=== PATIENT | male | born 1945 | race Caucasian/White ===

== ENCOUNTER 2017-09-27 20:12 | Inpatient (IN) | payer OTHER ==
[~2017-09-27] VITALS: Ht 170.2 cm; Wt 86.9 kg
[~2017-09-27 20:12] MED LIST: ALBU1AER9 INH; ASPEC81 PO; CLB200 PO; FLV1 PO; FRRS300 PO; GFNSR600 PO; LACTATED RINGER'S 1000ML 1,000 ML IV SCH; METH2.5T PO; METO25TA56 PO; RANI150T85 PO; VITA100C4 PO
--- NOTE | 2017-09-27 20:35 | EMERGENCY ROOM VISIT NOTE ---
History Report prepared by Bryant: Zacarias Pan Under the Supervision of: Dr. Papi Hernandez M.D. First contact with patient: 20:20 Chief Complaint: DIZZY Stated Complaint: LIGHTHEADED, PAIN IN LEFT SIDE BACK History of Present Illness The patient is a 72 year old white male with a past medical history of anemia, GERD, CAD, rheumatoid arthritis who presents to the ED with a cc of intermittent lightheadedness beginning 2 days ago. Positive intermittent palpitations, feeling warm, left-sided back pain. Negative eating or drinking problems, abdominal pain, vomiting, cough, chills, numbness, hematochezia, urinary symptoms, or incontinence. He states that being active makes the lightheadedness worse. The patient notes that ever since he has had his heart problems, he has had intermittent palpitations, but it has been happening over the past 2 days as well. He denies any abnormal events that have happened recently that would have caused his dizziness. The [facility]. He adds that he has had some left sided back pain ever since he fell a couple months ago. He notes that he takes baby Aspirin daily but no other blood thinners. He notes no heart surgery history. The patient has no history of blood clots in the legs or lungs. Source of History: patient Onset: 2 days ago Position: other (global) Quality: other (lightheadedness) Timing: intermittent Modifying Factors (Worsening): exertion Modifying Factors (Relieving): rest Associated Symptoms: + back pain, No chills, No cough, No vomiting, No abdominal pain, No hematochezia, No urinary symptoms Note: Positive intermittently feeling warm. Intermittent palpitations. Review of Systems See HPI for pertinent positives and negatives. A total of ten systems were reviewed and were otherwise negative. Past Medical & Surgical Medical Problems: (1) Anemia (2) Esophageal Reflux (3) Gastroesophageal reflux disease (4) Generalized osteoarthritis (5) Rectal hemorrhage (6) Rheumatoid arteritis (7) Rheumatoid Arthritis (8) Sensorineural hearing loss, bilateral Family History No pertinent family history Social History Smoking Status: Former Smoker Alcohol Use: none Marital Status: Current/Historical Medications Scheduled Aspirin (Aspirin 81), 81 MG PO DAILYBB Celecoxib (CeleBREX), 200 MG PO DAILY Cholecalciferol (Vitamin D 1000 Unit), 1,000 INTER.UNIT PO DAILY Folic Acid (Folic Acid), 1 MG PO DAILY Methotrexate (Methotrexate), 15 MG PO WK Metoprolol Tartrate (Lopressor) (Lopressor), 12.5 MG PO BID Nitroglycerin (Nitrostat), 0.4 MG UT PRN Prednisone (Prednisone), 2.5 MG PO DAILY Ranitidine (Zantac), 150 MG PO BID Simvastatin (Zocor), 40 MG PO QPM Vitamin E (E-200), 200 UNITS PO DAILY Scheduled PRN Acetaminophen (Tylenol Arthritis Ext Rel), 650 MG PO Q8H PRN for Pain Tramadol (Ultram), 50 MG PO Q6 PRN for Pain [Proair 108MCG/Act], 2 PUFF INH BID PRN for SOB/Wheezing Allergies Coded Allergies: No Known Allergies (Verified , 07/15/11) Physical Exam Vital Signs Date Time Temp Pulse Resp B/P (MAP) Pulse Ox O2 Delivery O2 Flow Rate FiO2 09/27/17 21:30 87 18 152/89 98 Room Air 09/27/17 21:11 78 18 148/79 99 Room Air 09/27/17 21:10 98 Room Air 09/27/17 21:05 137 147/112 09/27/17 21:00 115 09/27/17 20:14 36.7 73 18 147/106 92 Room Air Physical Exam GENERAL: Awake, alert, well-appearing, NAD. Appears stated age, wearing glasses. HENT: Normocephalic, atraumatic. Edentulous. EYES: Normal conjunctiva. Sclera non-icteric. NECK: Supple. No nuchal rigidity. FROM. RESPIRATORY: CTAB, no rhonchi, wheezing, crackles CARDIAC: RRR, no MRG ABDOMEN: Soft, NTND, BS+ MSK: Reproducible left posterior rib pain, no stepoff. No chest wall TTP, no LE edema NEURO: GCS 15, CN 2-12 intact, moves all 4s on command SKIN: No rash or jaundice noted. Medical Decision & Procedures Laboratory Results 09/27/17 21:00 Red Blood Count 4.74, Mean Corpuscular Volume 77.8, Mean Corpuscular Hemoglobin 24.1, Mean Corpuscular Hemoglobin Concent 30.9, Mean Platelet Volume 8.4, Neutrophils (%) (Auto) 58.3, Lymphocytes (%) (Auto) 25.2, Monocytes (%) (Auto) 13.0, Eosinophils (%) (Auto) 2.5, Basophils (%) (Auto) 1.0, Neutrophils # (Auto ) 3.00, Lymphocytes # (Auto) 1.30, Monocytes # (Auto) 0.67, Eosinophils # (Auto ) 0.13, Basophils # (Auto) 0.05 09/27/17 21:00 Test 09/27/17 21:00 09/27/17 21:04 White Blood Count 5.15 K/uL (4.8-10.8) Red Blood Count 4.74 M/uL (4.7-6.1) Hemoglobin 11.4 g/dL (14.0-18.0) Hematocrit 36.9 % (42-52) Mean Corpuscular Volume 77.8 fL (80-100) Mean Corpuscular Hemoglobin 24.1 pg (25-34) Mean Corpuscular Hemoglobin Concent 30.9 g/dl (32-36) Platelet Count 223 K/uL (130-400) Mean Platelet Volume 8.4 fL (7.4-10.4) Neutrophils (%) (Auto) 58.3 % Lymphocytes (%) (Auto) 25.2 % Monocytes (%) (Auto) 13.0 % Eosinophils (%) (Auto) 2.5 % Basophils (%) (Auto) 1.0 % Neutrophils # (Auto) 3.00 K/uL (1.4-6.5) Lymphocytes # (Auto) 1.30 K/uL (1.2-3.4) Monocytes # (Auto) 0.67 K/uL (0.11-0.59) Eosinophils # (Auto) 0.13 K/uL (0-0.5) Basophils # (Auto) 0.05 K/uL (0-0.2) RDW Standard Deviation 47.5 fL (36.4-46.3) RDW Coefficient of Variation 16.7 % (11.5-14.5) Immature Granulocyte % (Auto) 0.0 % Immature Granulocyte # (Auto) 0.00 K/uL (0.00-0.02) Prothrombin Time 10.8 SECONDS (9.0-12.0) Prothromb Time International Ratio 1.0 (0.9-1.1) Activated Partial Thromboplast Time 23.9 SECONDS (21.0-31.0) Partial Thromboplastin Ratio 0.9 Anion Gap 7.0 mmol/L (3-11) Est Creatinine Clear Calc Drug Dose 52.0 ml/min Estimated GFR () 61.2 Estimated GFR (Non- 52.8 BUN/Creatinine Ratio 14.7 (10-20) Calcium Level 8.6 mg/dl (8.5-10.1) Phosphorus Level 3.3 mg/dl (2.5-4.9) Magnesium Level 2.3 mg/dl (1.8-2.4) Troponin I < 0.015 ng/ml (0-0.045) Pro-B-Type Natriuretic Peptide 427 pg/ml (0-900) Thyroid Stimulating Hormone (TSH) 2.510 uIu/ml (0.300-4.500) Bedside Troponin I < 0.030 ng/ml (0-0.045) Laboratory results reviewed by me Medications Administered Medications (Trade) Dose Ordered Sig/Sherie Route Start Time Stop Time Status Last Admin Dose Admin Sodium Chloride 500 ml @ 500 mls/hr Q1H STAT IV 09/27/17 20:58 09/27/17 21:57 DC 09/27/17 21:02 500 MLS/HR Metoprolol Tartrate (Lopressor Iv) 5 mg STK-MED ONCE .ROUTE 09/27/17 20:58 09/27/17 20:59 DC 09/27/17 21:05 5 MG ECG Per My Interpretation Indication: other (dizzy) Rate (beats per minute): 120 Rhythm: atrial fibrillation (with RVR) Findings: other (normal qrs, normal axis, occasional P-waves but they are not consistent, PVC's noted) Comparison ECG Date: afib is new compared to 05/30/17, and ventricular rate has changed Change: 2nd ECG: Sinus rhythm with sinus arrhythmia, rate of 77 bpm, normal intervals, normal axis, no sts changes or twi. ED Course 2025: The patient was evaluated in room B3B. A complete history and physical exam was performed. 2152: I reevaluated the patient and his rate is better. 2158: Upon reexamination, the patient was feeling better. I discussed the test results and treatment plan with him. The patient will be evaluated for further management. 2211: Discussed the patient's case with Dr. Jeremiah Sanders beef trimmer. The patient will be evaluated for further treatment and disposition. Medical Decision Nursing notes reviewed. Ancillary studies and prior records reviewed. The patient is a 72 year old white male with a past medical history of anemia, GERD, CAD, rheumatoid arthritis who presents to the ED with a cc of intermittent lightheadedness beginning 2 days ago. Positive intermittent palpitations, feeling warm, left-sided back pain. Negative eating or drinking problems, abdominal pain, vomiting, cough, chills, numbness, hematochezia, urinary symptoms, or incontinence. Differential diagnosis: Etiologies such as benign positional vertigo, dehydration, hypovolemia, anemia, tumor, infection, hypoglycemia, electrolyte abnormalities, cardiac sources, intracerebral event, toxicologic, neurologic, as well as others were entertained. Patient was seen and evaluated at the bedside. Patient had been complaining some intermittent lightheadedness. Patient states it is more present when he is up and about walking. Patient denies any syncope. Patient does take a baby aspirin but no other blood thinning medications. Patient does have prior history of inferior [place] in the 80s but was treated medically and not with any other surgical intervention. On exam the patient is well-appearing. Patient did have blood work completed, EKG, troponin, BNP, chest x-ray. Patient 's EKG did show questionable A. fib. There did appear to be intermittent P waves and these appeared to be buried in the T-wave. Unsure as to whether not this is an intermittent sinus with a possible SVT or if this is just sinus tachycardia. There is also possibility that is intermittent sinus with possible A. fib. The morphology is fairly monomorphic with a narrow QRS complex. Given that the patient has been on Lopressor he was given IV Lopressor with improvement in both his symptoms as well as his tachycardia. Repeat EKG did show sinus with sinus arrhythmia. No obvious ischemic changes and he had normal intervals. Given the patient's symptoms with questionable A. fib versus some other sort of arrhythmia believe that the patient would benefit from further evaluation and treatment per the hospitalist and quite possibly the hand weaver given the patient has not had any testing that I can see in the EMR in many years. Patient was admitted for further evaluation and treatment. Medication Reconcilliation Current Medication List: was personally reviewed by me Blood Pressure Screening Patient's blood pressure: Elevated blood pressure Referred to hospitalist. Consults Time Called: 2204 Consulting Physician: Dr. Jeremiah Sanders beef trimmer Returned Call: [id number] Discussed the patient's case with Dr. Jeremiah Sanders beef trimmer. The patient will be evaluated for further treatment and disposition. Impression Primary Impression: Atrial fibrillation with RVR Additional Impressions: Anemia Dizziness Critical Care I have personally spent greater than 35 minutes of critical care time in the direct management of this patient. This includes bedside care, interpretation of diagnostic studies, and testing, discussion with consultants, patient, and family members, and other required patient management activities. This 35 minutes is in excess of all separately billable procedures. Scribe Attestation The scribe's documentation has been prepared under my direction and personally reviewed by me in its entirety. I confirm that the note above accurately reflects all work, treatment, procedures, and medical decision making performed by me. Departure Information Dispostion Being Evaluated By Hospitalist Referrals Stanley Christian III, M.D. (PCP) Patient Instructions My [facility] Problem Qualifiers Additional Impressions: Anemia Anemia type: unspecified type Qualified Codes: D64.9 - Anemia, unspecified
[2017-09-27] MEDS ORDERED: METOPROLOL TARTRATE 1 MG/ML VIAL IV STA (20:58)
[2017-09-27] MEDS ORDERED: SODIUM CHLORIDE 0.9% 500ML 500 ML IV STA (20:58)
[2017-09-27] MEDS ORDERED: METOPROLOL TARTRATE 1 MG/ML VIAL ONE (20:58)
[2017-09-27 21:12] LABS: BASO ABS # 0.05 K/uL (0-0.2); EOS % 2.5 %; EOS ABS # 0.13 K/uL (0-0.5); HEMATOCRIT 36.9 % (42-52); HEMOGLOBIN 11.4 g/dL (14.0-18.0); LYMPH % 25.2 %; MEAN CELL VOLUME 77.8 fL (80-100); MEAN CORPUSCULAR HEMOGLOBIN 24.1 pg (25-34); MEAN CORPUSCULAR HGB CONC 30.9 g/dl (32-36); MEAN PLATELET VOLUME 8.4 fL (7.4-10.4); MONO ABS # 0.67 K/uL (0.11-0.59); NEUT % 58.3 %; PLATELET COUNT 223 K/uL (130-400); RED CELL DISTRIBUTION WIDTH CV 16.7 % (11.5-14.5); RED CELL DISTRIBUTION WIDTH SD 47.5 fL (36.4-46.3); WHITE BLOOD COUNT 5.15 K/uL (4.8-10.8)
[2017-09-27 21:20] LABS: PTT PATIENT 23.9 SECONDS (21.0-31.0)
[2017-09-27] MEDS ORDERED: PRD/25 PO (21:30)
[2017-09-27] MEDS ORDERED: FLV1 PO (21:30)
[2017-09-27] MEDS ORDERED: CLB/200 PO (21:30)
[2017-09-27] MEDS ORDERED: ASPI-435 PO (21:30)
[2017-09-27] MEDS ORDERED: VITACAP36 PO (21:30)
[2017-09-27] MEDS ORDERED: ACET1TAB84 PO (21:30)
[2017-09-27] MEDS ORDERED: TRAM-10 PO (21:30)
[2017-09-27] MEDS ORDERED: NTRGSL/4 UT (21:30)
[2017-09-27] MEDS ORDERED: CHOL100027 PO (21:30)
[2017-09-27] MEDS ORDERED: SIMV40TA2 PO (21:30)
[2017-09-27] MEDS ORDERED: PROAIR INH (21:30)
[2017-09-27 21:34] LABS: BLOOD UREA NITROGEN 19 mg/dl (7-18); CALCIUM 8.6 mg/dl (8.5-10.1); CARBON DIOXIDE 26 mmol/L (21-32); CREATININE 1.32 mg/dl (0.60-1.40); GLUCOSE 111 mg/dl (70-99); POTASSIUM 3.7 mmol/L (3.5-5.1); SODIUM 140 mmol/L (136-145)
[2017-09-27 21:45] LABS: PHOSPHORUS 3.3 mg/dl (2.5-4.9)
[2017-09-27] MEDS ORDERED: METOPROLOL SUCC 25MG EXT REL TAB PO STA (21:53)
--- NOTE | 2017-09-27 22:42 | DIAGNOSTIC IMAGING REPORT ---
L RIBS UNILATERAL WITH PA CHEST CLINICAL HISTORY: lightheadedness, fall w/ L posterior rib pain COMPARISON STUDY: Chest 08/09/2007. FINDINGS: No pneumothorax. No pleural effusions. Retrocardiac opacity suggestive of a large hiatus hernia. The heart remains mildly enlarged. The lungs are clear. Deformity of the left anterior fourth rib favors an old, healed fracture. No acute rib fractures identified. IMPRESSION: 1. No acute rib fractures. No pneumothorax. 2. Large hiatus hernia is again noted. Electronically signed by: Farhad Ascencio M.D. 09/27/2017 10:41 PM Dictated Date/Time: 09/27/2017 10:38 PM
[2017-09-27] MEDS ORDERED: POTASSIUM CHLORIDE 10 MEQ TABCR PO STA (22:48)
[2017-09-27] MEDS ORDERED: OPTIRAY 320 IV PRN (23:15)
[2017-09-27] MEDS ORDERED: LACTATED RINGER'S 1000ML 1,000 ML IV SCH (23:15)
[2017-09-27 23:17] LABS: ALBUMIN 3.7 gm/dl (3.4-5.0); AST/SGOT 19 U/L (15-37); LIPASE 238 U/L (73-393); TOTAL PROTEIN 7.7 gm/dl (6.4-8.2)
[2017-09-27 23:21] LABS: ALKALINE PHOSPHATASE 92 U/L (45-117); ALT/SGPT 20 U/L (12-78)
[2017-09-28] VITALS (14 sets, daily range): BP systolic 137–166; BP diastolic 70–97; PULSE 68–90; TEMP 36.7–37.2; O2SAT 94–96; Ht 170.2 cm; Wt 86.9 kg
[2017-09-28] MEDS ORDERED: LEVALBUTEROL/IPRATROPIUM NEB INH PRN
[2017-09-28] MEDS ORDERED: ACETAMINOPHEN 325 MG TAB PO PRN
[2017-09-28] MEDS ORDERED: TRAMADOL HCL 50 MG TAB PO PRN
[2017-09-28] MEDS ORDERED: HYDROmorphone INJ 0.5 MG/0.5 ML SYR IV PRN
[2017-09-28] MEDS ORDERED: NITROGLYCERIN 0.4 MG SL PER TAB CHARGE SL PRN
[2017-09-28] MEDS ORDERED: PROCHLORPERAZINE INJ 5 MG in SYRINGE 4 ML IV PRN
[2017-09-28] MEDS ORDERED: ASPIRIN 81 MG ECTAB PO STA (00:35)
[2017-09-28] MEDS ORDERED: IV FLUIDS COMPLETED PRN (00:45)
[2017-09-28] MEDS ORDERED: IPRATROPIUM BROMIDE NEB SOLN 0.02% 2.5 ML VIAL INH PRN (02:00)
[2017-09-28] MEDS ORDERED: LEVALBUTEROL 1.25MG/0.5ML NEB INH PRN (02:00)
[2017-09-28] MEDS ORDERED: LACTATED RINGER'S 1000ML 1,000 ML IV ONE (02:30)
[2017-09-28] MEDS ORDERED: ENOXAPARIN 40 MG/0.4 ML SYR SC SCH (04:00)
--- NOTE | 2017-09-28 04:34 | HISTORY & PHYSICAL EXAMINATION ---
DATE OF ADMISSION: 09/27/2017 PRIMARY CARE PHYSICIAN: Dr. Castro. CHIEF COMPLAINT: Dizziness, palpitations. HISTORY OF PRESENT ILLNESS: History obtained from patient and records. Medical history significant for CAD, hypertension, steroid-dependent rheumatoid arthritis, past tobacco abuse, chronic anemia (recent hemoglobin 13 from November 2015). Recent confinement last 2011 for C. diff colitis. Two days history of palpitations, dizziness described as lightheadedness, no headache, no chest pain, no shortness of breath. Left-sided back pain which he has had for a few weeks after a fall on his left side. Patient complaint with home meds, denies unusual stress at home or inordinate caffeine intake. Patient brought to the Emergency Room. Patient noted to be tachycardic upon arrival in the ER, possible AFib as per ER provider. Patient's heart rate settled down after IV fluids and IV Lopressor. Patient also given Toprol-XL at the ER. Patient currently comfortable. MEDICAL HISTORY: As above. History of CAD not requiring intervention about 20 years ago. Cardiac catheterization was done at [facility]. 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 Hampton at [place]. Last follow up was about 20 years ago as per patient. Colonoscopy from 2015 showed diverticulosis, 2009 upper EGD showed gastritis. SURGERIES: Carpal tunnel surgery, back surgery. HOME MEDICATIONS: Include aspirin, Tylenol, Celebrex, vitamin D, folic acid, methotrexate, Lopressor, Nitrostat, ProAir, prednisone, Ultram, Zantac, vitamin B, vitamin E. ALLERGIES: No known drug allergies. FAMILY HISTORY: Heart disease. PERSONAL AND SOCIAL HISTORY: Past tobacco use. No chronic intake of alcoholic beverages. 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 REVIEW OF SYSTEMS: As per HPI. All 10 systems reviewed, all other ROS negative. PHYSICAL EXAMINATION: VITAL SIGNS: Blood pressure was noted to be 147/106, later 130/80, pulse rate initially 137 later 78, RR 18, temperature 36.7, sats 98 on RA. GENERAL: Very pleasant, no respiratory distress. Slightly hard of hearing. SKIN: Pallor, warm. HEENT: Alopecia. Pale palpebral conjunctiva. No ptosis. Dry mucosa. NECK: Short, supple. CHEST: Clear to auscultation. Minimal chest wall tenderness left. HEART: RRR, no murmur ABD : Some distention, nontender RECTAL: Intact sphincter, yellow stool, heme negative. EXTREMITIES: No edema. No tenderness, no other gross deformities. . NEUROLOGIC: Coherent. No gross focality except for some hearing impairment on the right ear. LABORATORY DATA: Hg 11.4 WBC 5 Platelets 223. Sodium 140, potassium 3.7, chloride 107, CO2 26, BUN 90, creatinine 1.2, glucose 111. TSH 2.51. Troponin negative. EKG as per my interpretation, rate 120, sinus tachycardia, PVCs, no ischemia. CT head, no acute pathology. CTA initial read no aortic aneurysm, no PE, chronic calcifications, large hiatal hernia, no stomach wall thickening, calcified atelectasis. ASSESSMENT: 1. Palpitations, dizziness secondary to tachyarrhythmia rule out atrial fibrillation. Rule out orthostasis 2. Hypertension, slightly elevated. 3. Coronary artery disease as per records. 4. Past tobacco abuse. 5. Steroid dependent rheumatoid arthritis. 6. Hyperglycemia, possibly steroid induced rule out DM. 7. Left-sided chest wall pain from recent fall No fracture on rib x-ray. 8. Anemia PLAN: Observation PCU Double beta brenda dose. Maintain potassium greater than 4 2D echo, Cardio consult RE palpitations. Check orthostatic vitals. Anemia workup. Check hemoglobin A1c. DVT prophylaxis, Lovenox subQ. Full code. MTDD
[2017-09-28 05:32] LABS: BASO % 1.5 %; BASO ABS # 0.07 K/uL (0-0.2); EOS ABS # 0.14 K/uL (0-0.5); HEMATOCRIT 32.4 % (42-52); HEMOGLOBIN 9.9 g/dL (14.0-18.0); IG# 0.01 K/uL (0.00-0.02); LYMPH ABS # 1.06 K/uL (1.2-3.4); MEAN CELL VOLUME 77.9 fL (80-100); MEAN CORPUSCULAR HEMOGLOBIN 23.8 pg (25-34); MEAN CORPUSCULAR HGB CONC 30.6 g/dl (32-36); MEAN PLATELET VOLUME 8.1 fL (7.4-10.4); MONO % 15.2 %; NEUT % 57.1 %; NEUT ABS # 2.62 K/uL (1.4-6.5); PLATELET COUNT 200 K/uL (130-400); RED CELL DISTRIBUTION WIDTH CV 16.7 % (11.5-14.5); RED CELL DISTRIBUTION WIDTH SD 47.1 fL (36.4-46.3); RETIC COUNT % 1.4 % (0.5-2.0)
[2017-09-28 06:03] LABS: BLOOD UREA NITROGEN 17 mg/dl (7-18); CALCIUM 8.1 mg/dl (8.5-10.1); CARBON DIOXIDE 26 mmol/L (21-32); CREATININE 0.95 mg/dl (0.60-1.40); GLUCOSE 94 mg/dl (70-99); SODIUM 141 mmol/L (136-145)
[2017-09-28 06:16] LABS: TRANSFERRIN 305 mg/dl (200-360)
--- NOTE | 2017-09-28 06:45 | DIAGNOSTIC IMAGING REPORT ---
CT ANGIOGRAM OF THE CHEST CLINICAL HISTORY: Left-sided chest pain COMPARISON STUDY: Chest x-ray dated 05/25/2010 TECHNIQUE: Following the IV administration of 110 mL of Optiray-320, CT angiogram of the thorax was performed from the thoracic inlet to the lung bases utilizing the pulmonary embolus protocol. Images are reviewed in the axial, sagittal, and coronal planes. IV contrast was administered without complication. MIP imaging was performed. A dose lowering technique was utilized adhering to the principles of ALARA. CT DOSE: 520.22 mGy.cm FINDINGS: There is a moderate hiatal hernia. No pathologically enlarged axillary mediastinal or hilar lymph nodes were visualized. There was no evidence of thoracic aortic dilatation. There were no pulmonary artery filling defects to indicate acute pulmonary embolism. No pleural effusions are visualized. There is respiratory motion artifact. Underlying emphysema is suspected. There is slight mosaic attenuation of the lungs suggesting airway trapping. There is mild subpleural reticulation within the upper lobes. There is a calcified granuloma within the left upper lobe. There is no focal pulmonary consolidation. There are healing left-sided rib fractures. IMPRESSION: 1. No CT evidence of acute pulmonary embolism 2. No evidence of focal pulmonary consolidation 3. Moderate hiatal hernia with both a sliding and paraesophageal component. 4. No evidence of focal pneumonia 5. Healing left-sided rib fractures Electronically signed by: Natanael Avitia M.D. 09/28/2017 6:44 AM Dictated Date/Time: 09/28/2017 6:40 AM
--- NOTE | 2017-09-28 07:13 | DIAGNOSTIC IMAGING REPORT ---
HEAD WITHOUT CONTRAST (CT) CLINICAL HISTORY: 72 years-old Male presenting with dizziness, fall. TECHNIQUE: Multidetector CT imaging of the head was performed without the use of intravenous contrast. IV contrast: None. A dose lowering technique was used consistent with the principles of ALARA (as low as reasonably achievable). COMPARISON: 03/26/2008. CT DOSE (mGy.cm): The estimated cumulative dose is 537.48 mGy.cm. FINDINGS: Recycling Operations Manager topogram: Unremarkable. Proportional ventricular and sulcal prominence, likely age-related parenchymal volume loss. Brain parenchyma normal in appearance with preserved white-white differentiation. No mass effect or midline shift. No hemorrhage or acute territorial infarct. No extra-axial fluid collection. Paranasal sinuses and mastoid air cells clear. Calvarium intact. IMPRESSION: 1. No acute intracranial abnormality. Electronically signed by: Nelson Crowley M.D. 09/28/2017 7:12 AM Dictated Date/Time: 09/28/2017 6:46 AM
[2017-09-28 07:31] LABS: HEMOGLOBIN A1C 5.8 % (4.5-5.6)
[2017-09-28] MEDS ORDERED: AMIODARONE IV BOLUS / DRIP IV STA (08:41)
[2017-09-28] MEDS ORDERED: 0.2 MICRON FILTER SET 1 EA IV SCH (09:00)
[2017-09-28] MEDS ORDERED: AMIODARONE / D5W 100 ML PHARMACY PREPARED IV SCH ×2 (09:00)
[2017-09-28] MEDS ORDERED: AMIODARONE / D5W 200 ML IV SCH (09:10)
[2017-09-28] MEDS: RANITIDINE HCL 150 MG TAB PO SCH ×2 (09:11→20:25)
[2017-09-28 09:53] LABS: BASO % 1.3 %; BASO ABS # 0.06 K/uL (0-0.2); EOS % 2.1 %; HEMATOCRIT 33.3 % (42-52); HEMOGLOBIN 10.3 g/dL (14.0-18.0); LYMPH % 19.4 %; LYMPH ABS # 0.91 K/uL (1.2-3.4); MEAN CELL VOLUME 78.2 fL (80-100); MEAN CORPUSCULAR HEMOGLOBIN 24.2 pg (25-34); MEAN PLATELET VOLUME 8.4 fL (7.4-10.4); MONO ABS # 0.61 K/uL (0.11-0.59); NEUT % 64.2 %; NEUT ABS # 3.01 K/uL (1.4-6.5); PLATELET COUNT 208 K/uL (130-400); RED CELL DISTRIBUTION WIDTH CV 16.8 % (11.5-14.5); RED CELL DISTRIBUTION WIDTH SD 47.7 fL (36.4-46.3); WHITE BLOOD COUNT 4.69 K/uL (4.8-10.8)
[2017-09-28 09:57] LABS: MEAN CORPUSCULAR HGB CONC 30.9 g/dl (32-36)
[2017-09-28 10:01] LABS: PTT PATIENT 25.9 SECONDS (21.0-31.0)
--- NOTE | 2017-09-28 10:05 | ECHOCARDIOGRAM REPORT ---
*NOTICE TO RECEIVING REPUBLICAN AGENCY This information is strictly Confidential and protected under [place] law. [place] law prohibits you from making any further disclosure of this information unless further disclosure is expressly permitted by the written consent of the person to whom it pertains or is authorized by law. A general authorization for the release of medical or other information is not sufficient for this purpose. Hospital accepts no responsibility if the information is made available to any other person, INCLUDING THE PATIENT. Interpretation Summary * Name: MELVI PABON Study Date: 09/28/2017 07:59 AM BP: 137/87 mmHg * Patient Location: [facility] HR: 77 * : 1945 (M/d/yyyy) Gender: Male Height: 67 in * Age: 72 yrs Ethnicity: CA Weight: 194 lb * Ordering Physician: Moises Daniels * Referring Physician: Self, Referred * Performed By: Claudia Fernandes RCS * * Reason For Study: PALPITATIONS * BSA: 2.0 m2 * -- Conclusions -- * Normal LV chamber size with mild concentric LVH. * Mildly reduced LV systolic function, EF 45-50%. * Moderate to severe hypokinesis of the inferior/inferolateral rios, otherwise, normal wall motion. * The right ventricular cavity size is normal (basal dimension <4.2 cm in right ventricular apical 4-chamber view). The right ventricular systolic function is normal as assessed by tricuspid annular plane systolic excursion (TAPSE) (normal >1.5 cm). * Trace mitral regurgitation. * Trace tricuspid regurgitation. * Pulmonary hypertension is present with a PASP of 42 mmHg assuming a RA pressure of 3 mmHg. Procedure Details * A complete two-dimensional transthoracic echocardiogram was performed (2D, M-mode, Doppler and color flow Doppler). Left Ventricle * The left ventricle is normal in size. * There is mild concentric left ventricular hypertrophy. * Left ventricular systolic function is mildly reduced. * Ejection Fraction = 45-50%. * Moderate to severe hypokinesis of the inferior/inferolateral rios, otherwise, normal wall motion. Right Ventricle * The right ventricular cavity size is normal (basal dimension <4.2 cm in right ventricular apical 4-chamber view). * The right ventricular systolic function is normal as assessed by tricuspid annular plane systolic excursion (TAPSE) (normal >1.5 cm). Atria * The left atrial size is normal. * Right atrial size is normal. * No ASD detected; PFO is not assessed. Mitral Valve * The mitral valve anatomy is normal. * There is no mitral valve stenosis. * There is trace mitral regurgitation. Tricuspid Valve * The tricuspid valve anatomy is normal. * There is no tricuspid stenosis. * There is trace tricuspid regurgitation. Aortic Valve * The aortic valve is not well visualized. * No hemodynamically significant valvular aortic stenosis. * There is no significant aortic regurgitation. Pulmonic Valve * The pulmonary valve is not well seen, but the Doppler examination is normal without significant regurgitation or stenosis. Great Vessels * The aortic root is normal size. Pericardium/Pleural * There is no pericardial effusion. Left Ventricular Diastolic Function * Grade I diastolic dysfunction, (abnormal relaxation pattern). MMode 2D Measurements and Calculations IVSd 1.3 cm IVSs 1.4 cm LVIDd 4.5 cm LVIDs 4.0 cm LVPWd 1.4 cm LVPWs 1.3 cm IVS/LVPW 0.95 FS 11.9 % EDV(Teich) 91.8 ml ESV(Teich) 68.1 ml EF(Teich) 25.9 % EDV(cubed) 90.3 ml ESV(cubed) 61.8 ml EF(cubed) 31.6 % % IVS thick 7.9 % % LVPW thick -6.32 % LV mass(C)d 238.1 grams LV mass(C)dI 119.3 grams/m\S\2 LV mass(C)s 199.4 grams LV mass(C)sI 99.9 grams/m\S\2 SV(Teich) 23.7 ml SI(Teich) 11.9 ml/m\S\2 SV(cubed) 28.5 ml SI(cubed) 14.3 ml/m\S\2 Ao root diam 3.4 cm Ao root area 9.3 cm\S\2 ACS 2.1 cm LA dimension 3.7 cm LA/Ao 1.1 LVOT diam 2.0 cm LVOT area 3.1 cm\S\2 Doppler Measurements and Calculations Ao V2 max 147.1 cm/sec Ao max PG 8.7 mmHg Ao max PG (full) 5.7 mmHg PRACHI(V,A) 1.8 cm\S\2 PRACHI(V,D) 1.8 cm\S\2 LV V1 max PG 2.9 mmHg LV V1 max 85.6 cm/sec MR max pb 503.8 cm/sec MR max PG 101.5 mmHg PA V2 max 108.3 cm/sec PA max PG 4.7 mmHg TR max pb 313.5 cm/sec
[2017-09-28] MEDS: HEPARIN 25,000 UNIT/500ML D5W 500 ML IV SCH (10:20)
--- NOTE | 2017-09-28 14:46 | CARDIOLOGY CONSULTATION ---
DATE OF CONSULTATION: 09/28/2017 CONSULTATION REQUESTED BY: Dr. Daniels. REASON FOR CONSULTATION: Paroxysmal atrial fibrillation and ventricular tachycardia. HISTORY OF PRESENT ILLNESS: Mr. Tellez is a very pleasant 72-year-old gentleman who was last seen by a professional nursing assistant in 2004 in [place]. He presents to [facility] late in the evening of 09/27/2017 with a complaint of palpitations and lightheadedness and dizziness. The patient states that for the 2 days prior to presentation, he noticed that his heart was started beating very rapidly in his chest and that will be associated with some lightheadedness and dizziness. He states that these episodes were very fleeting and would only last a few seconds. They can occur either at rest or with exertion and were occurring rather frequently. When the frequency further increased and his dizziness became worse, he came into the Emergency Department. In the ER, he was found to be tachycardic. There was reported to be AFib by ER staff and a 12-lead EKG does confirm atrial fibrillation; however, the patient converted to sinus rhythm. His beta brenda dose was increased and he was admitted to telemetry. The patient states that since admission, he has been feeling much better and gets occasional lightheadedness while lying flat, but has not had any further dizzy spells. He states he is not syncopized at all and denies any recent chest pain either. PAST SURGICAL HISTORY: 1. Cardiac catheterization over 15 years ago. The patient reports that an artery in the back of his heart was blocked, but no intervention was needed. Records not available. 2. Carpal tunnel surgery. 3. Colonoscopies. 4. Upper endoscopies. MEDICAL ILLNESSES: 1. Coronary artery disease, unclear extent. 2. Osteoarthritis. 3. GERD. 4. Hearing loss. 5. Chronic anemia. 6. C. diff infection. FAMILY HISTORY: Noncontributory. SOCIAL HISTORY: Former smoker, quit approximately 20 years ago. Denies any alcohol or recreational drug use. He is . He has 1 child, who is in good health. 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 REVIEW OF SYSTEMS: As per HPI. All other review of systems reviewed and negative at this time. ALLERGIES: HUMIRA. MEDICATIONS AN OUTPATIENT: 1. Metoprolol tartrate 25 mg b.i.d. 2. Aspirin 81 mg daily. 3. Simvastatin 40 mg daily. 4. Zantac b.i.d. 5. Prednisone daily. PHYSICAL EXAMINATION: VITALS: Temperature 36.8, pulse 76, respiratory rate 12, and blood pressure 137/87. GENERAL: Awake, alert, and oriented x3, in no acute distress. HEENT: Normocephalic and atraumatic. Pupils equal, round react to light and accommodation. Extraocular muscles intact. Anicteric sclerae. Moist mucous membranes. NECK: No JVD and no bruit. CARDIOVASCULAR: Regular. Positive S4. Normal S1 and S2. No S3. No murmurs or rubs. PULMONARY: Clear to auscultation bilaterally. No rales, rhonchi, or wheezing. ABDOMEN: Bowel sounds x4. Soft. No rebound, guarding, or tenderness. No organomegaly. EXTREMITIES: No clubbing, cyanosis or edema. +2 pedal pulses bilaterally. SKIN: Warm and dry. TEST RESULTS: Review of telemetry monitoring shows multiple salvos of narrow complex tachycardia in the 150-180 range, possibly atrial flutter. Further review shows salvos of nonsustained ventricular tachycardia in a torsades de pointes pattern with variable amplitude. The patient's symptoms correlated with ventricular tachycardia. Otherwise, sinus rhythm. LABORATORY STUDIES OF SIGNIFICANCE: Hemoglobin 10.3 and platelet count of 208. INR of 1. Sodium 141, potassium 4, BUN 17, creatinine 1, and magnesium 2.3. A 2D echocardiogram was read as normal LV chamber size, mild concentric LVH, mildly reduced LV systolic function, EF 45%-50%, moderate to severe hypokinesis of the inferior and inferolateral rios. Otherwise, normal wall motion. Normal RV chamber size and systolic function, trace mitral regurgitation, and trace tricuspid regurgitation. Pulmonary hypertension is present with a PA systolic pressure of 42 mmHg assuming a right atrial pressure of 3 mm. Normal left atrial size. IMPRESSION: 1. Symptomatic nonsustained ventricular tachycardia. 2. Paroxysmal narrow complex tachycardia, likely atrial flutter. 3. Inferior wall hypokinesis on echocardiogram. RECOMMENDATIONS: It was my pleasure to see Mr. Tellez in consultation today. The pathophysiology of SVT and ventricular tachycardia were discussed with him at great lengths. He was counseled at this point with that we will be started him on amiodarone to suppress both the atrial and ventricular arrhythmias. The grave nature of ventricular tachycardia was discussed with him and he was counseled given the fact that he does have inferior wall motion abnormalities on echo and I do believe the most prudent course of action would be to proceed with cardiac catheterization in the a.m. once his arrhythmias have stabilized. He has no signs of any active ischemia at this time, so I do not believe an urgent catheterization is necessary and I prefer to have his arrhythmia suppressed with amiodarone first. Otherwise, he is having paroxysms of atrial flutter, so heparin drip will be started and he will likely be transitioned to a novel oral anticoagulant after the catheterization. Otherwise, his metoprolol dose was increased on admission to 25 mg b.i.d. and I agree with this. We may even consider titrating up further to 25 mg q. 6 hours should his arrhythmias persist. Otherwise, the patient will be made n.p.o. after midnight and the patient will be kept under close observation on the telemetry unit. Of note, approximately 2 hours and 30 minutes were spent in direct patient care at the bedside and with nursing for this consultation.
[2017-09-28] MEDS: AMIODARONE / D5W 200 ML IV SCH (15:28)
[2017-09-28 16:36] LABS: PTT PATIENT 47.7 SECONDS (21.0-31.0)
--- NOTE | 2017-09-28 18:32 | Progress Note ---
Internal Med Progress Note Date of Service: Sep 28, 2017. Provider Documentation: SUBJECTIVE: Denies of any chest pain, no shortness of breath No dizzy spells no palpitation Denies of any discomfort OBJECTIVE: Vital Signs-as noted below Exam: General-very pleasant, no apparent distress Eyes-sclera nonicteric ENT-moist oral mucosa Neck-no JVD Lungs-clear to auscultate, no wheeze or rales Heart-irregular Abdomen-soft nontender Extremities-no lower extremity rash, no deformity, no lower extremity edema Neuro-alert awake oriented 3, no focal neurological deficit Lab data as noted below. ASSESSMENT & PLAN: PAROXYSMAL A FLUTTER /A. FIB: Presents with palpitation, dizziness spell EKG shows narrow complex tachycardia/flutter with heart rate of 150-180, Patient started with beta-brenda Lopressor 25 mg twice daily IV heparin weight-based protocol SYMPTOMATIC NONSUSTAINED VENTRICULAR TACHYCARDIA Possible secondary to ischemic cardiomyopathy Echo shows moderate to severe hypokinesis of the inferior and inferolateral rios. EF 45-50% Patient started on amiodarone Scheduled for cardiac cath tomorrow to assess for coronary artery disease HISTORY OF CORONARY ARTERY DISEASE -Presents with ischemic cardiomyopathy, arrhythmia related to ACS Appreciate input from cardiology Patient is continued with cardiac meds Added IV heparin weight-based protocol Resting echo shows moderate to severe hypokinesis of the inferior inferior lateral wall -Scheduled for diagnostic and possible intervention cardiac cath tomorrow Patient is ordered n.p.o. past midnight ACUTE RENAL FAILURE Creatinine was elevated to 1.3 on presentation Possible secondary to poor perfusion in the setting of cardiac arrhythmia Creatinine improved to 0.95 today Estimated GFR 71.5 Patient will need close monitoring of renal function post cardiac cath to assess for contrast-induced nephropathy CODE STATUS: Full code DVT PROPHYLAXIS IV heparin DISPOSITION Expected to be discharged home when medically stable Will need PT OT evaluation prior to discharge Close follow-up with [facility] cardiology as an outpatient Vital Signs: Date Time Temp Pulse Resp B/P (MAP) Pulse Ox O2 Delivery O2 Flow Rate FiO2 09/29/17 12:00 97 Room Air 09/29/17 11:13 36.3 58 20 128/71 (90) 95 Room Air 09/29/17 08:00 97 Room Air 09/29/17 07:29 36.5 63 20 147/95 (112) 97 Room Air 09/29/17 04:00 Room Air 09/29/17 03:50 36.6 62 19 137/80 (99) 95 Room Air 09/29/17 00:02 36.6 68 20 148/92 (110) 96 Room Air 09/28/17 23:59 94 Room Air 09/28/17 20:00 94 Room Air 09/28/17 19:33 37.0 73 19 142/87 (105) 94 Room Air 09/28/17 16:06 96 Room Air 09/28/17 15:32 37.0 68 20 149/90 (109) 95 Room Air Lab Results: Results Past 24 Hours Test 09/28/17 16:09 09/29/17 06:12 Range/Units Activated Partial Thromboplast Time 47.7 65.9 21.0-31.0 SECONDS Partial Thromboplastin Ratio 1.8 2.5 White Blood Count 6.30 4.8-10.8 K/uL Red Blood Count 4.37 4.7-6.1 M/uL Hemoglobin 10.3 14.0-18.0 g/dL Hematocrit 34.3 42-52 % Mean Corpuscular Volume 78.5 80-100 fL Mean Corpuscular Hemoglobin 23.6 25-34 pg Mean Corpuscular Hemoglobin Concent 30.0 32-36 g/dl Platelet Count 226 130-400 K/uL Mean Platelet Volume 8.9 7.4-10.4 fL Neutrophils (%) (Auto) 64.5 % Lymphocytes (%) (Auto) 17.5 % Monocytes (%) (Auto) 13.8 % Eosinophils (%) (Auto) 2.9 % Basophils (%) (Auto) 1.1 % Neutrophils # (Auto) 4.07 1.4-6.5 K/uL Lymphocytes # (Auto) 1.10 1.2-3.4 K/uL Monocytes # (Auto) 0.87 0.11-0.59 K/uL Eosinophils # (Auto) 0.18 0-0.5 K/uL Basophils # (Auto) 0.07 0-0.2 K/uL RDW Standard Deviation 48.0 36.4-46.3 fL RDW Coefficient of Variation 16.8 11.5-14.5 % Immature Granulocyte % (Auto) 0.2 % Immature Granulocyte # (Auto) 0.01 0.00-0.02 K/uL
[2017-09-28] MEDS: ASPIRIN 81 MG ECTAB PO SCH (20:24)
[2017-09-28] MEDS: METOPROLOL TARTRATE 25 MG TAB PO SCH (20:24)
[2017-09-29] VITALS (12 sets, daily range): BP systolic 112–149; BP diastolic 65–95; PULSE 58–76; TEMP 36.3–36.9; O2SAT 95–97
[2017-09-29] MEDS: HEPARIN 25,000 UNIT/500ML D5W 500 ML IV SCH ×3 (03:50→23:52)
[2017-09-29] MEDS: AMIODARONE / D5W 200 ML IV SCH (03:50)
[2017-09-29 07:10] LABS: BASO % 1.1 %; BASO ABS # 0.07 K/uL (0-0.2); EOS % 2.9 %; EOS ABS # 0.18 K/uL (0-0.5); HEMATOCRIT 34.3 % (42-52); HEMOGLOBIN 10.3 g/dL (14.0-18.0); IG# 0.01 K/uL (0.00-0.02); LYMPH % 17.5 %; MEAN CELL VOLUME 78.5 fL (80-100); MEAN CORPUSCULAR HEMOGLOBIN 23.6 pg (25-34); MEAN PLATELET VOLUME 8.9 fL (7.4-10.4); MONO % 13.8 %; MONO ABS # 0.87 K/uL (0.11-0.59); NEUT % 64.5 %; NEUT ABS # 4.07 K/uL (1.4-6.5); PLATELET COUNT 226 K/uL (130-400); RED CELL DISTRIBUTION WIDTH CV 16.8 % (11.5-14.5)
[2017-09-29 07:33] LABS: PTT PATIENT 65.9 SECONDS (21.0-31.0)
[2017-09-29] MEDS: METOPROLOL TARTRATE 25 MG TAB PO SCH ×2 (07:53→22:01)
[2017-09-29] MEDS: RANITIDINE HCL 150 MG TAB PO SCH ×2 (07:54→22:01)
--- NOTE | 2017-09-29 09:24 | Cardiology Follow-Up ---
Subjective Subjective Date of Service: Sep 29, 2017. Pt evaluation today including: conversation w/ patient, conversation w/ family , physical exam, chart review, lab review, review of inpatient medication list Additional Details: The patient is a 72-year-old male who over [address] [facility] with what is described as a heart attack. He went on to have a cardiac catheterization at that time and was told that he had good collaterals and can be treated medically. No other information is available at this time. He is re-presented and has had ventricular ectopy on the heart monitor which is of concern. His echocardiogram indicates wall motion abnormalities in the inferior myocardium. This may have been the infarct site 25 years ago. The patient as part of an ischemic workup will undergo a cardiac catheterization today. Problem List Medical Problems: (1) Anemia Status: Acute (2) Atrial fibrillation with RVR Status: Acute (3) Dizziness Status: Acute Objective Vital Signs Last Vital Signs Documentation Date Time Temp Pulse Resp B/P (MAP) Pulse Ox O2 Delivery O2 Flow Rate FiO2 09/29/17 07:29 36.5 63 20 147/95 (112) 97 Room Air Physical Exam: General Appearance: no apparent distress ENT: normal ENT inspection Neck: no adenopathy, thyroid normal, no JVD Respiratory/Chest: lungs clear Cardiovascular: regular rate, rhythm, no gallop, no JVD, no murmur Abdomen: normal bowel sounds, non tender, soft, no organomegaly Extremities: normal range of motion, non-tender, normal inspection 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 As part of an ischemic workup we will proceed with cardiac catheterization. I have explained the risk benefit and intent of the procedure including the potential for catheter based intervention such as balloon angioplasty or intracoronary stents. The patient is willing to proceed. Medications: Current Inpatient Medications Medications (Trade) Dose Ordered Sig/Sherie Route Start Time Stop Time Status Last Admin Dose Admin Ioversol (Optiray 320) 100 ml UD PRN IV 09/27/17 23:15 10/01/17 23:14 Acetaminophen (Tylenol Tab) 650 mg Q4H PRN PO 09/28/17 00:00 10/28/17 00:00 Nitroglycerin (Nitrostat Tab) 0.4 mg UD PRN SL 09/28/17 00:00 10/28/17 00:00 Tramadol HCl (Ultram Tab) 25 mg Q6H PRN PO 09/28/17 00:00 10/28/17 00:00 Prochlorperazine Edisylate 5 mg/ Syringe 5 ml @ 5 mls/min Q6H PRN IV 09/28/17 00:00 10/28/17 00:00 Hydromorphone HCl (Dilaudid Inj) 0.5 mg Q3H PRN IV 09/28/17 00:00 10/12/17 00:00 Aspirin (Ecotrin Tab) 81 mg HS PO 09/28/17 21:00 10/28/17 20:59 09/28/17 20:24 81 MG Folic Acid (Folvite Tab) 1 mg DAILY PO 09/28/17 09:00 10/28/17 08:59 09/29/17 07:54 1 MG Metoprolol Tartrate (Lopressor Tab) 25 mg BID PO 09/28/17 21:00 10/28/17 20:59 09/29/17 07:53 25 MG Prednisone (PredniSONE TAB) 2.5 mg DAILY PO 09/28/17 09:00 10/28/17 08:59 09/29/17 07:54 2.5 MG Ranitidine HCl (zANTac TAB) 150 mg BID PO 09/28/17 09:00 10/28/17 08:59 09/29/17 07:54 150 MG Miscellaneous (Iv Fluids Completed) 1 ea PRN PRN N/A 09/28/17 00:45 09/28/18 00:44 Ipratropium [place] (Atrovent 0.02% 0.5MG/2.5ML Neb) 0.5 mg Q4H PRN INH 09/28/17 02:00 10/28/17 01:59 Levalbuterol (Xopenex 1.25MG/ 0.5ML Neb) 1.25 mg Q4H PRN INH 09/28/17 02:00 10/28/17 01:59 Amiodarone HCL/ Dextrose 200 ml @ 16.7 mls/hr [id number] IV 09/28/17 15:11 10/28/17 15:10 09/29/17 03:50 16.7 MLS/HR Heparin Sodium/ Dextrose 500 ml @ 27 mls/hr [id number] IV 09/28/17 09:30 10/28/17 09:29 09/29/17 03:50 27 MLS/HR Lab Results: Last 24 Hours Test 09/28/17 09:41 09/28/17 16:09 09/29/17 06:12 White Blood Count 4.69 K/uL 6.30 K/uL Red Blood Count 4.26 M/uL 4.37 M/uL Hemoglobin 10.3 g/dL 10.3 g/dL Hematocrit 33.3 % 34.3 % Mean Corpuscular Volume 78.2 fL 78.5 fL Mean Corpuscular Hemoglobin 24.2 pg 23.6 pg Mean Corpuscular Hemoglobin Concent 30.9 g/dl 30.0 g/dl Platelet Count 208 K/uL 226 K/uL Mean Platelet Volume 8.4 fL 8.9 fL Neutrophils (%) (Auto) 64.2 % 64.5 % Lymphocytes (%) (Auto) 19.4 % 17.5 % Monocytes (%) (Auto) 13.0 % 13.8 % Eosinophils (%) (Auto) 2.1 % 2.9 % Basophils (%) (Auto) 1.3 % 1.1 % Neutrophils # (Auto) 3.01 K/uL 4.07 K/uL Lymphocytes # (Auto) 0.91 K/uL 1.10 K/uL Monocytes # (Auto) 0.61 K/uL 0.87 K/uL Eosinophils # (Auto) 0.10 K/uL 0.18 K/uL Basophils # (Auto) 0.06 K/uL 0.07 K/uL RDW Standard Deviation 47.7 fL 48.0 fL RDW Coefficient of Variation 16.8 % 16.8 % Immature Granulocyte % (Auto) 0.0 % 0.2 % Immature Granulocyte # (Auto) 0.00 K/uL 0.01 K/uL Prothrombin Time 11.0 SECONDS Prothromb Time International Ratio 1.0 Activated Partial Thromboplast Time 25.9 SECONDS 47.7 SECONDS 65.9 SECONDS Partial Thromboplastin Ratio 1.0 1.8 2.5
--- NOTE | 2017-09-29 10:04 | Clinical Documentation Query ---
CLINICAL DOCUMENTATION QUERY Dr. GALVAN, In your clinical opinion is this patient being managed for: ( x ) Acute kidney failure, treated and resolved ( ) Not Agree ( ) Other explanation of clinical findings (Please Explain) ( ) Unable to determine (Please Define) ( ) Need to Discuss The medical record reflects the following clinical findings, treatment, and risk factors. Clinical Indicators: 72 yo male presenting with intermittent palpitations, lightheadedness. Initial Cr 1.32 which has trended down to 0.95. Treatment: NSS bolus in ER, cardiology consult, increased Lopressor dose, monitor PRP's Risk Factors: new onset arrhythmia, hypertension Please clarify and document your clinical opinion in the progress notes and discharge summary. Terms such as "probable", "suspected", "likely", "questionable", "possible", or "still to be ruled out" are acceptable. IF IN AGREEMENT, YOU MUST DOCUMENT ABOVE DIAGNOSTIC STATEMENT IN DAILY PROGRESS NOTES AND DISCHARGE SUMMARY. This document is not part of the patient's record. Thank You, Rianna Alvarado RN [phone]
[2017-09-29] MEDS ORDERED: DC ALL ANTICOAGULANTS ONE (10:15)
[2017-09-29] MEDS: SODIUM CHLORIDE 0.9% 1000ML 1,000 ML IV SCH ×2 (10:20→21:46)
[2017-09-29] MEDS ORDERED: ~HEPARIN DRIP~STOP ORDER ONE (10:30)
--- NOTE | 2017-09-29 13:12 | Progress Note ---
Progress Note Date of Service Sep 29, 2017. Progress Note Due to a prolonged complicated case in laborer [place] this AM patient's cath time pushed back. I spoke to the patient and his family asking if he would like to wait for cardiac cath to be done in AM by Dr. Robles or this PM by another transfer man. Pt states that he felt very comfortable with Dr. Robles and would prefer to wait for him. Will restart diet and make npo after midnight will also transition amio from IV to po. cont to monitor on tele
[2017-09-29] MEDS: AMIODARONE 200 MG TAB PO SCH ×2 (14:14→22:03)
[2017-09-29] MEDS ORDERED: HEPARIN 25000 UNIT/500 ML D5W ONE (15:35)
--- NOTE | 2017-09-29 16:12 | Progress Note ---
Internal Med Progress Note Date of Service: Sep 29, 2017. Provider Documentation: SUBJECTIVE: status remains unchanged no complain of chest discomfort or SOB no palpitation Cardiac cath was cancelled this AM for emergency case schedule for cath in AM OBJECTIVE: Vital Signs-as noted below Exam: General-very pleasant, no apparent distress Eyes-sclera nonicteric ENT-moist oral mucosa Neck-no JVD Lungs-clear to auscultate, no wheeze or rales Heart-irregular Abdomen-soft nontender Extremities-no lower extremity rash, no deformity, no lower extremity edema Neuro-alert awake oriented 3, no focal neurological deficit Lab data as noted below. ASSESSMENT & PLAN: PAROXYSMAL A FLUTTER /A. FIB: Presents with palpitation, dizziness spell EKG shows narrow complex tachycardia/flutter with heart rate of 150-180, on beta-brenda Lopressor 25 mg twice daily IV heparin weight-based protocol cardiology following closely appreciate input SYMPTOMATIC NONSUSTAINED VENTRICULAR TACHYCARDIA Possible secondary to ischemic cardiomyopathy Echo shows moderate to severe hypokinesis of the inferior and inferolateral rios. EF 45-50% Patient started on amiodarone need Cardiac cath /angiography scheduled for cath in AM NPO past midnight ordered by Cardiology HISTORY OF CORONARY ARTERY DISEASE -Presents with ischemic cardiomyopathy, arrhythmia related to ACS Appreciate input from cardiology Patient is continued with cardiac meds no angina symptom since admission cont IV heparin weight-based protocol Resting echo shows moderate to severe hypokinesis of the inferior inferior lateral wall -Scheduled for diagnostic and possible intervention cardiac cath tomorrow Patient is ordered n.p.o. past midnight ACUTE RENAL FAILURE resolved Creatinine was elevated to 1.3 on presentation Possible secondary to poor perfusion in the setting of cardiac arrhythmia Creatinine improved to 0.95 Estimated GFR 71.5 Patient will need close monitoring of renal function post cardiac cath to assess for contrast-induced nephropathy CODE STATUS: Full code DVT PROPHYLAXIS IV heparin DISPOSITION Expected to be discharged home when medically stable Will need PT OT evaluation prior to discharge Close follow-up with [facility] cardiology as an outpatient Vital Signs: Date Time Temp Pulse Resp B/P (MAP) Pulse Ox O2 Delivery O2 Flow Rate FiO2 09/30/17 12:45 36.4 65 18 144/79 (100) 95 Room Air 09/30/17 12:15 36.4 64 18 147/81 (103) 95 Room Air 09/30/17 12:00 36.4 65 18 138/83 (101) 95 Room Air 09/30/17 11:45 36.4 66 18 139/82 (101) 97 Room Air 09/30/17 11:30 36.4 66 18 154/104 (121) 95 Room Air 09/30/17 11:00 60 18 130/73 (92) Room Air 09/30/17 10:55 60 18 131/82 (98) 98 Room Air 09/30/17 10:40 62 18 127/76 (93) 98 Room Air 09/30/17 08:00 95 Room Air 09/30/17 04:32 36.6 86 22 136/76 (96) 95 Room Air 09/30/17 04:00 Room Air 09/30/17 00:00 Room Air 09/29/17 23:35 36.9 73 18 122/65 (84) 97 Room Air 09/29/17 21:34 75 20 149/81 (103) 09/29/17 20:06 36.6 76 20 112/65 (81) 97 Room Air 09/29/17 20:00 96 Room Air 09/29/17 15:55 36.9 67 18 145/84 (104) 95 Room Air 09/29/17 15:00 97 Room Air Lab Results: Results Past 24 Hours Test 09/29/17 21:59 09/30/17 05:39 09/30/17 05:44 Range/Units Activated Partial Thromboplast Time 46.1 94.9 21.0-31.0 SECONDS Partial Thromboplastin Ratio 1.8 3.7 Sodium Level 140 136-145 mmol/L Potassium Level 3.7 3.5-5.1 mmol/L Chloride Level 108 98-107 mmol/L Carbon Dioxide Level 26 21-32 mmol/L Anion Gap 6.0 3-11 mmol/L Blood Urea Nitrogen 16 7-18 mg/dl Creatinine 1.04 0.60-1.40 mg/dl Est Creatinine Clear Calc Drug Dose 65.3 ml/min Estimated GFR () 81.6 Estimated GFR (Non- 70.4 BUN/Creatinine Ratio 15.3 10-20 Random Glucose 116 70-99 mg/dl Calcium Level 8.3 8.5-10.1 mg/dl Magnesium Level 2.2 1.8-2.4 mg/dl White Blood Count 5.41 4.8-10.8 K/uL Red Blood Count 4.20 4.7-6.1 M/uL Hemoglobin 9.9 14.0-18.0 g/dL Hematocrit 33.0 42-52 % Mean Corpuscular Volume 78.6 80-100 fL Mean Corpuscular Hemoglobin 23.6 25-34 pg Mean Corpuscular Hemoglobin Concent 30.0 32-36 g/dl Platelet Count 203 130-400 K/uL Mean Platelet Volume 8.6 7.4-10.4 fL Neutrophils (%) (Auto) 63.7 % Lymphocytes (%) (Auto) 18.3 % Monocytes (%) (Auto) 12.4 % Eosinophils (%) (Auto) 4.1 % Basophils (%) (Auto) 1.3 % Neutrophils # (Auto) 3.45 1.4-6.5 K/uL Lymphocytes # (Auto) 0.99 1.2-3.4 K/uL Monocytes # (Auto) 0.67 0.11-0.59 K/uL Eosinophils # (Auto) 0.22 0-0.5 K/uL Basophils # (Auto) 0.07 0-0.2 K/uL RDW Standard Deviation 48.1 36.4-46.3 fL RDW Coefficient of Variation 16.7 11.5-14.5 % Immature Granulocyte % (Auto) 0.2 % Immature Granulocyte # (Auto) 0.01 0.00-0.02 K/uL
[2017-09-29] MEDS: ASPIRIN 81 MG ECTAB PO SCH (22:02)
[2017-09-29 22:29] LABS: CALCIUM 8.3 mg/dl (8.5-10.1); CREATININE 1.04 mg/dl (0.60-1.40); POTASSIUM 3.7 mmol/L (3.5-5.1)
[2017-09-29 22:38] LABS: PTT PATIENT 46.1 SECONDS (21.0-31.0)
[2017-09-29] MEDS ORDERED: HEPARIN IV BOLUS 3,000 UNIT in SYRINGE 0 ML IV ONE (23:45)
[2017-09-30] VITALS (12 sets, daily range): BP systolic 123–154; BP diastolic 76–104; PULSE 64–86; TEMP 36.4–36.6; O2SAT 95–97
[2017-09-30 06:09] LABS: BASO % 1.3 %; BASO ABS # 0.07 K/uL (0-0.2); EOS % 4.1 %; EOS ABS # 0.22 K/uL (0-0.5); HEMOGLOBIN 9.9 g/dL (14.0-18.0); IG# 0.01 K/uL (0.00-0.02); LYMPH % 18.3 %; LYMPH ABS # 0.99 K/uL (1.2-3.4); MEAN CELL VOLUME 78.6 fL (80-100); MEAN CORPUSCULAR HEMOGLOBIN 23.6 pg (25-34); MEAN PLATELET VOLUME 8.6 fL (7.4-10.4); MONO % 12.4 %; MONO ABS # 0.67 K/uL (0.11-0.59); NEUT % 63.7 %; NEUT ABS # 3.45 K/uL (1.4-6.5); PLATELET COUNT 203 K/uL (130-400); RED CELL DISTRIBUTION WIDTH CV 16.7 % (11.5-14.5); RED CELL DISTRIBUTION WIDTH SD 48.1 fL (36.4-46.3); WHITE BLOOD COUNT 5.41 K/uL (4.8-10.8)
[2017-09-30 06:37] LABS: PTT PATIENT 94.9 SECONDS (21.0-31.0)
[2017-09-30] MEDS: AMIODARONE 200 MG TAB PO SCH (07:24)
[2017-09-30] MEDS: METOPROLOL TARTRATE 25 MG TAB PO SCH (07:24)
[2017-09-30] MEDS: RANITIDINE HCL 150 MG TAB PO SCH (07:24)
[2017-09-30] MEDS: SODIUM CHLORIDE 0.9% 1000ML 1,000 ML IV SCH (07:28)
[2017-09-30] MEDS ORDERED: POTASSIUM CHLORIDE 10 MEQ TABCR PO ONE (08:30)
[2017-09-30] MEDS ORDERED: MIDAZOLAM HCL 1 MG/ML 2ML VIAL ONE (09:38)
[2017-09-30] MEDS ORDERED: FENTANYL CITRATE INJ 50 MCG/1 ML 2 ML VIAL ONE (09:39)
[2017-09-30] MEDS ORDERED: HEPARIN SOD (PORCINE) 1000 UNIT/ML 10 ML VIAL ONE (09:39)
[2017-09-30] MEDS ORDERED: NiCARDipine HCL INJ 2.5 MG/ML 10 ML AMP ONE (09:39)
[2017-09-30] MEDS ORDERED: LIDOCAINE HCL 1% 20 ML VIAL ONE (09:39)
[2017-09-30] MEDS ORDERED: NITROGLYCERIN/D5W 100MCG/ML 20ML SYR ONE (09:39)
[2017-09-30] MEDS ORDERED: ADENOSINE IV SOLN 3 MG/ML 20 ML VIAL ONE (10:15)
[2017-09-30] MEDS ORDERED: SODIUM CHLORIDE 0.9% 1000ML 1,000 ML IV SCH (10:25)
[2017-09-30] MEDS ORDERED: SODIUM CHLORIDE 0.9% 1000ML 250 ML IV PRN (10:25)
[2017-09-30] MEDS ORDERED: ACETAMINOPHEN 325 MG TAB PO PRN (10:30)
[2017-09-30] MEDS ORDERED: ATROPINE SULFATE 0.1 MG/ML 5ML SYR IV PRN (10:30)
[2017-09-30] MEDS ORDERED: ONDANSETRON INJ 2 MG/ML 2 ML VIAL IV PRN (10:30)
--- NOTE | 2017-09-30 10:50 | Cardiac Catheterization ---
Procedure Note Procedure Date Sep 30, 2017. Pre-Procedure Diagnosis Cardiomyopathy, Cardiothoracic Symptom AUC Score 7 Post-Procedure Diagnosis Severe CAD Procedure(s) Performed Fractional Flow Opal Third Helper Christiano Audio Recording Engineer(s) Margie Estimated Blood Loss 10 Medication(s) Fentanyl, Heparin, Nitroglycerin, Versed, Lidocaine 1% Summary of Findings For full details of patient's coronary angiography please see cath report dictated by Dr. Robles. Briefly patient found to have severe circumflex disease with intermediate proximal LAD and mid RCA disease. Decision to proceed with FFR. Procedure: EBU 3.5 guide used to cannulated LM FFR wire placed into distal LAD iFR 0.80 Post procedure no coronary complications. JR4 guide used to cannulate RCA FFR wire placed into distal RCA iFR 0.93 Summary: 1. Severe 2 vessel coronary artery disease -- 90% distal circumflex -- 70% proximal LAD (iFR 0.80) -- 50% mid RCA (iFR 0.93) Recommendations: - Proximal LAD is heavily calcified potentially requiring atherectomy for intervention. In the setting of cardiomyopathy, recurrent VT recommend evaluation by tertiary center for complex PCI or bypass surgery. Hemodynamics Rest Ao: 139/66/96 Final Ao: 128/51/86 LV: -- Recommendations PCI without planned CABG, CABG Specimens None Radiation Exposure (mGy) 2902 Contrast (mls) 214 Fluids (cc crystalloids) 95 Drains None Anesthesia Moderate Procedural Complication(s) None Disposition PCU ACC Data Cardiac Status Clinical evaluation leading to the procedure CAD Presntation: Non STEMI Anginal Classification: CCS III Heart Failure: No, NYHA Class: CCS I Cardiogenic Shock w/in 24Hrs: No Cardiac Arrest w/in 24Hrs: No Imaging studies past 6 months: Yes Stress studies past 6 months: No Closure Device Percutaneous Entry Location: Radial Closure Device: Radial Band PCI Indication: Immediate PCI for STEMI Intraprocedure Events Significant Dissection: No Perforation: No
--- NOTE | 2017-09-30 11:09 | Cardiac Catheterization ---
Procedure Note Procedure Date Sep 30, 2017. Pre-Procedure Diagnosis Arrhythmia AUC Score 9 Post-Procedure Diagnosis Severe CAD Procedure(s) Performed Coronary Angiography, Left Heart Cath, LV Angiography Product Marketer Dr. Robles Bartender(s) None Estimated Blood Loss None Medication(s) Heparin, Versed, Lidocaine 1% Summary of Findings See dictated report Hemodynamics Rest Ao: 118/75 Final Ao: 139/66 LV: 138/18 Recommendations management recommendations (We will discuss with the [facility] interventionalists regarding possible high risk intervention versus CABG) Specimens None Radiation Exposure (mGy) 1846 Contrast (mls) 144 Fluids (cc crystalloids) 53 Procedural Complication(s) None Disposition PCU ACC Data Cardiac Status Clinical evaluation leading to the procedure CAD Presntation: Stable angina Anginal Classification: CCS II Heart Failure: No Cardiogenic Shock w/in 24Hrs: No Cardiac Arrest w/in 24Hrs: No Imaging studies past 6 months: Yes Stress studies past 6 months: No Coronary Anatomy Dominant: Right Left Main (% Stenosis): Normal LAD (% Stenosis): Proximal (95), Mid (95) OM2 (% Stenosis): Proximal (98) RCA (% Stenosis): Mid (60) Left Ventricular Angiography EF (%): 50 Mitral Regurgitation: None Diagnostic Status: Urgent Closure Device Percutaneous Entry Location: Radial Closure Device: Radial Band Recommendations: PCI without planned CABG
--- NOTE | 2017-09-30 11:19 | Procedure Note ---
Cardiac Cath Report Procedure: 1. Left heart catheterization 2. Urinary angiography 3. Left ventriculography History: This is a 72-year-old male patient who presented with both atrial arrhythmias and nonsustained ventricular tachycardia. He has a remote history of coronary artery disease dating back 25 years when he had a heart catheterization at L2 in the hospital with what he describes following a heart attack. He was told at that time he would be treated medically. His echocardiogram resting reveals wall motion abnormalities in the inferior myocardium. As part of an ischemic workup for his arrhythmias we will proceed with cardiac catheterization. Procedure summary: After informed consent was obtained the patient was taken to the cardiac catheterization lab where he was prepped and draped in the usual manner for right transradial approach. Preformed 5 [place] diagnostic catheters were utilized for the coronary angiograms. A 5 [place] pigtail catheter was utilized for the left heart pressures and left ventriculogram. Following the procedure the patient underwent FFR on the LAD and right coronary arteries and then was transferred back to the holding area the Utilization Management Manager in stable condition. Left ventriculogram: The left ventricle was of normal size. There is mild hypokinesis of the inferior basilar myocardium with the estimated left ventricular ejection fraction being around 50%. The LVEDP is 18. The mitral valve is competent. The aortic root and ascending aorta have normal morphology. Coronary angiography: Selective injections of the right coronary artery reveal diffuse disease in the proximal and mid segment with the most significant narrowing being in the mid segment at around 60%. Selective injections of the left coronary artery revealed the left main trunk to be patent. The left circumflex artery consists of 2 large marginal branches. The second marginal branch in its proximal segment has a 98% narrowing. The LAD extends to the apex of the heart. The LAD gives off to small to medium sized diagonal branches. The proximal and midportion of the LAD are calcified with diffuse disease. The most significant narrowing appears to be in the proximal portion of the LAD at 70%. Summary: The patient has significant two-vessel coronary artery disease with the circumflex having the second marginal being subtotaled in the LAD having calcified diffuse disease in the proximal segment which is also most likely significant. The right coronary artery has disease in its proximal and mid segment which appears to be nonobstructive. Left ventricular function is preserved Recommendations: The patient will have an FFR completed on the LAD and right coronary arteries. Depending on the significance of those findings will determine if the patient will undergo multivessel intervention or coronary artery bypass surgery.
--- NOTE | 2017-09-30 11:29 | Pre Sedation Assessment ---
Pre Sedation Assessment General Date of Sedation: Sep 30, 2017. Vital Signs Past 12 Hours Date Time Temp Pulse Resp B/P (MAP) Pulse Ox O2 Delivery O2 Flow Rate FiO2 09/30/17 08:00 95 Room Air 09/30/17 04:32 36.6 86 22 136/76 (96) 95 Room Air 09/30/17 04:00 Room Air 09/30/17 00:00 Room Air 09/29/17 23:35 36.9 73 18 122/65 (84) 97 Room Air Review Cardiovascular: regular rate, rhythm Lungs: lungs clear Pre-Sedation Airway Assessment Smoking Status: Former Smoker Hx of Sleep Apnea: No Hx of difficult intubation: No Short Thick Neck: No Mallampati Classification: Class II ASA Classification: Class III NPO Status Date of Last Intake of Fluids: Sep 29, 2017 Time of Last Intake of Fluids: 0000 Date of Last Intake of Solids: Sep 28, 2017 Time of Last Intake of Solids: 2100 Notes The planned sedation has been discussed with the patient. Informed Consent was obtained. I have identified the patient, determined the appropriateness of sedation and have assessed the patient immediately prior to the procedure. All medicine(s) and interventions are by my order.
--- NOTE | 2017-09-30 11:30 | Post Sedation Assessment ---
Post Sedation Assessment General Date of Sedation Sep 30, 2017. Vital Signs: Vital Signs Past 12 Hours Date Time Temp Pulse Resp B/P (MAP) Pulse Ox O2 Delivery O2 Flow Rate FiO2 09/30/17 08:00 95 Room Air 09/30/17 04:32 36.6 86 22 136/76 (96) 95 Room Air 09/30/17 04:00 Room Air 09/30/17 00:00 Room Air 09/29/17 23:35 36.9 73 18 122/65 (84) 97 Room Air Post Procedure Recovery Score Activity: (2) Moves 4 extremities * Respiration: (2) Deep breath/cough Circulation: (2) +/-20% PreAnes Value Consciousness: (2) Fully Awake Oxygen Saturation: (2) > 92% On Room Air Post Anesthesia Score: 10 Discharge Sedation Level of Care: Fast Track Phase II Post Sedation Plan On clinical assessment, the patient appears to have tolerated the sedation without complications. Patient is recovering as anticipated. Patient will continue to be monitored by nursing and may be discharged from the lab head when sedation discharge criteria are met per below protocol. Upon Completions of procedure and additional 15 minutes continue every 5 minute vital signs and the P.A.R. score; then discharge to a Phase I or Fast Track to Phase II per the following guidelines: * Discharge Patient to appropriate Phase II area if PAR is 8 or greater or return to pre- procedure baseline. The post - procedure orders will be as directed. * If PAR score is less than 8 or not return to pre-procedure baseline then patient will follow Phase I monitoring till PAR is reached for Phase II. The Phase I may be done in procedure room or may call to secure a Phase I area. * If naloxone or flumazenil are used for reversal, hold in Phase I for an additional 60 -120 minutes before discharge to Phase II. Please call the Sedation Physician to re-evaluate and complete post-note for discharge to Phase II area. Do NOT discharge from procedure sedation or Phase 1 until post- sedation evaluation note is complete by procedure /sedation MD Sedation Discharge Instructions to be given to the patient at discharge to home.
[2017-09-30] MEDS ORDERED: LPR25 PO (12:58)
[2017-09-30] MEDS ORDERED: CRD200 PO (12:58)
--- NOTE | 2017-09-30 13:03 | Cardiology Follow-Up ---
Subjective Subjective Date of Service: Sep 30, 2017. Pt evaluation today including: conversation w/ patient, physical exam, chart review, lab review, review of studies, review of inpatient medication list Additional Details: Pt seen and examined prior to and after cardiac cath. Remains without complaint. Denies cp, sob, palpitations, lightheadedness or dizziness. Tele reviewed: sinus rhythm without recurrence of V-tach or sustained atrial flutter. Problem List Medical Problems: (1) Anemia Status: Acute (2) Atrial fibrillation with RVR Status: Acute (3) Dizziness Status: Acute Review of Systems Respiratory: No see HPI, No cough, No sputum, No wheezing, No shortness of breath, No dyspnea on exertion, No dyspnea at rest, No hemoptysis, No problem reported Cardiac: No see HPI, No chest pain, No orthopnea, No PND, No edema, No claudication, No palpitations, No problem reported Objective Vital Signs Last Vital Signs Documentation Date Time Temp Pulse Resp B/P (MAP) Pulse Ox O2 Delivery O2 Flow Rate FiO2 09/30/17 12:45 36.4 65 18 144/79 (100) 95 Room Air Physical Exam: General Appearance: WD/WN, no apparent distress Eyes: bilateral eyes normal inspection, bilateral eyes PERRL, bilateral eyes EOMI ENT: normal ENT inspection, hearing grossly normal, pharynx normal Neck: supple, no adenopathy, thyroid normal, no JVD, no carotid bruits, trachea midline Respiratory/Chest: chest non-tender, lungs clear, normal breath sounds, no respiratory distress, no accessory muscle use Cardiovascular: regular rate, rhythm, no edema, no JVD, no murmur, + gallop/S4 Abdomen: normal bowel sounds, non tender, soft, no organomegaly Extremities: normal range of motion, non-tender, normal inspection, no pedal edema, no calf tenderness Neurologic/Psychiatric: punch finisher II-XII nml as tested, no motor/sensory deficits, alert, normal mood/affect, oriented x 3 Skin: normal color, warm/dry, no rash Lymphatic: no adenopathy Assessment and Plan 1. NSVT no recurrence since started on amiodarone will decrease to 400mg bid now cont metoprolol likely ischemic in origin 2. CAD multivessel with a severely calcified proximal LAD lesion and significant LCx lesion RCA lesion was not hemodynamically significant by FFR case was discussed with interventional cardiology and cardiothoracic surgery at [facility] decision was made that patient would benefit more from CABG accepted for transfer awaiting bed assignment 3. Paroxysmal atrial flutter no further sustained runs since amio started was initially on heparin gtt but since has remained in sinus, will not restart at this time decision for need of assistant branch manager anticoagulation will be made post-operatively ok to transfer to [facility] once bed and ground transport available
--- NOTE | 2017-09-30 13:10 | Discharge Summary ---
Discharge Summary Date of Service Sep 30, 2017. Discharge Summary Admission Date: Sep 28, 2017 at 11:12 Discharge Date: Sep 30, 2017 Discharge Disposition: Acute care facility ([facility] ) Principal Diagnosis: SEVERE MULTIVESSEL CORONARY ARTERY DISEASE /SYMPTOMATIC VENTRICULAR TACHYCARDIA /ATRIAL FLUTTER Procedures: Severe 2 vessel coronary artery disease -- 90% distal circumflex -- 70% proximal LAD (iFR 0.80) -- 50% mid RCA (iFR 0.93) Consultations: [facility] Medication Reconciliation New Medications: Amiodarone HCl (Amiodarone HCl) 200 Mg Tab 400 MG PO TID for 30 Days, #180 TAB Metoprolol Tartrate (Lopressor) 25 Mg Tab 25 MG PO BID for 30 Days, #60 TAB Continued Medications: Acetaminophen (Tylenol Arthritis Ext Rel) 650 Mg Cplt 1300 MG PO BID PRN for Pain, CAP Aspirin (Aspirin 81) 81 Mg Tab 81 MG PO DAILYBB Cholecalciferol (Vitamin D 1000 Unit) 1,000 Unit Cap 1000 INTER.UNIT PO DAILY, CAP Folic Acid (Folic Acid) 1 Mg Tab 1 MG PO DAILY Nitroglycerin (Nitrostat) 0.4 Mg Tab 0.4 MG UT PRN, BTL Ranitidine (Zantac) 150 Mg Tab 150 MG PO BID, 0 Refills Vitamin E (E-200) 200 Unit Cap 200 UNITS PO DAILY [Proair 108MCG/Act] () 2 PUFF INH BID PRN for SOB/Wheezing Discontinued Medications: Celecoxib (CeleBREX) 200 Mg Cap 200 MG PO DAILY, CAP Methotrexate (Methotrexate) 2.5 Mg Tab 15 MG PO WK, 0 Refills Metoprolol Tartrate (Lopressor) (Lopressor) 25 Mg Tab 12.5 MG PO BID, 0 Refills Prednisone (Prednisone) 2.5 Mg Tab 2.5 MG PO DAILY, TAB Tramadol (Ultram) 50 Mg Tab 50 MG PO Q6 PRN for Pain, TAB Admission Information HPI (per Admitting provider): DATE OF ADMISSION: 09/27/2017 PRIMARY CARE PHYSICIAN: Dr. Castro. CHIEF COMPLAINT: Dizziness, palpitations. HISTORY OF PRESENT ILLNESS: History obtained from patient and records. Medical history significant for CAD, hypertension, steroid-dependent rheumatoid arthritis, past tobacco abuse, chronic anemia (recent hemoglobin 13 from November 2015). Recent confinement last 2011 for C. diff colitis. Two days history of palpitations, dizziness described as lightheadedness, no headache, no chest pain, no shortness of breath. Left-sided back pain which he has had for a few weeks after a fall on his left side. Patient complaint with home meds, denies unusual stress at home or inordinate caffeine intake. Patient brought to the Emergency Room. Patient noted to be tachycardic upon arrival in the ER, possible AFib as per ER provider. Patient's heart rate settled down after IV fluids and IV Lopressor. Patient also given Toprol-XL at the ER. Patient currently comfortable. MEDICAL HISTORY: As above. History of CAD not requiring intervention about 20 years ago. Cardiac catheterization was done at [facility]. Previous meat carver was Dr. Hampton at [place]. Last follow up was about 20 years ago as per patient. Colonoscopy from 2016 showed diverticulosis, 2009 upper EGD showed gastritis. SURGERIES: Carpal tunnel surgery, back surgery. HOME MEDICATIONS: Include aspirin, Tylenol, Celebrex, vitamin D, folic acid, methotrexate, Lopressor, Nitrostat, ProAir, prednisone, Ultram, Zantac, vitamin B, vitamin E. ALLERGIES: No known drug allergies. FAMILY HISTORY: Heart disease. PERSONAL AND SOCIAL HISTORY: Past tobacco use. No chronic intake of alcoholic beverages. 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 REVIEW OF SYSTEMS: As per HPI. All 10 systems reviewed, all other ROS negative. PHYSICAL EXAMINATION: VITAL SIGNS: Blood pressure was noted to be 147/106, later 130/80, pulse rate initially 137 later 78, RR 18, temperature 36.7, sats 98 on RA. GENERAL: Very pleasant, no respiratory distress. Slightly hard of hearing. SKIN: Pallor, warm. HEENT: Alopecia. Pale palpebral conjunctiva. No ptosis. Dry mucosa. NECK: Short, supple. CHEST: Clear to auscultation. Minimal chest wall tenderness left. HEART: RRR, no murmur ABD : Some distention, nontender RECTAL: Intact sphincter, yellow stool, heme negative. EXTREMITIES: No edema. No tenderness, no other gross deformities. . NEUROLOGIC: Coherent. No gross focality except for some hearing impairment on the right ear. Physical Exam (per Admitting): REVIEW OF SYSTEMS: As per HPI. All 10 systems reviewed, all other ROS negative. PHYSICAL EXAMINATION: VITAL SIGNS: Blood pressure was noted to be 147/106, later 130/80, pulse rate initially 137 later 78, RR 18, temperature 36.7, sats 98 on RA. GENERAL: Very pleasant, no respiratory distress. Slightly hard of hearing. SKIN: Pallor, warm. HEENT: Alopecia. Pale palpebral conjunctiva. No ptosis. Dry mucosa. NECK: Short, supple. CHEST: Clear to auscultation. Minimal chest wall tenderness left. HEART: RRR, no murmur ABD : Some distention, nontender RECTAL: Intact sphincter, yellow stool, heme negative. EXTREMITIES: No edema. No tenderness, no other gross deformities. . NEUROLOGIC: Coherent. No gross focality except for some hearing impairment on the right ear. Hospital Course Patient underwent cardiac cath today Shows diffuse coronary artery disease with multivessel occlusion Transferred to [facility] in the for cardiac intervention Patient denies of any chest pain No shortness of breath No palpitation or dizzy spell PHYSICAL EXAM Exam: General-very pleasant, no apparent distress Eyes-sclera nonicteric ENT-moist oral mucosa Neck-no JVD Lungs-clear to auscultate, no wheeze or rales Heart-irregular Abdomen-soft nontender Extremities-no lower extremity rash, no deformity, no lower extremity edema Neuro-alert awake oriented 3, no focal neurological deficit SEVERE TWO-VESSEL CORONARY ARTERY DISEASE: Cardiac cath showed 80% distal circumflex 70% proximal LAD and 50% mid RCA stenosis With severe atherosclerotic coronary artery disease Unable to do PTCA Patient will need high risk cardiac intervention//CABG 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 FIB: Possible secondary to severe coronary artery disease Presents with palpitation, dizziness spell EKG shows narrow complex tachycardia/flutter with heart rate of 150-180, Continue on beta-brenda Lopressor 25 mg twice daily IV heparin weight-based protocol cardiology following closely Being transferred to tertiary care for further cardiac intervention SYMPTOMATIC NONSUSTAINED VENTRICULAR TACHYCARDIA Possible secondary to ischemic cardiomyopathy/severe CAD Echo shows moderate to severe hypokinesis of the inferior and inferolateral rios. EF 45-50% Patient started on amiodarone Report of cardiac cath as above ACUTE RENAL FAILURE resolved Creatinine was elevated to 1.3 on presentation Possible secondary to poor perfusion in the setting of cardiac arrhythmia Creatinine improved to 0.95 Estimated GFR 71.5 Patient will need close monitoring of renal function post cardiac cath to assess for contrast-induced nephropathy CODE STATUS: Full code DVT PROPHYLAXIS IV heparin DISPOSITION Transferred to [facility] in [place] via ground today Accepting director of annual giving Dr. Farideh Morel Total time spent on discharge = 40 MINS This includes examination of the patient, discharge planning, medication reconciliation, and communication with other providers. Discharge Instructions Discharge Instructions Date of Service Sep 30, 2017. Admission Reason for Admission: Tachycardia Discharge Discharge Diagnosis / Problem: SEVERE MULTIVESSEL CORONARY ARTERY DISEASE / SYMPTOMATIC VENTRICULAR TACHYCARDIA /ATRIAL FLUTTER Discharge Goals Goal(s): Increase independence, Improve disease control, Diagnostic testing, Therapeutic intervention Activity Recommendations Activity Limitations: per Instructions/Follow-up section . Instructions / Follow-Up Instructions / Follow-Up PATIENT IS TRANSFERRED TO [facility] FOR HIGH RISK CARDIAC INTERVENTION PROCEDURE-HIGH RISK PCI WITH LAD ATHERECTOMY VS CABG PT IS ACCEPTED BY INTERVENTIONAL CARDIOTHORACIC SURGERY AT [facility] STABLE TO BE TRANSFERRED BY GROUND WITH ACLS Current Hospital Diet Patient's current hospital diet: AHA Diet (Heart Healthy) Discharge Diet Recommended Diet: AHA Diet (Heart Healthy) Pending Studies Studies pending at discharge: no Laboratory Results Hemoglobin A1c Test 09/28/17 05:18 Range/Units Estimated Average Glucose 120 mg/dl Hemoglobin A1c 5.8 H 4.5-5.6 % Medical Emergencies . Who to Call and When: Medical Emergencies: If at any time you feel your situation is an emergency, please call 911 immediately. . Non-Emergent Contact Non-Emergency issues call your: Primary Care Provider . . "Provider Documentation" section prepared by Melany Mccann. .
[2017-09-30] MEDS ORDERED: NURSING VERBAL MED ORDER ONE (13:45)
[2017-09-30] MEDS ORDERED: AMIODARONE 200 MG TAB PO SCH (21:00)
== END 2017-09-30 18:47 | disposition short-term general hospital (02) | DRG 287 ==
LOC: C.EDB 20:13 → C.2T 23:39 → UNDOADMOB 23:50 → C.2T 23:50 → ENRESERV 09-28 00:18 → OBSVTOIN 09-28 11:12
PROVIDERS: ADMIT Internal Medicine; ATTEND Hospitalist
PROC: 4A033BC Measurement of Arterial Pressure, Coronary, Percutaneous Approach (ICD-10-PCS; 2017-09-30)
PROC: B2100ZZ Fluoroscopy of Single Coronary Artery using High Osmolar Contrast (ICD-10-PCS; principal; 2017-09-30 09:46)
PROC: B2150ZZ Fluoroscopy of Left Heart using High Osmolar Contrast (ICD-10-PCS; principal; 2017-09-30 09:46)
PROC: 4A023N7 Measurement of Cardiac Sampling and Pressure, Left Heart, Percutaneous Approach (ICD-10-PCS; principal; 2017-09-30 09:46)
DX: I47.2 Ventricular tachycardia (principal); N17.9 Acute kidney failure, unspecified; I48.92 Unspecified atrial flutter; D64.9 Anemia, unspecified; K21.9 Gastro-esophageal reflux disease without esophagitis; I25.10 Atherosclerotic heart disease of native coronary artery without angina pectoris; M06.9 Rheumatoid arthritis, unspecified; F17.200 Nicotine dependence, unspecified, uncomplicated; Z79.82 Long term (current) use of aspirin; Z79.52 Long term (current) use of systemic steroids

== ENCOUNTER 2019-02-27 08:46 | Inpatient (IN) ==
--- NOTE | 2019-02-11 21:09 | PAT Medication Instructions ---
Medication Instructions Date of Service February 11, 2019 Home Medications acetaminophen [Tylenol Arthritis Pain] 650 mg PO Q12H PRN aspirin 81 mg PO QAM celecoxib [Celebrex] 200 mg PO QAM coQ10 (ubiquinol) 200 mg PO QPM folic acid 1 mg PO BID methotrexate sodium 15 mg PO WK metoprolol tartrate 12.5 mg PO BID nitroglycerin 0.4 mg SUBLINGUAL UD PRN ranitidine HCl 150 mg PO BID rosuvastatin 20 mg PO QPM tofacitinib [Xeljanz XR] 11 mg PO QAM tramadol 50 mg PO Q4H PRN vitamin B complex 1 tab PO QPM vitamin E 400 unit PO QPM ASK your surgeon for instructions celecoxib [Celebrex] 200 mg PO QAM ASK your prescriber and surgeon methotrexate sodium 15 mg PO WK tofacitinib [Xeljanz XR] 11 mg PO QAM STOP taking 2 weeks before surgery coQ10 (ubiquinol) 200 mg PO QPM vitamin E 400 unit PO QPM DO NOT take the morning of surgery folic acid 1 mg PO BID Take morning of surgery With a small sip of water, OTHERWISE NOTHING TO EAT OR DRINK AFTER MIDNIGHT: acetaminophen [Tylenol Arthritis Pain] 650 mg PO Q12H PRN (if needed, may be taken up to four hours before surgery) aspirin 81 mg PO QAM metoprolol tartrate 12.5 mg PO BID nitroglycerin 0.4 mg SUBLINGUAL UD PRN (if needed) ranitidine HCl 150 mg PO BID tramadol 50 mg PO Q4H PRN (if needed, may be taken up to four hours before surgery) Take evening before surgery acetaminophen [Tylenol Arthritis Pain] 650 mg PO Q12H PRN (if needed) folic acid 1 mg PO BID metoprolol tartrate 12.5 mg PO BID nitroglycerin 0.4 mg SUBLINGUAL UD PRN (if needed) ranitidine HCl 150 mg PO BID rosuvastatin 20 mg PO QPM tramadol 50 mg PO Q4H PRN (if needed) vitamin B complex 1 tab PO QPM Other Notes If you have any questions please call us at [phone] or [phone] or [phone] or [phone]
--- NOTE | 2019-02-12 12:31 | Anesthesiology Consultation ---
Date of Service February 12, 2019 Assessment & Plan (1) Encounter for pre-operative examination: Surgeon-ordered cardio clearance done 01/18 ([facility], scanned). Provider ordered pre-op ischemic workup. Clearance is pending stress test done 02/12. Chart Review Chart Review: Acceptable Risk for Surgery (pending stress test results (done 02/12) and final cardio clearance) and Patient seen in Pre Admission Testing Teaching & Discussion Instructed NPO after midnight before surgery, except medications with 15 cc of water. Medication instructions provided according to the PAT guidelines. History Surgery Operation Date: 02/23/19 07:45 Proposed Procedures p L4-S1 Hardware Removal, L2-L4 Decompression and Fusion, Spinal Cord Monitoring - Pedro Fu, Height/Weight Height: 5 ft 8 in Weight: 85.2 kg Allergies Allergy/AdvReac Type Severity Reaction Status Date / Time adalimumab [From Humira] Allergy Intermediate WAS NOT Verified 01/25/19 12:21 EFFECTED FOR TREATMENT Medications Home Medications Medication Instructions Recorded Confirmed Last Taken acetaminophen [Tylenol Arthritis 650 mg PO Q12H PRN 01/25/19 01/25/19 Unknown Pain] aspirin 81 mg PO QAM 01/25/19 01/25/19 Unknown celecoxib [Celebrex] 200 mg PO QAM 01/25/19 01/25/19 Unknown coQ10 (ubiquinol) 200 mg PO QPM 01/25/19 01/25/19 Unknown folic acid 1 mg PO BID 01/25/19 01/25/19 Unknown methotrexate sodium 15 mg PO WK 01/25/19 01/25/19 Unknown metoprolol tartrate 12.5 mg PO BID 01/25/19 01/25/19 Unknown nitroglycerin 0.4 mg SUBLINGUAL UD PRN 01/25/19 01/25/19 Unknown ranitidine HCl 150 mg PO BID 01/25/19 01/25/19 Unknown rosuvastatin 20 mg PO QPM 01/25/19 01/25/19 Unknown tofacitinib [Xeljanz XR] 11 mg PO QAM 01/25/19 01/25/19 Unknown tramadol 50 mg PO Q4H PRN 01/25/19 01/25/19 Unknown vitamin B complex 1 tab PO QPM 01/25/19 01/25/19 Unknown vitamin E 400 unit PO QPM 01/25/19 01/25/19 Unknown Past Medical History Medical History Atrial fibrillation s/p Maze procedure/pulm vein isolation/BOLIVAR clip 09/2017. No known recurrence of Afib since. BPH (benign prostatic hyperplasia) CAD (coronary artery disease) s/p CABG 09/2017 Chronic obstructive pulmonary disease GERD (gastroesophageal reflux disease) Gout History of ischemic cardiomyopathy 2/2 sustained v. tach. Interval improvement in EF. Hyperlipidemia Hypertension Myocardial Infarction 1986 Osteoarthritis Rheumatoid arthritis Skin cancer EARS AND FACE (PRE-CANCEROUS TISSUE REMOVED) Spinal stenosis Exercise / Class Metabolic Activity II 4-5 Yardwork/Stairs/Walk up hill (Active chopping wood, yardwork without chest pain, occasional SOB, pt feels r/t COPD) Past Family History Family History Brother Family history of diabetes mellitus Grandmother (Maternal) Family history of diabetes mellitus Past Surgical History Surgical History Fusion of spine History of cardiac cath 1986 NO STENTS 2017 NO STENTS History of carpal tunnel release History of coronary artery bypass graft 09/2017 X 3 VESSELS (GARCIA-LAD, SVG-PDA, SVG-OM2) AT [facility] History of tonsillectomy History of tooth extraction Past Anesthesia History No Hx of Anesthesia Complications and No Family Hx of Anesthesia Complications (Pt's aunt "from anesthesia" no further details known) H/o post-op ileus after CABG. History of PONV No Hx of PONV and No Hx of Motion Sickness Social History Smoking Status: Former smoker tobacco type: cigarettes Do You Dip or Chew Tobacco: No Smoking End Date: QUIT AT AGE 42 Hx Alcohol Use: No Hx Substance Use: No substance use type: does not use Review of Systems Pt denies any recent chest pain, shortness of breath, palpitations, cough, fever or URI. Physical Exam Vital Signs BP: 110/67 P: 79bpm SPO2: 97% RA T: 98.0 R: 16 ENMT Mouth: + edentulous Thyromental Distance: > or= 3.5 Finger Breadths (4) Mallampati Class: II Neck + short neck; neck extension not limited Respiratory normal respiratory effort Auscultation: lungs clear to auscultation bilaterally Cardiovascular Rate/Rhythm: regular rate and regular rhythm Heart Sounds: no murmur Vessels: no carotid bruit Extremities: no edema Testing Laboratory Results 02/12/19 13:35 02/12/19 13:35 PT 11.3 Seconds (9.0-12.0) 02/12/19 13:35 INR 1.1 (0.9-1.1) 02/12/19 13:35 APTT 24.5 Seconds (21.0-31.0) 02/12/19 13:35 Urine Color Dark Yellow 02/12/19 Unknown Urine Appearance Clear (Clear) 02/12/19 Unknown Urine pH 5.0 (4.5-7.5) 02/12/19 Unknown Ur Specific [place] 1.024 (1.000-1.030) 02/12/19 Unknown Urine Protein Negative (Negative) 02/12/19 Unknown Urine Glucose (UA) Negative (Negative) 02/12/19 Unknown Urine Ketones Negative (Negative) 02/12/19 Unknown Urine Nitrite Negative (Negative) 02/12/19 Unknown Ur Leukocyte Esterase Negative (Negative) 02/12/19 Unknown Blood Type O Positive 02/12/19 13:35 Antibody Screen NEGATIVE 02/12/19 13:35 Electrocardiogram Date: 01/18/19 Findings: + NSR @ (73BPM) Nonspecific T wave abnormality in inferior leads. Chest X-Ray Date: 02/12/19 FINDINGS: Cardiac silhouette is enlarged, unchanged. Left atrial exclusion device. Prior median sternotomy. Large hiatal hernia. No pneumothorax, pleural effusion or overt pulmonary edema. Minimal subsegmental atelectasis/scarring. Degenerative changes of the shoulders and spine. IMPRESSION: 1. Cardiomegaly without acute process. 2. Large hiatal hernia. Echocardiogram Date: 01/25/19 EF: 54% LV wall thickness is normal. The posterior wall is hypokinetic at the base and mid level. The inferoseptum is hypokinetic at the basal level. The regional left ventricular wall motion is otherwise normal. Mild mitral regurgitation is present. Left atrium is normal size. PASP estimated at 32 mmHg. The aortic root and proximal ascending aorta are mildly enlarged. Compared to the prior study of 12/15/2017, the estimated pulmonary artery systolic pressure is slightly improved. Aortic root and proximal ascending aorta diameters are stable without significant interval change. The LV wall motion is relatively unchanged compared to the November 2017 study. Cervical Spine Date: 02/12/19 Findings: less than 5mm instability FINDINGS: Unchanged 2 mm retrolisthesis C4 on C5 on neutral, flexion and extension. 2 mm anterolisthesis C3 on C4 with flexion. Predental interval appears normal. Alignment is otherwise satisfactory. Severe disc space narrowing at C4-C5 and C5-C6 with moderate disc space narrowing at C6-C7. Moderate multilevel facet arthrosis. No acute fracture. No prevertebral soft tissue swelling. No opaque foreign body. Prior median sternotomy. IMPRESSION: 1. No acute fracture. 2. Degenerative changes as above. 3. 2 mm anterolisthesis of C3 on C4 with flexion resolves with neutral and ex tension positioning suspicious for instability. Correlate clinically. *Clinically, pt has full ROM with flexion and extension, demonstrated at PAT.
[2019-02-12 14:16] LABS: Appearance Urine Clear (Clear); Bilirubin Urine Negative (Negative); Blood Urine Negative (Negative); Color Urine Dark Yellow; Glucose Urine UA Negative (Negative); Ketones Urine Negative (Negative); Leukocyte Esterase Urine Negative (Negative); Nitrite Urine Negative (Negative); Protein Urine Negative (Negative); Specific Gravity Urine 1.024 (1.000-1.030); Urobilinogen Urine Negative (Negative)
[2019-02-12 14:17] LABS: Basophils # (auto) 0.04 K/uL (0-0.2); Basophils % (auto) 0.7 %; Eosinophils # (auto) 0.14 K/uL (0-0.5); Eosinophils % (auto) 2.5 %; Hematocrit (blood only) 39.5 % (42-52); Hemoglobin 13.6 g/dL (14.0-18.0); Immature Granulocytes # (auto) 0.01 K/uL (0.00-0.02); Immature Granulocytes % (auto) 0.2 %; Lymphocytes # (auto) 1.32 K/uL (1.2-3.4); Lymphocytes % (auto) 23.7 %; Mean Corpuscular Hgb Conc 34.4 g/dL (32-36); Mean Corpuscular Volume 90.2 fL (80-100); Mean Platelet Volume 9.1 fL (7.4-10.4); Monocytes # (auto) 0.58 K/uL (0.11-0.59); Monocytes % (auto) 10.4 %; Neutrophils # (auto) 3.47 K/uL (1.4-6.5); Neutrophils % (auto) 62.5 %; Platelet Count 192 K/uL (130-400); RDW Coefficient of Variation 15.7 % (11.5-14.5); RDW Standard Deviation 51.5 fL (36.4-46.3); Red Blood Count 4.38 M/uL (4.7-6.1); White Blood Count 5.56 K/uL (4.8-10.8)
--- NOTE | 2019-02-12 14:20 | XRay Report ---
XR chest Pre-admission PA/Lat HISTORY: 73 years-old Male PAT preoperative exam. No acute chest complaints COMPARISON: Chest and rib radiographs 09/27/2017 TECHNIQUE: PA and lateral views of the chest FINDINGS: Cardiac silhouette is enlarged, unchanged. Left atrial exclusion device. Prior median sternotomy. Lar ge hiatal hernia. No pneumothorax, pleural effusion or overt pulmonary edema. Minimal subsegmental at electasis/scarring. Degenerative changes of the shoulders and spine. IMPRESSION: 1. Cardiomegaly without acute process. 2. Large hiatal hernia. The above report was generated using voice recognition software. It may contain grammatical, syntax o r spelling errors. Electronically signed by: David Montgomery M.D. 02/12/2019 2:19 PM
[2019-02-12 14:22] LABS: BUN Creatinine Ratio 17.3 (10-20); Calcium 8.7 mg/dl (8.5-10.1); Creatinine Clr Calc Pharmacy 72.9 ml/min; Est GFR (African American) 92.7
[2019-02-12 14:27] LABS: INR 1.1 (0.9-1.1); Partial Thromboplastin Ratio 0.9; Partial Thromboplastin Time 24.5 Seconds (21.0-31.0); Prothrombin Time 11.3 Seconds (9.0-12.0)
--- NOTE | 2019-02-12 15:03 | XRay Report ---
XR cervical spine 2 or 3V HISTORY: 73 years-old Male pre op RA; lateral neutral/flexion/extension preoperative exam in a patie nt with history of rheumatoid arthritis COMPARISON: Chest radiographs of same day TECHNIQUE: Neutral, flexion and extension lateral views of the cervical spine. A total of 3 images we re submitted for review. FINDINGS: Unchanged 2 mm retrolisthesis C4 on C5 on neutral, flexion and extension. 2 mm anterolisthesis C3 on C4 with flexion. Predental interval appears normal. Alignment is otherwise satisfactory. Severe disc space narrowing at C4-C5 and C5-C6 with moderate disc space narrowing at C6-C7. Moderate multilevel f acet arthrosis. No acute fracture. No prevertebral soft tissue swelling. No opaque foreign body. Prio r median sternotomy. IMPRESSION: 1. No acute fracture. 2. Degenerative changes as above. 3. 2 mm anterolisthesis of C3 on C4 with flexion resolves with neutral and extension positioning susp icious for instability. Correlate clinically. The above report was generated using voice recognition software. It may contain grammatical, syntax o r spelling errors. Electronically signed by: David Montgomery M.D. 02/12/2019 3:02 PM
[~2019-02-27 08:46] MED LIST changes: -ALBU1AER9 INH; -ASPEC81 PO; +CEFAZOLIN 2000MG 2,000 MG/15 ML SYR IV SCH; -CLB200 PO; -FLV1 PO; -FRRS300 PO; -GFNSR600 PO; -LACTATED RINGER'S 1000ML 1,000 ML IV SCH; +LR 15ML/HR IV SCH; -METH2.5T PO; -METO25TA56 PO; -RANI150T85 PO; -VITA100C4 PO
[2019-02-27] MEDS ORDERED: ONDANSETRON INJ 2 MG/ML 2 ML VIAL ONE (10:00)
[2019-02-27] MEDS ORDERED: fentaNYL citrate 100 MCG/2 ML VIAL ONE (10:00)
[2019-02-27] MEDS ORDERED: ROCURONIUM BROMIDE 10 MG/ML 5 ML VIAL ONE (10:00)
[2019-02-27] MEDS ORDERED: PROPOFOL IV EMULSION 10 MG/ML 20 ML VIAL IV ONE (10:00)
[2019-02-27] MEDS ORDERED: LIDOCAINE HCL 2% 2 ML VIAL/AMP(20MG/ML) INFIL ONE (10:00)
[2019-02-27] MEDS ORDERED: DEXAMETHASONE SOD INJ 4 MG/ML VIAL ONE (10:00)
--- NOTE | 2019-02-27 11:00 | History & Physical Bridge Note ---
Date of Service February 27, 2019 History & Physical Bridge Note I have examined the patient, reviewed the History & Physical and in the interval since the performance of the History & Physical I have noted the following changes of clinical significance: no changes noted
[2019-02-27] MEDS ORDERED: ePHEDrine sulfate 50 MG/ML AMP IV PRN (11:01)
[2019-02-27] MEDS ORDERED: fentaNYL citrate 100 MCG/2 ML VIAL IV PRN (11:01)
[2019-02-27] MEDS ORDERED: ONDANSETRON INJ 2 MG/ML 2 ML VIAL IV PRN ×2 (11:01→17:21)
[2019-02-27] MEDS ORDERED: HYDROmorphone INJ 2 MG/ML SYR/VIAL IV PRN (11:01)
[2019-02-27] MEDS ORDERED: ATROPINE SULFATE 0.1 MG/ML 10ML SYR IV PRN (11:01)
[2019-02-27] MEDS ORDERED: PROMETHAZINE HCL 6.25 MG in SODIUM CHLORIDE 0.9% 50 ML IV PRN (11:01)
--- NOTE | 2019-02-27 11:01 | History & Physical Report ---
Date of Service February 27, 2019 Assessment & Plan (1) Spinal stenosis, lumbar region with neurogenic claudication: L2-L4 decompression and fusion hardware removal L4-S1 Present on Admission?: Yes History of Present Illness Chief Complaint: Back and leg pain Primary Care Provider: Isaak Castro, DO This is a 73-year-old male well-known to the office but presents with chronic persistent back and leg pain after failing extensive course of nonoperative care he is here for surgical intervention. Allergies Allergy/AdvReac Type Severity Reaction Status Date / Time adalimumab [From Humira] Allergy Intermediate WAS NOT Verified 02/27/19 09:10 EFFECTED FOR TREATMENT Home Medications Home Medications Medication Instructions Recorded Confirmed Type acetaminophen [Tylenol Arthritis 650 mg PO Q12H PRN 01/25/19 02/27/19 History Pain] aspirin 81 mg PO QAM 01/25/19 02/27/19 History celecoxib [Celebrex] 200 mg PO QAM 01/25/19 02/27/19 History coQ10 (ubiquinol) 200 mg PO QPM 01/25/19 02/27/19 History folic acid 1 mg PO BID 01/25/19 02/27/19 History methotrexate sodium 15 mg PO WK 01/25/19 02/27/19 History metoprolol tartrate 12.5 mg PO BID 01/25/19 02/27/19 History nitroglycerin 0.4 mg SUBLINGUAL UD PRN 01/25/19 02/27/19 History ranitidine HCl 150 mg PO BID 01/25/19 02/27/19 History rosuvastatin 20 mg PO QPM 01/25/19 02/27/19 History tofacitinib [Xeljanz XR] 11 mg PO QAM 01/25/19 02/27/19 History tramadol 50 mg PO Q4H PRN 01/25/19 02/27/19 History vitamin B complex 1 tab PO QPM 01/25/19 02/27/19 History vitamin E 400 unit PO QPM 01/25/19 02/27/19 History Past Med/Surg History Medical History Atrial fibrillation s/p Maze procedure/pulm vein isolation/BOLIVAR clip 09/2017. No known recurrence of Afib since. BPH (benign prostatic hyperplasia) CAD (coronary artery disease) s/p CABG 09/2017 Chronic obstructive pulmonary disease GERD (gastroesophageal reflux disease) Gout History of ischemic cardiomyopathy 2/2 sustained v. tach. Interval improvement in EF. Hyperlipidemia Hypertension Myocardial Infarction 1986 Osteoarthritis Rheumatoid arthritis Skin cancer EARS AND FACE (PRE-CANCEROUS TISSUE REMOVED) Spinal stenosis Surgical History Fusion of spine History of cardiac cath 1986 NO STENTS 2017 NO STENTS History of carpal tunnel release History of coronary artery bypass graft 09/2017 X 3 VESSELS (GARCIA-LAD, SVG-PDA, SVG-OM2) AT [facility] History of tonsillectomy History of tooth extraction Social History Preferred Language: Trinidadian Communication Ability: Effective [facility] Required: No Beliefs That Will Affect Care: None Current Living Situation: Significant Other Other Information That Helps Us Care for You: No Feels Safe at Home: Yes Safety Concerns: Feels Safe At This Time Smoking Status: Former smoker Tobacco Type: cigarettes ; Do You Dip or Chew Tobacco: No ; Smoking End Date: QUIT AT AGE 42 ; Second Hand Exposure: No ; Tobacco Cessation Education Requested by Patient: No Hx Alcohol Use: No Hx Substance Use: No Physical Exam Physical Exam: Patient is alert and oriented neurologically intact. Results & Data Vital Signs (Past 12 Hours) Vital Signs Temp Pulse Resp BP Pulse Ox 02/27/19 09:16 36.6 C 74 18 155/79 H 97
[2019-02-27] MEDS ORDERED: BUPIVACAINE/EPINEPHRINE 0.5% MPF 1:200,000 30 ML VIAL ONE (11:13)
[2019-02-27] MEDS ORDERED: BACITRACIN INJ 50,000 UNIT VIAL ONE (11:13)
[2019-02-27] MEDS ORDERED: FLOSEAL HEMOSTATIC MATRIX 10ML TOP ONE (12:26)
[2019-02-27] MEDS ORDERED: ALBUMIN HUMAN 5% 12.5 GM/250 ML VIAL IV ONE ×3 (13:16→15:54)
[2019-02-27] MEDS ORDERED: PHENYLEPHRINE 100MCG/ML 5ML SYR ONE (13:50)
[2019-02-27] MEDS ORDERED: ePHEDrine sulfate 50 MG/ML SYR ONE (13:50)
[2019-02-27] MEDS ORDERED: PHENYLEPHRINE HCL 10 MG/ML VIAL ONE (13:50)
[2019-02-27] MEDS ORDERED: NEOSTIGMINE METHYLSULFATE 1 MG/ML 10ML VIAL ONE (14:07)
[2019-02-27] MEDS ORDERED: GLYCOPYRROLATE 0.2 MG/ML VIAL ONE (14:07)
--- NOTE | 2019-02-27 14:21 | Fluoroscopy Report ---
FL lumbar spine 2-3V CLINICAL HISTORY: L4-S1 HARDWARE REMOVAL, L2-L4 DECOMPRESSION AND FUSION COMPARISON STUDY: FLUOROSCOPY TIME: 18 seconds. NUMBER OF FLUOROSCOPIC IMAGES: 2 FINDINGS: 2 fluoroscopic spot images reveal postsurgical changes of discectomy and interbody fusions at 3 consecutive lower lumbar levels. There is evidence for pedicle screw spinal fusion at 3 levels s urrounding the upper 2 level discectomies and interbody fusions. Please note that accurate numbering is difficult due to the limited field of view. IMPRESSION: Intraoperative fluoroscopic spot films as described above. Electronically signed by: Natanael Avitia M.D. 02/27/2019 2:19 PM
--- NOTE | 2019-02-27 14:26 | Operative Report ---
Post Operative Report Pre & Post Diagnosis Operation Date: 02/27/19 10:25 Pre-Op Diagnosis: LUMBAR SPINAL STENOSIS W/NEUROGENIC CLAUDICATION Post-Op Diagnosis: LUMBAR SPINAL STENOSIS W/NEUROGENIC CLAUDICATION Procedure Operation Date: 02/27/19 10:25 Actual Procedures #1 removal of posterior instrumentation L4-5 L5-S1. #2 exploration of fusion L4-5 L5-S1. #3 lumbar decompression with bilateral medial facetectomies L1-2 L2-3 L3-4. #4 posterior spinal fusion L2-3 L3-4. #5 placement posterior instrumentation L2-3 L3-4. #6 interbody fusion L2-3 and L3-4. #7 placement of peek cage 12 x 26 mm at L2-3 and L3-4. #8 placement of local autograft in the posterior lateral gutters per #9 placement infuse collagen sponge, master graft in the posterior lateral gutters and ostial amp and interbody space. Surgeon Pedro Fu, DO Straightedge Man None Estimated Blood Loss 600 Findings See Below There was a loss of over 600 cc of blood throughout the procedure. This combined with his severe stenosis and scoliotic deformity created significant technical difficulty throughout the procedure adding at least 50% increase in time. Specimens None Indications This is a 73-year-old male who presents with above-mentioned diagnosis after failing extensive course of nonoperative care is here for surgical intervention. Description of Procedure Patient was met with identified and informed consent obtained. Was then taken to the operative suite underwent intubation placed in a prone position on the Sulaiman table on top of the Golden frame. All bony prominences well-padded eyes inspected to ensure no external pressure placed upon but this point the lumbar spine was prepped and draped in normal sterile fashion. Sharp dissection with the assistance of Bovie cautery was then performed down to and exposing the lamina and transverse processes of L to L3 and the instrumentation at L4-L5 and the sacral ala bilaterally. I then proceed remove the hardware bilaterally explore the fusion mass noting to be intact. Then performed a complete laminectomy of L3 L2 and partial laminectomy of L1 including medial facetectomies and foraminotomies bilaterally. After complete decompression pedicle screws were placed in L2-L3-L4 bilateral with assistance of fluoroscopy the purposes darron placed. By way of a transforaminal approach on the right complete discectomy of L3-4 was performed in plate graded to subcortical mean bone and a 12 x 26 mm peek cage filled with ostium bone graft tapped in position. Then proceeded to L to [address] of a transforaminal approach complete discectomy was performed endplates curetted to subcortical bleeding bone and again a 12 x 26 mm peek cage filled with osteo-amp bone graft tapped in position. The rods were then locked in final position bilaterally. The transverse processes of L2-L3-L4 burred to subcortical bleeding bone. Infuse collagen sponge mass graft and local autograft was placed in the posterior lateral gutters. 15 round ARUN drain inserted. The incision was then closed with 1 Vicryl in the fascia 2-0 Vicryl subcutaneous and 4-0 Monocryl for final skin closure. Steri-Strips dressings placed. Patient will continue PACU stable disc. Please note spinal cord monitoring was utilized that the procedure no changes noted. I attest to the content of the Intraoperative Record and any orders documented therein. Any exceptions are noted below.
[2019-02-27] MEDS ORDERED: ALBUMIN 5% 250 ML IV SCH (16:00)
--- NOTE | 2019-02-27 16:44 | Anesthesiology Progress Note ---
Date of Service February 27, 2019 Anesthesia Post Procedure Vital Signs Vital Signs: Temp Pulse Pulse Resp BP Pulse Ox 02/27/19 16:35 74 20 102/60 95 02/27/19 16:25 36.5 C 72 17 94/59 L 94 02/27/19 16:15 73 18 91/57 L 93 02/27/19 16:05 70 19 88/57 L 92 02/27/19 15:55 70 18 83/56 L 95 02/27/19 15:45 76 16 87/55 L 95 02/27/19 15:35 70 15 90/56 L 94 02/27/19 15:25 69 15 90/53 L 94 02/27/19 15:15 69 14 87/57 L 95 02/27/19 15:05 69 14 91/59 L 95 02/27/19 14:55 68 16 85/58 L 96 02/27/19 14:45 72 15 112/65 97 02/27/19 14:36 36.9 C 77 16 74/48 L 98 02/27/19 09:16 36.6 C 74 18 155/79 H 97 Pain Intensity Lower Back: Pain Intensity: 0 Transfer of Care Handoff Completed per policy Notes Mental Status: alert / awake / arousable and participated in evaluation Patient Amnestic to Procedure: Yes Nausea / Vomiting: adequately controlled Pain: adequately controlled Airway Patency, RR, SpO2: stable & adequate BP & HR: stable & adequate Hydration State: stable & adequate Anesthetic Complications: no major complications apparent Notes: Pt AAO in PACU. Had modest hypotension in PACU with normal HR and adequate urine output. 5% albumin 250cc administered with improvement. To be discharged to med-surg unit.
[2019-02-27] MEDS ORDERED: NALOXONE HCL 0.4 MG/1 ML VIAL/CARP IV PRN (17:21)
[2019-02-27] MEDS ORDERED: DO NOT ADMINISTER FLU VACCINE PRN (17:21)
[2019-02-27] MEDS ORDERED: LORazepam 0.5 MG/1 ML VIAL IV PRN (17:21)
[2019-02-27] MEDS ORDERED: ACETAMINOPHEN 500 MG TAB PO PRN (17:21)
[2019-02-27] MEDS ORDERED: NITROGLYCERIN SL 0.4 MG/TAB TAB SL PRN (17:21)
[2019-02-27] MEDS ORDERED: ALUMINUM/MAGNESIUM SUSP 30 ML UDC PO PRN (17:21)
[2019-02-27] MEDS ORDERED: MAGNESIUM HYDROXIDE SUSP 30 ML UDC PO PRN (17:21)
[2019-02-27] MEDS ORDERED: NON-FORMULARY MEDICATION (Acetaminophen [Tylenol Arthritis Pain] 650 MG) PO PRN (17:21)
[2019-02-27] MEDS ORDERED: BISACODYL 10 MG SUPP PR PRN (17:21)
[2019-02-27] MEDS ORDERED: DO NOT ADMINISTER PNEUMOCOCCAL VACCINE PRN (17:21)
[2019-02-27] MEDS ORDERED: METOCLOPRAMIDE HCL INJ 5 MG/ML 2 ML VIAL IV PRN (17:21)
[2019-02-27] MEDS ORDERED: FAMOTIDINE 20 MG TAB PO PRN (17:21)
[2019-02-27] MEDS ORDERED: SOD PHOSPHATE/SOD BIPHOSPHATE ENEMA 132 ML BTL PR PRN (17:21)
[2019-02-27] MEDS ORDERED: HYDROmorphone INJ 0.5 MG/0.5 ML SYR IV PRN (17:21)
[2019-02-27] MEDS ORDERED: PROMETHAZINE HCL 12.5 MG in SODIUM CHLORIDE 0.9% 50 ML IV PRN (17:21)
[2019-02-27] MEDS ORDERED: LORazepam 0.5 MG TAB PO PRN (17:21)
[2019-02-27] MEDS ORDERED: OXYCODONE HCL IR 5 MG TAB (IMMEDIATE RELEASE) PO PRN (17:21)
[2019-02-27] MEDS ORDERED: ACETAMINOPHEN 1,000 MG/100 ML VIAL IV PRN (17:21)
[2019-02-27] MEDS ORDERED: ONDANSETRON 4 MG TAB PO PRN (17:21)
[2019-02-27] MEDS: SODIUM CHLORIDE 0.9% 1000ML 1,000 ML IV SCH (18:09)
[2019-02-27] MEDS: CEFAZOLIN 2000MG 2,000 MG/15 ML SYR IV SCH (19:08)
--- NOTE | 2019-02-27 19:36 | Hospitalist Consultation ---
Date of Consultation February 27, 2019 Assessment & Plan (1) Spinal stenosis, lumbar region with neurogenic claudication: History of chronic low back pain with neurologic claudication Has post lumbar decompression surgery by Dr. Fu today Postoperative day 1 Recovering well postoperatively Postop pain appears to be well controlled Continue PT OT, Continue routine postop management as per orthopedics (2) Coronary artery disease: History of coronary artery disease status post CABG approximately 1 year ago Follows with [facility] cardiology team Patient had negative stress test preop Pt Denies of any shortness of breath anginal symptoms Continue all outpatient cardiac meds (3) Rheumatoid arthritis: Hold RA disease modifying agents/biological agents-., To allow the uncomplicated healing of postoperative wound Patient denies of any joint pain, No evidence of RA flare Continue to monitor clinically CODE STATUS: Full code DVT prophylaxis: SCD and teds as per orthopedics Disposition: As per primary team History of Present Illness Reason for Consultation: Postop medical management Requesting Physician: Dr. Pedro Fu Attending Physician: Pedro Fu, DO History of Present Illness This is a 73-year-old male with past medical history of coronary artery disease, status post CABG, history of rheumatoid arthritis, iron deficiency anemia, dyslipidemia, COPD Underwent elective lumbar decompression surgery done by Dr. Fu today Patient seen at bedside in room 315, Says he feels 'fine" No complaint of chest heaviness, no shortness of breath, no cough Fever or chills Postoperative back pain well controlled Allergies Allergy/AdvReac Type Severity Reaction Status Date / Time adalimumab [From Humira] Allergy Intermediate WAS NOT Verified 02/27/19 09:10 EFFECTED FOR TREATMENT Home Medications Home Medications Medication Instructions Recorded Confirmed Type acetaminophen [Tylenol Arthritis 650 mg PO Q12H PRN 01/25/19 02/27/19 History Pain] aspirin 81 mg PO QAM 01/25/19 02/27/19 History celecoxib [Celebrex] 200 mg PO QAM 01/25/19 02/27/19 History coQ10 (ubiquinol) 200 mg PO QPM 01/25/19 02/27/19 History folic acid 1 mg PO BID 01/25/19 02/27/19 History methotrexate sodium 15 mg PO WK 01/25/19 02/27/19 History metoprolol tartrate 12.5 mg PO BID 01/25/19 02/27/19 History nitroglycerin 0.4 mg SUBLINGUAL UD PRN 01/25/19 02/27/19 History ranitidine HCl 150 mg PO BID 01/25/19 02/27/19 History rosuvastatin 20 mg PO QPM 01/25/19 02/27/19 History tofacitinib [Xeljanz XR] 11 mg PO QAM 01/25/19 02/27/19 History tramadol 50 mg PO Q4H PRN 01/25/19 02/27/19 History vitamin B complex 1 tab PO QPM 01/25/19 02/27/19 History vitamin E 400 unit PO QPM 01/25/19 02/27/19 History Patient History Medical History Atrial fibrillation s/p Maze procedure/pulm vein isolation/BOLIVAR clip 09/2017. No known recurrence of Afib since. BPH (benign prostatic hyperplasia) CAD (coronary artery disease) s/p CABG 09/2017 Chronic obstructive pulmonary disease GERD (gastroesophageal reflux disease) Gout History of ischemic cardiomyopathy 2/ sustained v. tach. Interval improvement in EF. Hyperlipidemia Hypertension Myocardial Infarction 1986 Osteoarthritis Rheumatoid arthritis Skin cancer EARS AND FACE (PRE-CANCEROUS TISSUE REMOVED) Spinal stenosis Surgical History Fusion of spine History of cardiac cath 1986 NO STENTS 2017 NO STENTS History of carpal tunnel release History of coronary artery bypass graft 09/2017 X 3 VESSELS (GARCIA-LAD, SVG-PDA, SVG-OM2) AT [facility] History of tonsillectomy History of tooth extraction Social History Preferred Language: Yi Communication Ability: Effective [employer] Required: No Beliefs That Will Affect Care: None Current Living Situation: Significant Other Other Information That Helps Us Care for You: No Feels Safe at Home: Yes Safety Concerns: Feels Safe At This Time Smoking Status: Former smoker Tobacco Type: cigarettes ; Do You Dip or Chew Tobacco: No ; Smoking End Date: QUIT AT AGE 42 ; Second Hand Exposure: No ; Tobacco Cessation Education Requested by Patient: No Hx Alcohol Use: No Hx Substance Use: No Physical Exam Constitutional: WD/WN, vitals as above no acute distress Eyes: PERRL, conjunctivae normal, anicteric sclerae ENMT: external ear and nose normal, oropharynx normal Neck: trachea midline, no thyromegaly Respiratory: normal respiratory effort, lungs clear to auscultation Cardiovascular: RRR, no murmur, no edema Gastrointestinal (Abdomen): normal bowel sounds, soft, nontender, no hep atosplenomegaly Musculoskeletal: Status post lumbar decompression surgery, drain present Skin: no rashes, warm and dry Neurologic: PERRL, EOMI, accommodation nl, no face palsy, no dysarthria Psychiatric: A+Ox3, euthymic affect Results & Data Vital Signs (Past 12 Hours) Vital Signs Temp Pulse Pulse Pulse Resp BP Pulse Ox 02/27/19 19:20 36.5 C 91 H 16 99/59 L 97 02/27/19 18:31 36.8 C 99 H 16 122/87 97 02/27/19 17:50 36.3 C L 93 H 18 109/69 93 02/27/19 17:27 36.5 C 76 17 99/61 L 96 02/27/19 17:05 77 15 97/55 L 96 02/27/19 16:55 36.2 C L 79 18 107/61 96 02/27/19 16:45 75 17 96/59 L 96 02/27/19 16:35 74 20 102/60 95 02/27/19 16:25 36.5 C 72 17 94/59 L 94 02/27/19 16:15 73 18 91/57 L 93 02/27/19 16:05 70 19 88/57 L 92 02/27/19 15:55 70 18 83/56 L 95 02/27/19 15:45 76 16 87/55 L 95 02/27/19 15:35 70 15 90/56 L 94 02/27/19 15:25 69 15 90/53 L 94 02/27/19 15:15 69 14 87/57 L 95 02/27/19 15:05 69 14 91/59 L 95 02/27/19 14:55 68 16 85/58 L 96 02/27/19 14:45 72 15 112/65 97 02/27/19 14:36 36.9 C 77 16 74/48 L 98 02/27/19 09:16 36.6 C 74 18 155/79 H 97 (1) Coronary artery disease Coronary Disease-Associated Artery/Lesion type: [place] artery [place] vs. transplanted heart: [place] heart Associated angina: without angina Qualified Code(s): I25.10 - Atherosclerotic heart disease of [place] coronary artery without angina pectoris (2) Rheumatoid arthritis Rheumatoid arthritis location: unspecified site Rheumatoid factor presence: unspecified presence Qualified Code(s): M06.9 - Rheumatoid arthritis, unspecified
[2019-02-27] MEDS ORDERED: NON-FORMULARY MEDICATION (Coq10 (Ubiquinol) 200 MG) PO SCH (21:00)
[2019-02-27] MEDS: DOCUSATE SODIUM/SENNA 50/8.6MG TAB PO SCH (21:24)
[2019-02-27] MEDS: TOCOPHERYL, DL-ALPHA 400 UNITS CAP PO SCH (21:24)
[2019-02-27] MEDS: VITAMIN B COMPLEX TAB PO SCH (21:24)
[2019-02-27] MEDS: ROSUVASTATIN CALCIUM 20 MG TAB PO SCH (21:24)
[2019-02-27] MEDS: FOLIC ACID 1 MG TAB PO SCH (21:24)
[2019-02-27] MEDS: METOPROLOL TARTRATE 25 MG TAB PO SCH (21:25)
[2019-02-28] MEDS: TRAMADOL HCL 50 MG TABLET PO PRN ×2 (00:09→23:41)
[2019-02-28] MEDS: SODIUM CHLORIDE 0.9% 1000ML 1,000 ML IV SCH (00:10)
[2019-02-28] MEDS: CEFAZOLIN 2000MG 2,000 MG/15 ML SYR IV SCH (03:56)
[2019-02-28] MEDS: POLYETHYLENE (MIRALAX) 17 GM PACK PO SCH ×4 (05:23→23:42)
[2019-02-28] MEDS: ALBUTEROL HFA 8 GM INHALER INH PRN ×2 (05:24→20:40)
[2019-02-28 06:40] LABS: Basophils # (auto) 0.01 K/uL (0-0.2); Basophils % (auto) 0.1 %; Hematocrit (blood only) 27.8 % (42-52); Hemoglobin 9.3 g/dL (14.0-18.0); Immature Granulocytes # (auto) 0.03 K/uL (0.00-0.02); Immature Granulocytes % (auto) 0.3 %; Lymphocytes # (auto) 0.89 K/uL (1.2-3.4); Lymphocytes % (auto) 8.1 %; Mean Corpuscular Hgb Conc 33.5 g/dL (32-36); Mean Corpuscular Volume 91.1 fL (80-100); Mean Platelet Volume 8.7 fL (7.4-10.4); Monocytes # (auto) 0.87 K/uL (0.11-0.59); Monocytes % (auto) 7.9 %; Neutrophils # (auto) 9.24 K/uL (1.4-6.5); Neutrophils % (auto) 83.6 %; Platelet Count 147 K/uL (130-400); RDW Standard Deviation 53.1 fL (36.4-46.3); Red Blood Count 3.05 M/uL (4.7-6.1); White Blood Count 11.04 K/uL (4.8-10.8)
[2019-02-28 07:13] LABS: BUN Creatinine Ratio 16.3 (10-20); Calcium 7.7 mg/dl (8.5-10.1); Creatinine Clr Calc Pharmacy 71.5 ml/min; Est GFR (African American) 90.4; Potassium 4.1 mmol/L (3.5-5.1)
--- NOTE | 2019-02-28 08:17 | Anesthesiology Progress Note ---
Date of Service February 28, 2019 Anesthesia Post Procedure Vital Signs Vital Signs: Temp Pulse Pulse Pulse Resp BP Pulse Ox 02/28/19 07:51 104 H 02/28/19 07:00 36.8 C 106 H 16 102/56 L 95 02/28/19 04:00 36.8 C 92 H 18 105/68 94 02/27/19 23:38 36.9 C 86 18 104/63 96 02/27/19 21:13 88 18 112/74 97 02/27/19 20:28 36.3 C L 86 16 92/62 L 94 02/27/19 19:20 36.5 C 91 H 16 99/59 L 97 02/27/19 18:31 36.8 C 99 H 16 122/87 97 02/27/19 17:50 36.3 C L 93 H 18 109/69 93 02/27/19 17:27 36.5 C 76 17 99/61 L 96 02/27/19 17:05 77 15 97/55 L 96 02/27/19 16:55 36.2 C L 79 18 107/61 96 02/27/19 16:45 75 17 96/59 L 96 02/27/19 16:35 74 20 102/60 95 02/27/19 16:25 36.5 C 72 17 94/59 L 94 02/27/19 16:15 73 18 91/57 L 93 02/27/19 16:05 70 19 88/57 L 92 02/27/19 15:55 70 18 83/56 L 95 02/27/19 15:45 76 16 87/55 L 95 02/27/19 15:35 70 15 90/56 L 94 02/27/19 15:25 69 15 90/53 L 94 02/27/19 15:15 69 14 87/57 L 95 02/27/19 15:05 69 14 91/59 L 95 02/27/19 14:55 68 16 85/58 L 96 02/27/19 14:45 72 15 112/65 97 02/27/19 14:36 36.9 C 77 16 74/48 L 98 02/27/19 09:16 36.6 C 74 18 155/79 H 97 Pain Intensity Lower Back: Pain Intensity: 5 Notes Mental Status: alert / awake / arousable Patient Amnestic to Procedure: Yes Nausea / Vomiting: adequately controlled Pain: adequately controlled Airway Patency, RR, SpO2: stable & adequate BP & HR: stable & adequate Hydration State: stable & adequate Anesthetic Complications: no major complications apparent
[2019-02-28] MEDS: FOLIC ACID 1 MG TAB PO SCH ×2 (08:27→20:38)
[2019-02-28] MEDS: METOPROLOL TARTRATE 25 MG TAB PO SCH ×3 (08:27→20:38)
[2019-02-28] MEDS: ASPIRIN 81 MG ECTAB PO SCH (08:27)
[2019-02-28] MEDS: CeleBREX 200 MG CAP PO SCH (08:27)
--- NOTE | 2019-02-28 09:25 | Hospitalist Progress Note ---
Date of Service February 28, 2019 Assessment & Plan (1) Spinal stenosis, lumbar region with neurogenic claudication: Spinal stenosis, lumbar region with neurogenic claudication (Acute) Doing well postop. PVCs (premature ventricular contractions) (Acute) Lytes [place]. Continue metoprolol. Coronary artery disease (Chronic) No anginal symptoms. Continue aspirin, metoprolol, statin. Atrial fibrillation (Chronic) History of AF, s/p maze procedure. Hypertension (Chronic) Continue metoprolol. Rheumatoid arthritis (Chronic) Methotrexate and Xeljanz on hold perioperatively. Continue Celebrex. VTE prophylaxis Per [facility]. Isaak Castro. Thank you for this consultation. We will follow the patient with you during their hospital stay. My cell # is [phone]. You can reach a member of the [facility] Medicine Team 17/01 via pager @ [phone]. Subjective Recheck for postoperative medical management. Patient seen in their room around 0900. Lumbar decompression / fusion performed yesterday. Doing well postoperatively. No chest pain, cough, SOB, nausea, vomiting. Pain well-controlled. Nursing noted irregular cardiac rhythm this morning. Did not receive metoprolol last evening because of sys BP in 90s. Review of Systems: Constitutional- no fever. Cardiac- no chest pain. Pulmonary- no cough or SOB. GI- no nausea, vomiting; not passing flatus or stool yet. - Phoenix cath. Otherwise, as noted above. Physical Exam Physical Exam: Constitutional- afebrile, no acute distress Eyes- sclerae anicteric Respiratory- clear to auscultation, no respiratory distress Cardiovascular- cardiac rhythm regular with occasional ectopy, no murmurs or gallops appreciated, no JVD, no pretibial edema or calf tenderness Gastrointestinal- normal bowel sounds, soft, nondistended, nontender - Phoenix cath Skin- warm and dry, no rash Psychiatric- alert, oriented Results & Data Vital Signs (Past 12 Hours) Vital Signs Temp Pulse Pulse Resp BP Pulse Ox 02/28/19 08:40 112 H 110/72 02/28/19 07:51 104 H 02/28/19 07:00 36.8 C 106 H 16 102/56 L 95 02/28/19 04:00 36.8 C 92 H 18 105/68 94 02/27/19 23:38 36.9 C 86 18 104/63 96 Laboratory Results Laboratory Results - last 24 hr 02/28/19 02/28/19 02/28/19 06:20 06:20 06:20 WBC 11.04 H RBC 3.05 L Hgb 9.3 L Hct 27.8 L MCV 91.1 MCH 30.5 MCHC 33.5 RDW Std Deviation 53.1 H RDW Coeff of Vamsi 16.0 H Plt Count 147 MPV 8.7 Immature Gran % (Auto) 0.3 Neut % (Auto) 83.6 Lymph % (Auto) 8.1 Campbell % (Auto) 7.9 Eos % (Auto) 0.0 Baso % (Auto) 0.1 Immature Gran # (Auto) 0.03 H Neut # (Auto) 9.24 H Lymph # (Auto) 0.89 L Campbell # (Auto) 0.87 H Eos # (Auto) 0.00 Baso # (Auto) 0.01 Sodium 141 Potassium 4.1 Chloride 111 H Carbon Dioxide 23 Anion Gap 7.0 BUN 15 Creatinine 0.95 Est Cr Clr Drug Dosing 71.5 Est GFR ( Amer) 90.4 Est GFR (Non-Af Amer) 78.0 BUN/Creatinine Ratio 16.3 Glucose 147 H Calcium 7.7 L Magnesium 2.0 ECG Additional Comments: EKG performed at [address] at 110 / min, PVC's, no acute changes.
--- NOTE | 2019-02-28 09:55 | Orthopedic Progress Note ---
Date of Service February 28, 2019 Assessment & Plan (1) Spinal stenosis, lumbar region with neurogenic claudication: This time we will continue physical therapy monitor his ARUN output anticipate discharge home Tuesday. Present on Admission?: Yes Subjective Back pain is controlled leg symptoms improved. Physical Exam Physical Exam: On exam patient is good strength testing appears comfortable. Results & Data Vital Signs (Past 12 Hours) Vital Signs Temp Pulse Pulse Resp BP Pulse Ox 02/28/19 08:40 112 H 110/72 02/28/19 07:51 104 H 02/28/19 07:00 36.8 C 106 H 16 102/56 L 95 02/28/19 04:00 36.8 C 92 H 18 105/68 94 02/27/19 23:38 36.9 C 86 18 104/63 96
[2019-02-28] MEDS: TOCOPHERYL, DL-ALPHA 400 UNITS CAP PO SCH (20:38)
[2019-02-28] MEDS: VITAMIN B COMPLEX TAB PO SCH (20:38)
[2019-02-28] MEDS: DOCUSATE SODIUM/SENNA 50/8.6MG TAB PO SCH (20:38)
[2019-02-28] MEDS: ROSUVASTATIN CALCIUM 20 MG TAB PO SCH (20:38)
[2019-03-01] MEDS: POLYETHYLENE (MIRALAX) 17 GM PACK PO SCH ×3 (05:14→17:26)
--- NOTE | 2019-03-01 08:45 | Orthopedic Progress Note ---
Date of Service March 01, 2019 Assessment & Plan (1) Spinal stenosis, lumbar region with neurogenic claudication: This time I will continue physical therapy as tolerated. Will obtain an H&H this morning. Present on Admission?: Yes Subjective Patient's back pain is controlled leg symptoms improved. Is trying physical therapy. This morning his blood pressure is a bit low. He denies any shortness of breath. Physical Exam Physical Exam: On exam he is in the chair at the bedside. Is good strength te sting. Results & Data Vital Signs (Past 12 Hours) Vital Signs Temp Pulse Resp BP Pulse Ox 03/01/19 07:27 36.6 C 80 16 98/63 L 97 03/01/19 00:09 37.3 C 95 H 17 120/68 97
[2019-03-01 08:57] LABS: Hematocrit (blood only) 28.4 % (42-52); Hemoglobin 9.6 g/dL (14.0-18.0)
[2019-03-01] MEDS: FOLIC ACID 1 MG TAB PO SCH ×2 (09:15→21:29)
[2019-03-01] MEDS: METOPROLOL TARTRATE 25 MG TAB PO SCH ×2 (09:16→21:30)
[2019-03-01] MEDS: ASPIRIN 81 MG ECTAB PO SCH (09:16)
[2019-03-01] MEDS: CeleBREX 200 MG CAP PO SCH (09:16)
--- NOTE | 2019-03-01 20:18 | Hospitalist Progress Note ---
Date of Service March 01, 2019 Assessment & Plan (1) Spinal stenosis, lumbar region with neurogenic claudication: Spinal stenosis, lumbar region with neurogenic claudication (Acute) POD # 2. Doing well postop. PVCs (premature ventricular contractions) (Acute) PVC's noted 02/28- asymptomatic. Lytes [place]. Continue metoprolol. Coronary artery disease (Chronic) No anginal symptoms. Continue aspirin, metoprolol, statin. Atrial fibrillation (Chronic) History of AF, s/p maze procedure. Hypertension (Chronic) Continue metoprolol with hold parameters. Rheumatoid arthritis (Chronic) Methotrexate and Xeljanz on hold perioperatively. Continue Celebrex. VTE prophylaxis Per Ortho protocol. [facility] Family Medicine follow-up with Dr. Isaak Castro. Thank you for this consultation. We will follow the patient with you during their hospital stay. My cell # is [phone]. You can reach a member of the [facility] Medicine Team 17/01 via pager @ [phone]. Subjective Recheck for postoperative medical management. Patient seen in their room around [id number]. Systolic blood pressure in the 90s this morning, associated with some lightheadedness. Symptoms improved this afternoon. No chest pain, palpitations, dyspnea. Passing flatus, but no stool. Phoenix catheter removed; voiding without difficulty. Postop pain well controlled. Review of Systems: Constitutional- no fever. Cardiac- as noted above. Pulmonary- no cough or SOB. GI- no nausea, vomiting; + flatus, no stool - Phoenix cath removed. Otherwise, as noted above. Physical Exam Physical Exam: Constitutional- afebrile, no acute distress Eyes- sclerae anicteric Respiratory- clear to auscultation, no respiratory distress Cardiovascular- cardiac rhythm regular with occasional ectopy, no murmurs or gallops appreciated, no JVD, no pretibial edema or calf tenderness Gastrointestinal- normal bowel sounds, soft, nondistended, nontender Skin- warm and dry, no rash Psychiatric- alert, oriented Results & Data Vital Signs (Past 12 Hours) Vital Signs Temp Pulse Resp BP Pulse Ox 03/01/19 15:18 36.6 C 78 16 101/67 98 Laboratory Results Laboratory Results - last 24 hr 03/01/19 08:49 Hgb 9.6 L Hct 28.4 L
[2019-03-01] MEDS: ROSUVASTATIN CALCIUM 20 MG TAB PO SCH (21:29)
[2019-03-01] MEDS: VITAMIN B COMPLEX TAB PO SCH (21:29)
[2019-03-01] MEDS: TOCOPHERYL, DL-ALPHA 400 UNITS CAP PO SCH (21:29)
[2019-03-01] MEDS: DOCUSATE SODIUM/SENNA 50/8.6MG TAB PO SCH (21:30)
[2019-03-02] MEDS: POLYETHYLENE (MIRALAX) 17 GM PACK PO SCH ×4 (00:17→18:43)
[2019-03-02] MEDS: CeleBREX 200 MG CAP PO SCH (08:51)
[2019-03-02] MEDS: ASPIRIN 81 MG ECTAB PO SCH (08:51)
[2019-03-02] MEDS: FOLIC ACID 1 MG TAB PO SCH ×2 (08:51→20:06)
[2019-03-02] MEDS: METOPROLOL TARTRATE 25 MG TAB PO SCH ×2 (08:51→20:07)
--- NOTE | 2019-03-02 12:20 | Orthopedic Progress Note ---
Date of Service March 02, 2019 Assessment & Plan (1) Spinal stenosis, lumbar region with neurogenic claudication: At this time we will continue physical therapy monitor his ARUN output. He is yet to have a bowel movement yet. Anticipate discharge home tomorrow. Present on Admission?: Yes Subjective Patient's back pain controlled leg pain markedly improved. Physical Exam Physical Exam: Patient is in the chair at the bedside. He has good strength testing. Appears comfortable. Results & Data Vital Signs (Past 12 Hours) Vital Signs Temp Pulse Resp BP Pulse Ox 03/02/19 08:50 88 105/70 03/02/19 07:31 37.1 C 49 L 16 122/78 95
--- NOTE | 2019-03-02 15:31 | Hospitalist Progress Note ---
Date of Service March 02, 2019 Assessment & Plan (1) Spinal stenosis, lumbar region with neurogenic claudication: Spinal stenosis, lumbar region with neurogenic claudication (Acute) POD # 3. Doing well postop. PVCs (premature ventricular contractions) (Acute) PVC's noted 02/28- asymptomatic. Lytes [place]. Continue metoprolol. Coronary artery disease (Chronic) No anginal symptoms. Continue aspirin, metoprolol, statin. Atrial fibrillation (Chronic) History of AF, s/p maze procedure. Hypertension (Chronic) Continue metoprolol with hold parameters. Rheumatoid arthritis (Chronic) Methotrexate and Xeljanz on hold perioperatively. Continue Celebrex. VTE prophylaxis Per Ortho protocol. Dispostion Family Medicine follow-up with Dr. Isaak Castro. Thank you for this consultation. We will follow the patient with you during their hospital stay. My cell # is [phone]. You can reach a member of the [facility] Medicine Team 17/01 via pager @ [phone]. Subjective Recheck for postoperative medical management. Patient seen in their room around 1200 and again around 1400. BP's improved. No lightheadedness. No chest pain, palpitations, dyspnea. Passing flatus, but still no stool. Phoenix catheter removed; voiding without difficulty. Postop pain well controlled. Ambulating without difficulty. Review of Systems: Constitutional- no fever. Cardiac- as noted above. Pulmonary- no cough or SOB. GI- no nausea, vomiting; + flatus, no stool - Phoenix cath removed. Otherwise, as noted above. Physical Exam Physical Exam: Constitutional- afebrile, no acute distress Eyes- sclerae anicteric Respiratory- clear to auscultation, no respiratory distress Cardiovascular- cardiac rhythm regular, no murmurs or gallops appreciated, no JVD, no pretibial edema or calf tenderness Gastrointestinal- normal bowel sounds, soft, nondistended, nontender Skin- warm and dry, no rash Psychiatric- alert, oriented Results & Data Vital Signs (Past 12 Hours) Vital Signs Temp Pulse Resp BP Pulse Ox 03/02/19 08:50 88 105/70 03/02/19 07:31 37.1 C 49 L 16 122/78 95
[2019-03-02] MEDS: TOCOPHERYL, DL-ALPHA 400 UNITS CAP PO SCH (20:06)
[2019-03-02] MEDS: ROSUVASTATIN CALCIUM 20 MG TAB PO SCH (20:06)
[2019-03-02] MEDS: DOCUSATE SODIUM/SENNA 50/8.6MG TAB PO SCH (20:06)
[2019-03-02] MEDS: VITAMIN B COMPLEX TAB PO SCH (20:06)
[2019-03-03] MEDS: METOPROLOL TARTRATE 25 MG TAB PO SCH (08:26)
[2019-03-03] MEDS: ASPIRIN 81 MG ECTAB PO SCH (08:26)
[2019-03-03] MEDS: CeleBREX 200 MG CAP PO SCH (08:26)
[2019-03-03] MEDS: FOLIC ACID 1 MG TAB PO SCH (08:27)
--- NOTE | 2019-03-03 10:04 | Discharge Summary ---
Date of Service March 03, 2019 Admission HPI Per Admitting Provider This is a 73-year-old male well-known to the office but presents with chronic persistent back and leg pain after failing extensive course of nonoperative care he is here for surgical intervention. Principal Diagnosis Lumbar spinal stenosis with neurogenic claudication Discharge Data Allergies Allergy/AdvReac Type Severity Reaction Status Date / Time adalimumab [From Humira] Allergy Intermediate WAS NOT Verified 02/27/19 09:10 EFFECTED FOR TREATMENT Consultations 02/27/19 17:21 Consult Case Management - Discharge Planning Routine Consult Hospitalist Routine Procedures Performed Operation Date: 02/27/19 10:25 Actual Procedures p L4-S1 Hardware Removal; L2-L4 Decompression and Fusion, Spinal Cord Monitoring, bone morphogenic protein, Osteoamp allograft, interbody cage L2-4 - Pedro Fu DO Ordered Studies 02/27/19 07:00 FL fluoroscopy <1hr Routine FL lumbar spine 2-3V Routine Hospital Course (1) Spinal stenosis, lumbar region with neurogenic claudication: Patient underwent multilevel lumbar decompression fusion tolerance was taken to orthopedic for possibly. Postop day 1 is up and in bleeding progressed to postop day #2 ARUN drain per decreasing appropriately. Bowels working well. Separately discharged home on postop day #3. Discharge orders instructions from the chart for further review. Total Time Total Time Spent Total Time Spent (In Minutes): Lumbar spinal stenosis with neurogenic claudication Discharge Plan Discharge Items Patient Disposition: Home - Self-Care Reason For Visit: LUMBAR SPINAL STENOSIS W/NEUROGENIC CLAUDICATION Discharge Diagnosis: Lumbar spinal stenosis with neurogenic claudication Discharge Goals: Improve function Activity: Per 'Additional Instructions' section Non-emergency contact: Primary Care Provider Call non-emergency contact if: you have any medication questions Follow-up/Referrals: Isaak Castro DO [Primary Care Provider] - Diet: Regular Addtl Provider Instructions: ACTIVITY RECOMMENDATIONS: SELF CARE INSTRUCTIONS AFTER THORACIC/LUMBAR FUSIONS 1. You may walk to your tolerance. It is good exercise for your legs and back. Expect some back and intermittent leg aches and pains. 2. You may perform "counter-top" level activities (make a sandwich, lizbeth with a project, etc.). 3. No bending or lifting of more than 10 pounds or back twisting of any nature (roll like a log when turning in bed). 4. You may ride in a car for 20-30 minutes at a time. No driving until after your first visit with your doctor. 5. Frequent changes of position and restricting sitting to 30 minutes at a time will help limit the amount of back spasms and stiffness you may experience. 6. You may discontinue the use of ambulatory aids (cane, crutches, etc.) once your strength and confidence allow. 7. You may spinal surgeon the shower and let water strike your incision when you ar rive home at least once daily. Do not take a tub bath, sit in a hot tub or go into a swimming pool until after your first recheck in the office. SPECIAL CARE INSTRUCTIONS: VERY IMPORTANT TO READ AND REVIEW A. Your surgical incision has been closed with a cosmetic suture under the skin that will dissolve in about 6 weeks. In 14 days, you can use a pair of clean scissors and cut the suture that is left outside of the skin at the ends of your incision. 1. The small skin tapes can be removed 7 days after surgery if they have not fallen off by that point. 2. You may keep the wound open to air as much as possible to promote healing after post-op day number 5 unless told otherwise by your doctor. 3. If you think the wound looks like it is becoming infected (redness or worsening drainage) and/or you are experiencing fever, chill or worsening back pain and muscle spasms, contact the office so that we may evaluate you as soon as possible. B. Complications are uncommon, but please contact us if you have any signs or symptoms of: 1. wound infection (fever higher than 102.5 degrees F, redness, separation of wound, drainage, or increasing pain from the incision) 2. blood clots in legs (pain, swelling, redness and warmth in legs) 3. urinary tract infection (fever higher than 102.5 degrees F, burning upon urination or increased frequency of urination) 4. nerve problems (inability to walk on your toes or heels, numbness, loss of bowel or bladder control) 5. any other symptoms that concern you C. Please call the office at if you have any concerns or questions about your operation or recovery. D. No smoking! Smoking drastically decreases the chance of a solid fusion. E. Do not take any anti-inflammatory medications (Indocin, Advil, Motrin, Aspirin, Naprosyn, etc.) as these may inhibit the chance of a solid fusion. Tylenol is okay to take for pain. MANAGING PAIN AFTER SPINAL SURGERY 1. Narcotic medication is intended for short-term use and will be provided for surgical pain. Surgical pain usually lasts for a period of 4-6 weeks. Narcotic medication includes Percocet, Vicodin, Darvocet, Tylenol #3 or Lortab. 2. Longer-term pain is more appropriately treated with non-narcotic medication such as Tylenol ES. 3. Muscle spasm is not appropriately treated with narcotics. Muscle relaxers such as Soma, Flexeril or Skelaxin can be used along with Tylenol ES. 4. Remember that we all live with some "aches and pains". This is not unusual or uncommon after an injury or as we get older. a. Back pain is expected and may include muscle spasms for 4 to 6 weeks after surgery. The pain should gradually improve. If the pain worsens for no apparent reason, please contact the office. b. Intermittent leg pain may also be experienced and should not be concerned about unless it worsens for no apparent reason. If so, please contact the office. 5. We will provide appropriate medication within the normal guidelines of their prescribed use. We will also be very cautious and aware of potential abuse and extended duration of patients' medication needs. a. Pain medications are for your comfort and to assist with sleep and rest so that the tissue can heal. They are not provided in order to return to normal activity and should not be used through the day. To do so or worsening pain at night can result from ongoing tissue damage and development of tolerance to the prescribed medicine. 6. Please allow 2-3 days to process refills. Prescriptions will not be mailed but must be picked up at the office. FOLLOW UP VISIT: Keep your scheduled follow-up appointment. Any questions, please call the office at . Prescriptions: New tramadol 50 mg Tablet 50 mg PO Q4H PRN (Reason: Pain, Moderate) Qty: 30 RF: 0 oxycodone 5 mg Tablet 5 mg PO Q4H PRN (Reason: Pain, Severe) Qty: 30 RF: 0 Continued celecoxib [Celebrex] 200 mg Capsule 200 mg PO QAM RF: 0 aspirin 81 mg Tablet,Delayed Release (Dr/Ec) 81 mg PO QAM RF: 0 tramadol 50 mg Tablet 50 mg PO Q4H PRN (Reason: Pain) RF: 0 acetaminophen [Tylenol Arthritis Pain] 650 mg Tablet Extended Release 650 mg PO Q12H PRN (Reason: Pain) RF: 0 ranitidine HCl 150 mg Tablet 150 mg PO BID RF: 0 vitamin B complex Tablet 1 tab PO QPM RF: 0 folic acid 1 mg Tablet 1 mg PO BID RF: 0 vitamin E 400 unit Capsule 400 unit PO QPM RF: 0 rosuvastatin 20 mg Tablet 20 mg PO QPM RF: 0 metoprolol tartrate 25 mg Tablet 12.5 mg PO BID RF: 0 coQ10 (ubiquinol) 200 mg Capsule 200 mg PO QPM RF: 0 nitroglycerin 0.4 mg Tablet, Sublingual 0.4 mg sublingual UD PRN (Reason: Chest Pain) RF: 0 Xeljanz XR 11 mg Tablet Extended Release 24 Hr 11 mg PO QAM RF: 0 Discontinued methotrexate sodium 2.5 mg Tablet 15 mg PO WK RF: 0 Stand-Alone Forms: [facility] Discharge Orders: Discharge Order (Routine); Ordered 03/03/19 Ordered By: Pedro Fu Admission Data Admit Date/Time: 02/27/19 14:30 Attending Provider: Pedro Fu Admit Provider: Pedro Fu Primary Care Provider: Isaak Castro Other Providers: Stanley Hooks Service: Surgical Services
--- NOTE | 2019-03-03 10:23 | Hospitalist Progress Note ---
Date of Service March 03, 2019 Assessment & Plan (1) Spinal stenosis, lumbar region with neurogenic claudication: Spinal stenosis, lumbar region with neurogenic claudication (Acute) POD # 4. Doing well postop. PVCs (premature ventricular contractions) (Acute) PVC's noted 02/28- asymptomatic. Lytes [place]. Continue metoprolol. Coronary artery disease (Chronic) No anginal symptoms. Continue aspirin, metoprolol, statin. Atrial fibrillation (Chronic) History of AF, s/p maze procedure. Hypertension (Chronic) Continue metoprolol with hold parameters. Rheumatoid arthritis (Chronic) Methotrexate and Xeljanz on hold perioperatively. Continue Celebrex. VTE prophylaxis Per Ortho protocol. Dispostion Family Medicine follow-up with Dr. Isaak Castro. Thank you for this consultation. We will follow the patient with you during their hospital stay. My cell # is [phone]. You can reach a member of the [facility] Medicine Team 17/01 via pager @ [phone]. Subjective Recheck for postoperative medical management. Patient seen in their room around 1010. Doing well. Postop pain well controlled. Ambulating without difficulty. Passing flatus and stool. Review of Systems: Constitutional- no fever. Cardiac- no chest pain or palpitations. Pulmonary- no cough or SOB. GI- no nausea, vomiting - voiding without difficulty. Otherwise, as noted above. Physical Exam Constitutional: no acute distress Respiratory: no respiratory distress Auscultation: lungs clear to ausc ultation bilaterally Cardiovascular: Rate/Rhythm: regular rate and regular rhythm Heart Sounds: no gallop, no murmur and no cardiac rub Vessels: no JVD Extremities: no calf tenderness and no edema Gastrointestinal (Abdomen): normal bowel sounds, soft, nontender, no hepatosplenomegaly Musculoskeletal: TEDS applied Skin: no rashes, warm and dry Psychiatric: Orientation: alert and oriented x 3 Results & Data Vital Signs (Past 12 Hours) Vital Signs Temp Pulse Resp BP Pulse Ox 03/03/19 08:25 91 H 114/76 03/03/19 07:04 36.9 C 83 18 107/73 95 03/02/19 23:13 36.6 C 82 18 106/69 96
--- NOTE | 2019-03-07 13:33 | Coding Query ---
CODING QUERY To promote full compliance with coding requirements relating to patient care, provider participation is requested in all cases of retail worker uncertainty. Please assist us with the question(s) below: Coding Question(s): The Operative Report on 02/27/19 documents, " There was a loss of over 600 cc of blood throughout the procedure. This combined with his severe stenosis and scoliotic deformity created significant technical difficulty throughout the procedure adding at least 50% increase in time.". There is no further mention of blood loss. Please clarify below, in your clinical opinion. ( ) Blood Loss was an Intraoperative Complication ( ) Blood Loss was a Postoperative Complication (x ) Blood Loss was expected and not a complication and not a significant diagnosis ( ) Blood Loss was Other: Please Specify Physician's Response(s): Thank you Chelsea Salcedo Principal Diagnosis: "that condition established after study, to be chiefly responsible for occasioning the admission of the patient to the hospital for care." Co-Existing Principal Diagnosis: "when two or more diagnoses equally meet the criteria for principal diagnosis as determined by the circumstances of admission, diagnostic work up, and/or therapy provided, and the Alphabetic Index, Tabular List, or another coding guideline does not provide sequencing direction, any one of the diagnoses may be sequenced first." "When the physician has documented what appears to be a current diagnosis in the body of the record, but has not included the diagnosis in the final diagnostic statement, the physician should be asked whether the diagnosis should be added." (Source Coding [facility] 2 QTR90. p3-4) GIANCARLO
== END 2019-03-03 11:20 | disposition home or self-care (01) | DRG 455 ==
LOC: ASU 08:46 → 3E 14:30

== ENCOUNTER 2023-05-01 20:16 | Inpatient (IN) ==
[2023-05-01] MEDS ORDERED: SODIUM CHLORIDE 0.9% 500 ML IV STA (20:38)
--- NOTE | 2023-05-01 20:44 | Emergency Department Note ---
ED Provider Note History of Present Illness Chief Complaint: Back Injury/Pain Stated Complaint: LOWER BACK PAIN, HISTORY KIDNEY STONES Time Seen by Provider: 05/01/23 20:22 77-year-old male who presents the emergency department with his for evaluation of lower back and right flank/right upper quadrant abdominal pain. The patient reports that the pain has been ongoing for the past few weeks, and is becoming more constant worsening. The patient reports that he was out in the [place] when his garden tractor, looking for a [place] tree to cut up for firewood. He reports that riding the mower made the pain worse. The patient has had a remote history of a kidney stone that passed on its own. He reports that this feels similar. He has had intermittent nausea without vomiting. The patient reports that his pain currently is not as bad as he come in, rating his discomfort a 5 out of 10. It is noted that he rated his pain an 8 out of 10 in triage. Patient has had a prior history of GI bleeding. He denies any known history of diverticulitis. Home Medications Medication Instructions Recorded Confirmed Type acetaminophen 650 mg 650 mg PO Q12H PRN Pain 01/25/19 04/21/23 History tablet,extended release (Tylenol Arthritis Pain) aspirin 81 mg tablet,delayed 81 mg PO QAM 01/25/19 04/21/23 History release celecoxib 200 mg capsule (Celebrex) 200 mg PO QAM 01/25/19 04/21/23 History coQ10 (ubiquinol) 200 mg capsule 200 mg PO QPM 01/25/19 04/21/23 History folic acid 1 mg tablet 1 mg PO BID 01/25/19 04/21/23 History metoprolol tartrate 25 mg tablet 12.5 mg PO BID 01/25/19 04/21/23 History nitroglycerin 0.4 mg sublingual 0.4 mg sublingual UD PRN Chest Pain 01/25/19 04/21/23 History tablet ranitidine HCl 150 mg tablet 150 mg PO BID 01/25/19 04/21/23 History rosuvastatin 20 mg tablet 20 mg PO QPM 01/25/19 04/21/23 History tofacitinib 11 mg tablet,extended 11 mg PO QAM 01/25/19 04/21/23 History release 24 hr (Xeljanz XR) tramadol 50 mg tablet 50 mg PO Q4H PRN Pain 01/25/19 04/21/23 History vitamin B complex 1 tab PO QPM 01/25/19 04/21/23 History vitamin E 268 mg (400 unit) capsule 400 unit PO QPM 01/25/19 04/21/23 History oxycodone 5 mg tablet 5 mg PO Q4H PRN Pain, Severe #30 02/28/19 04/21/23 Rx tabs ketoconazole 2 % topical cream 1 applic topical BID #60 grams 11/01/22 04/21/23 Rx Allergies Allergy/AdvReac Type Severity Reaction Status Date / Time adalimumab [From Humira] Allergy Intermediate WAS NOT Verified 04/21/23 10:25 EFFECTED FOR TREATMENT Past Med/Surg History Medical History CAD (coronary artery disease) s/p CABG 09/2017 History of ischemic cardiomyopathy 2/2 sustained v. tach. Interval improvement in EF. Spinal stenosis Gout Osteoarthritis BPH (benign prostatic hyperplasia) Rheumatoid arthritis GERD (gastroesophageal reflux disease) Atrial fibrillation s/p Maze procedure/pulm vein isolation/BOLIVAR clip 09/2017. No known recurrence of Afib since. Myocardial Infarction 1986 Hypertension Hyperlipidemia Chronic obstructive pulmonary disease Surgical History History of carpal tunnel release Fusion of spine History of tooth extraction History of tonsillectomy History of coronary artery bypass graft 09/2017 X 3 VESSELS (GARCIA-LAD, SVG-PDA, SVG-OM2) AT [facility] History of cardiac cath 1986 NO STENTS 2017 NO STENTS Family History Brother Family history of diabetes mellitus Grandmother (Maternal) Family history of diabetes mellitus Social History Smoking Status: Former smoker Tobacco Type: Cigarettes Second Hand Exposure: No; Do You Dip or Chew Tobacco: No; Hx Alcohol Use: No Hx Substance Use: No Preferred Language: [place] Communication Ability: Effective Visual Impairment: No Limitations Transitional Care Liaison Required: No Beliefs That Will Affect Care: None marital status: Current Living Situation: Significant Other Feels Safe at Home: Yes Assistive Devices: None Physical Exam Vital Signs Vital Signs - 24 hr 05/01/23 20:17 05/01/23 22:55 05/01/23 23:53 Temperature 36.3 C L Temperature Source Temporal Artery Scan Pulse Rate 78 Pulse Rate [Radial] 87 76 Pulse Rhythm [Radial] Regular Pulse Strength [Radial] Normal Respiratory Rate 20 16 18 Respiratory Effort / Characteristics Non-Labored Spontaneous Respiratory Depth Normal Respiratory Pattern Regular Blood Pressure 155/80 H Blood Pressure [Left Arm] 181/94 H 110/75 Blood Pressure Mean 105 Blood Pressure Mean [Left Arm] 123 86 Blood Pressure Position [Left Arm] Sitting Pulse Oximetry 95 95 96 Oxygen Delivery Method Room Air Room Air Sepsis Recent Fever Within 48 Hours No Sepsis New/Unexplained Change in Mental Status No Sepsis Action Taken by Nursing No Action Required CONSTITUTIONAL: Healthy and well nourished. Alert and oriented X 3. Patient does not appear in any significant distress HEENT: No scleral icterus or conjunctival injection/pallor. NECK: Full active range of motion without discomfort. LYMPHATICS: No cervical chain adenopathy. RESPIRATORY: Clear to auscultation bilaterally with no wheezing, crackles, rhonchi or stridor. CARDIOVASCULAR: Regular rate and rhythm with no murmurs, rubs or gallops. GASTROINTESTINAL: Bowel sounds present in all quadrants. Examination shows generalized lower abdominal tenderness to palpation with a positive McBurney's point tenderness and Rovsing sign. Negative CVA tenderness. No abdominal rigidity, guarding or rebound. MUSCULOSKELETAL: Full range of motion of all joints without discomfort. INTEGUMENTARY: No rash or other significant dermatologic conditions noted. HEMATOLOGIC: No ecchymosis or petechiae. PSYCHIATRIC: Positive affect. NEUROLOGIC: No focal neurologic deficits noted. Course Course Patient history and physical exam were performed. Nurses notes were reviewed. Vital signs were reviewed the access was established, and labs were drawn. The patient was hydrated with a normal saline 500 cc's. He refused any analgesics or antiemetics on initial exam. Review of labs did not show any significant or concerning findings. Urinalysis shows no hematuria or signs of infection. CT with IV contrast of the abdomen and pelvis shows multiple enlarged retroperitoneal lymph nodes, as well as bulky right pelvic sidewall adenopathy, with radiologist concerns for primary malignancy such as lymphoma or testicular cancer. Patient is also noted to have partial obstruction of the right ureter with mild right hydronephrosis. A reconstruction CT of the lumbar spine shows evidence for prior surgery without any acute fractures or other concerning findings. The patient was administered IV Zofran for nausea after return from CT imaging. He continued to refuse any analgesics. Findings were discussed with Dr. Hernandez, ED attending physician, who also evaluated the patient and helped to formulate plan of care. The case was also discussed with the patient and , discussing concerns for possible malignancy. I did recommend admission for further consultation, evaluation and management; the patient was in agreement with this plan. The case was discussed with our Department Helper, as well as the [facility] hospitalist service (Dr. Daniels), who has agreed with admission. Please see hospitalist notes for further treatment and final disposition. Administered Medications Discontinued Medications Sodium Chloride (Nss) 500 mls @ 999 mls/hr IV .Q31M STA Stop: 05/01/23 21:08 Last Infusion: 05/01/23 23:25 Dose: Infused Documented By: Admin: 05/01/23 21:05 Dose: 999 mls/hr Documented By: ROSALIND Ioversol (Optiray 320 100ml) 93 ml IV ONCE ONE Stop: 05/01/23 22:28 Last Admin: 05/01/23 22:27 Dose: 93 ml Documented By: TALITA Ondansetron HCl (Ondansetron Inj 2 Mg/Ml 2 Ml Vial) 4 mg IV NOW STA Stop: 05/01/23 23:26 Last Admin: 05/01/23 23:53 Dose: 4 mg Documented By: DANIEL Medical Decision Making Medical Records Attestation: I reviewed the patient's medical records. Home Medications was personally reviewed by me Laboratory Data Attestation: I reviewed the patient's lab results. 05/01/23 20:31 05/01/23 20:31 Lab Results 05/01/23 05/01/23 Range/Units 20:31 21:52 WBC 8.75 (4.8-10.8) K/ul RBC 4.22 L (4.70-6.10) M/uL Hgb 12.7 L (14.0-18.0) g/dl Hct 38.3 L (42.0-52.0) % MCV 90.8 (80.0-100.0) fL MCH 30.1 (25.0-34.0) pg MCHC 33.2 (32.0-36.0) g/dL RDW Std Deviation 49.1 H (36.4-46.3) fL RDW Coeff of Vamsi 15.0 H (11.5-14.5) % Plt Count 165 (130-400) K/uL MPV 8.7 L (9.4-12.4) fL Immature Gran % (Auto) 0.2 % Neut % (Auto) 69.8 % Lymph % (Auto) 14.6 % [place]verse % (Auto) 11.1 % Eos % (Auto) 3.8 % Baso % (Auto) 0.5 % Neut # (Auto) 6.11 (1.40-6.50) K/uL Lymph # (Auto) 1.28 (1.20-3.40) K/uL [place] # (Auto) 0.97 H (0.11-0.59) K/uL Eos # (Auto) 0.33 (0.00-0.50) K/uL Baso # (Auto) 0.04 (0.00-0.20) K/uL Immature Gran # (Auto) 0.02 (0.01-0.20) K/uL Sodium 137 (136-145) mmol/L Potassium 4.0 (3.5-5.1) mmol/L Chloride 105 (98-107) mmol/L Carbon Dioxide 27 (21-32) mmol/L Anion Gap 5 (3-11) BUN 21 (6-23) mg/dl Creatinine 1.48 H (0.6-1.4) mg/dl Est Cr Clr Drug Dosing 41.3 ml/min Est GFR ( Amer) 51.4 ml/min Est GFR (Non-Af Amer) 44.4 ml/min BUN/Creatinine Ratio 14.2 (10-20) Glucose 113 H (70-99(Fasting)) mg/dl Calcium 8.6 (8.6-10.3) mg/dl Total Bilirubin 0.9 (0.2-1.0) mg/dl AST 22 (13-39) U/L ALT 12 (7-52) U/L Alkaline Phosphatase 56 (34-104) U/L Total Protein 7.2 (6.0-8.3) gm/dl Albumin 4.2 (3.4-5.0) gm/dl Globulin 3.0 (2.5-4.0) gm/dl Albumin/Globulin Ratio 1.4 (0.9-2) Lipase 28 (11-82) U/L Urine Color Yellow Urine Appearance Clear (Clear) Urine pH 7.5 (4.5-7.5) Ur Specific [place] 1.023 (1.000-1.030) Urine Protein Trace H (Negative) Urine Glucose (UA) Negative (Negative) Urine Ketones Negative (Negative) Urine Blood Negative (Negative) Urine Nitrite Negative (Negative) Urine Bilirubin Negative (Negative) Urine Urobilinogen Negative (Negative) Ur Leukocyte Esterase Trace H (Negative) Urine WBC (Auto) 10-30 H (0-5) /hpf Urine RBC (Auto) 0-4 (0-4) /hpf U Hyaline Cast (Auto) 1-5 (0-5) /lpf U Epithel Cells (Auto) 10-20 H (0-5) /lpf Urine Bacteria (Auto) Negative (Negative) Imaging Data Attestation: I personally reviewed and interpreted this imaging study as follows: My Impression: My interpretation of a CT with IV contrast of the abdomen and pelvis shows multiple retroperitoneal lymph nodes, as well as bulky right pelvic sidewall adenopathy, concerning for primary malignancy such as lymphoma or testicular cancer. Patient is also noted to have partial obstruction of the right ureter with mild right hydronephrosis. My interpretation of a reconstruction CT of the lumbar spine shows evidence for prior surgery, without evidence for fractures or other concerning bony lesions. Radiologist reports were also reviewed with concurrence. Radiologist's Impression: Abdomen/Pelvis CT 05/01/23 20:40 Exam(s): CT ABDOMEN + PELVIS With Contrast IV Amt: 93 ml optiray 320 EXAM: CT Abdomen and Pelvis With Intravenous Contrast CLINICAL HISTORY: Reason for exam: Lower abd pain. TECHNIQUE: Axial computed tomography images of the abdomen and pelvis with intravenous contrast. Automated exposure control was utilized for the study. A dose lowering technique was utilized adhering to the principles of ALARA. CONTRAST: Patient received 93 ml optiray 320 of IV contrast COMPARISON: No relevant prior studies available. FINDINGS: Lung bases: Unremarkable. No mass. No consolidation. ABDOMEN: Liver: Hepatic cysts. Gallbladder and bile ducts: Cholelithiasis. No ductal dilation. Pancreas: Unremarkable. No mass. No ductal dilation. Spleen: Unremarkable. No splenomegaly. Adrenals: Unremarkable. No mass. Kidneys and ureters: There is partial obstruction of the RIGHT ureter with mild RIGHT hydronephrosis and delayed nephrogram. Stomach and bowel: Diaphragmatic hernia which contains a proximal stomach in the retrocardiac position. Cecum, and lumbar spine CT scan for additional findings. No obstruction. No mucosal thickening. PELVIS: Appendix: No findings to suggest acute appendicitis. Bladder: Unremarkable. No mass. Reproductive: Unremarkable as visualized. ABDOMEN and PELVIS: Intraperitoneal space: Unremarkable. No free air. No significant fluid collection. Bones/joints: Degenerative changes of the spine. Soft tissues: Small fat-containing RIGHT inguinal hernia. Vasculature: Atherosclerotic changes of the aorta. No abdominal aortic aneurysm. Lymph nodes: Multiple enlarged retroperitoneal lymph nodes which are predominately located in the retrocaval and para-aortic lymph node stations. These extend into the pelvis with bulky pelvic RIGHT sidewall adenopathy. Correlate for primary malignancy such as lymphoma or testicular cancer. IMPRESSION: 1. Multiple enlarged retroperitoneal lymph nodes which are predominately located in the retrocaval and para-aortic lymph node stations. These extend into the pelvis with bulky pelvic RIGHT sidewall adenopathy. Correlate for primary malignancy such as lymphoma or testicular cancer. 2. Partial obstruction of the RIGHT ureter with mild RIGHT hydronephrosis and delayed nephrogram. 3. Diaphragmatic hernia which contains a proximal stomach in the retrocardiac position. Electronically signed by: Jori Nguyen MD 05/02/23 00:[address] 05/01/23 20:44 Exam(s): CT L SPINE With Contrast IV Amt: 93 ml optiray 320 EXAM: CT Lumbar Spine With Intravenous Contrast CLINICAL HISTORY: Reason for exam: LBP - RECON please. TECHNIQUE: Axial computed tomography images of the lumbar spine with intravenous contrast. Automated exposure control was utilized for the study. A dose lowering technique was utilized adhering to the principles of ALARA. CONTRAST: Patient received 93 ml optiray 320 of IV contrast COMPARISON: No relevant prior studies available. FINDINGS: The vertebral body heights are maintained. The craniocervical junction is intact. The atlanto-dens interval is maintained. The dens is intact. Posterior fusion at L2-L4 with paired pedicle screws in parallel spinal stabilization rods. No screw fracture or CT evidence of hardware failure. Grade 2 anterolisthesis of L5 on S1 measures 1.5 cm. Posterior decompression/laminectomies at L2-S1. Multilevel cervical spondylosis and degenerative disc disease. Straightening of the cervical lordosis. The unenhanced neck soft tissues are grossly unremarkable. The visualized lung apices are grossly clear. IMPRESSION: No lumbar spine fracture. Grade 2 anterolisthesis of L5 on S1 measures 1.5 cm. Posterior fusion at L2-L4 with paired pedicle screws in parallel spinal stabilization rods. No CT evidence of hardware failure. Posterior decompression/laminectomies at L2-S1. Electronically signed by: Jori Nguyen MD 05/02/23 00:05 AM MDM Narrative See ED Course section for further details of today's visit. The patient presents the emergency department with complaint of lower back and right flank pain, reporting that the pain feels similar to pain that he has had before in the past with a kidney stone. His clinical examination, however, also showed abdominal tenderness to palpation, therefore CT with IV contrast was ordered, showing multiple retroperitoneal lymph nodes and bulky right pelvic wall adenopathy, concerning for primary malignancy such as lymphoma or testicular cancer. Patient also has a mild right ureteral obstruction with mild hydronephrosis, likely secondary to lymphadenopathy. No obvious stones are appreciated. Laboratory studies at this point do not show any significant abnormalities. The patient has agreed to hospitalist evaluation, including likely oncology and urology consultations. Impression Acute unilateral obstructive uropathy, Lymphadenopathy, retroperitoneal, Pelvic lymphadenopathy Discharge Plan Visit Data Chief Complaint: Back Injury/Pain Stated Complaint: LOWER BACK PAIN, HISTORY KIDNEY STONES ED Provider: Papi Hernandez ED Midlevel Provider: Altaf Martin Discharge Problem: Acute unilateral obstructive uropathy, Lymphadenopathy, retroperitoneal, Pelvic lymphadenopathy Forms Stand Alone Forms: [facility] Prescriptions Prescriptions: No Action ketoconazole 2 % cream 1 applic TOP BID Qty: 60 1RF Rx Instructions: Apply to areas of the hand and feet twice daily 2-3 weeks as needed for flaring. celecoxib [Celebrex] 200 mg Capsule 200 mg PO QAM aspirin 81 mg Tablet,Delayed Release (Dr/Ec) 81 mg PO QAM tramadol 50 mg Tablet 50 mg PO Q4H PRN (Reason: Pain) acetaminophen [Tylenol Arthritis Pain] 650 mg Tablet Extended Release 650 mg PO Q12H PRN (Reason: Pain) ranitidine HCl 150 mg Tablet 150 mg PO BID vitamin B complex Tablet 1 tab PO QPM folic acid 1 mg Tablet 1 mg PO BID vitamin E 400 unit Capsule 400 unit PO QPM rosuvastatin 20 mg Tablet 20 mg PO QPM metoprolol tartrate 25 mg Tablet 12.5 mg PO BID coQ10 (ubiquinol) 200 mg Capsule 200 mg PO QPM nitroglycerin 0.4 mg Tablet, Sublingual 0.4 mg sublingual UD PRN (Reason: Chest Pain) Xeljanz XR 11 mg Tablet Extended Release 24 Hr 11 mg PO QAM oxycodone 5 mg Tablet 5 mg PO Q4H PRN (Reason: Pain, Severe) Qty: 30 0RF Referrals Referrals: Isaak Castro DO [Primary Care Provider] -
[2023-05-01 20:57] LABS: Basophils # (auto) 0.04 K/uL (0.00-0.20); Basophils % (auto) 0.5 %; Eosinophils # (auto) 0.33 K/uL (0.00-0.50); Eosinophils % (auto) 3.8 %; Hematocrit (blood only) 38.3 % (42.0-52.0); Hemoglobin 12.7 g/dl (14.0-18.0); Immature Granulocytes # (auto) 0.02 K/uL (0.01-0.20); Immature Granulocytes % (auto) 0.2 %; Lymphocytes # (auto) 1.28 K/uL (1.20-3.40); Lymphocytes % (auto) 14.6 %; Mean Corpuscular Hemoglobin 30.1 pg (25.0-34.0); Mean Corpuscular Hgb Conc 33.2 g/dL (32.0-36.0); Mean Corpuscular Volume 90.8 fL (80.0-100.0); Mean Platelet Volume 8.7 fL (9.4-12.4); Monocytes # (auto) 0.97 K/uL (0.11-0.59); Monocytes % (auto) 11.1 %; Neutrophils # (auto) 6.11 K/uL (1.40-6.50); Neutrophils % (auto) 69.8 %; Platelet Count 165 K/uL (130-400); RDW Standard Deviation 49.1 fL (36.4-46.3); Red Blood Count 4.22 M/uL (4.70-6.10); White Blood Count 8.75 K/ul (4.8-10.8)
[2023-05-01 21:14] LABS: Albumin Globulin Ratio 1.4 (0.9-2); Albumin Level 4.2 gm/dl (3.4-5.0); BUN Creatinine Ratio 14.2 (10-20); Bilirubin,Total 0.9 mg/dl (0.2-1.0); Calcium 8.6 mg/dl (8.6-10.3); Creatinine Clr Calc Pharmacy 41.3 ml/min; Est GFR (African American) 51.4 ml/min; Est GFR (Non-African American) 44.4 ml/min; Total Protein 7.2 gm/dl (6.0-8.3)
[2023-05-01 22:06] LABS: Appearance Urine Clear (Clear); Bacteria Urine Automated Negative (Negative); Bilirubin Urine Negative (Negative); Blood Urine Negative (Negative); Color Urine Yellow; Glucose Urine UA Negative (Negative); Ketones Urine Negative (Negative); Leukocyte Esterase Urine Trace (Negative); Nitrite Urine Negative (Negative); RBC Urine Automated 0-4 /hpf (0-4); Specific Gravity Urine 1.023 (1.000-1.030); Urobilinogen Urine Negative (Negative); pH Urine 7.5 (4.5-7.5)
[2023-05-01 22:07] LABS: Protein Urine Trace (Negative)
[2023-05-01] MEDS ORDERED: OPTIRAY 320 100ml IV ONE (22:27)
[2023-05-01] MEDS ORDERED: ONDANSETRON INJ 2 MG/ML 2 ML VIAL IV STA (23:25)
--- NOTE | 2023-05-01 23:45 | Emergency Department Note ---
ED Visit Note Patient was seen and evaluated at the bedside w/ Chuck Martin PA-C. Please see their note for history, physical, details, and disposition. Patient presented due to concern for lower abdominal pain. The patient does have lymphadenopathy concerning for lymphoma versus prostate cancer. Patient was informed of the findings and is amenable to staying in hospital for further evaluation and treatment. .
--- NOTE | 2023-05-02 00:07 | CT Scan Report ---
Exam(s): CT L SPINE With Contrast IV Amt: 93 ml optiray 320 EXAM: CT Lumbar Spine With Intravenous Contrast CLINICAL HISTORY: Reason for exam: LBP - RECON please. TECHNIQUE: Axial computed tomography images of the lumbar spine with intravenous contrast. Automated exposure control was utilized for the study. A dose lowering technique was utilized adhering to the principles of ALARA. CONTRAST: Patient received 93 ml optiray 320 of IV contrast COMPARISON: No relevant prior studies available. FINDINGS: The vertebral body heights are maintained. The craniocervical junction is intact. The atlanto-dens interval is maintained. The dens is intact. Posterior fusion at L2-L4 with paired pedicle screws in parallel spinal stabilization rods. No screw fracture or CT evidence of hardware failure. Grade 2 anterolisthesis of L5 on S1 measures 1.5 cm. Posterior decompression/laminectomies at L2-S1. Multilevel cervical spondylosis and degenerative disc disease. Straightening of the cervical lordosis. The unenhanced neck soft tissues are grossly unremarkable. The visualized lung apices are grossly clear. IMPRESSION: No lumbar spine fracture. Grade 2 anterolisthesis of L5 on S1 measures 1.5 cm. Posterior fusion at L2-L4 with paired pedicle screws in parallel spinal stabilization rods. No CT evidence of hardware failure. Posterior decompression/laminectomies at L2-S1. Electronically signed by: Jori Nguyen MD 05/02/23 00:05 AM
--- NOTE | 2023-05-02 00:08 | CT Scan Report ---
Exam(s): CT ABDOMEN + PELVIS With Contrast IV Amt: 93 ml optiray 320 EXAM: CT Abdomen and Pelvis With Intravenous Contrast CLINICAL HISTORY: Reason for exam: Lower abd pain. TECHNIQUE: Axial computed tomography images of the abdomen and pelvis with intravenous contrast. Automated exposure control was utilized for the study. A dose lowering technique was utilized adhering to the principles of ALARA. CONTRAST: Patient received 93 ml optiray 320 of IV contrast COMPARISON: No relevant prior studies available. FINDINGS: Lung bases: Unremarkable. No mass. No consolidation. ABDOMEN: Liver: Hepatic cysts. Gallbladder and bile ducts: Cholelithiasis. No ductal dilation. Pancreas: Unremarkable. No mass. No ductal dilation. Spleen: Unremarkable. No splenomegaly. Adrenals: Unremarkable. No mass. Kidneys and ureters: There is partial obstruction of the RIGHT ureter with mild RIGHT hydronephrosis and delayed nephrogram. Stomach and bowel: Diaphragmatic hernia which contains a proximal stomach in the retrocardiac position. Cecum, and lumbar spine CT scan for additional findings. No obstruction. No mucosal thickening. PELVIS: Appendix: No findings to suggest acute appendicitis. Bladder: Unremarkable. No mass. Reproductive: Unremarkable as visualized. ABDOMEN and PELVIS: Intraperitoneal space: Unremarkable. No free air. No significant fluid collection. Bones/joints: Degenerative changes of the spine. Soft tissues: Small fat-containing RIGHT inguinal hernia. Vasculature: Atherosclerotic changes of the aorta. No abdominal aortic aneurysm. Lymph nodes: Multiple enlarged retroperitoneal lymph nodes which are predominately located in the retrocaval and para-aortic lymph node stations. These extend into the pelvis with bulky pelvic RIGHT sidewall adenopathy. Correlate for primary malignancy such as lymphoma or testicular cancer. IMPRESSION: 1. Multiple enlarged retroperitoneal lymph nodes which are predominately located in the retrocaval and para-aortic lymph node stations. These extend into the pelvis with bulky pelvic RIGHT sidewall adenopathy. Correlate for primary malignancy such as lymphoma or testicular cancer. 2. Partial obstruction of the RIGHT ureter with mild RIGHT hydronephrosis and delayed nephrogram. 3. Diaphragmatic hernia which contains a proximal stomach in the retrocardiac position. Electronically signed by: Jori Nguyen MD 05/02/23 00:07 AM
--- NOTE | 2023-05-02 01:43 | History & Physical Report ---
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 Heparin subcu Full code Patient partner requesting updates from providers. Ms. Smita Ennis, contact #[phone]. Text document was generated using Penemarie K [employer] voice recognition software. It may contain grammatical or spelling errors. Kindly contact undersigned for clarification of any documentation item in question. History of Present Illness Chief Complaint: Abdominal pain, weight loss Primary Care Provider: Isaak Castro DO History obtained from patient, family, and records. Medical history significant for chronic diastolic failure (EF 55%, TTE 2022), valvular heart disease (mild MR/mild AR), CAD status post CABG, tachybradycardia syndrome/PAF status post BOLIVAR clip/maze procedure as per records, aortic root enlargement as per records, paroxysmal V. tach, COPD, pulmonary hypertension, hyperlipidemia, chronic anemia (baseline hemoglobin of 13), rheumatoid arthritis on methotrexate and Orencia, chronic back pain status post surgery, GERD, colonic diverticulosis, urolithiasis, past tobacco abuse. Last confinement February 2019 under orthopedic spine service for lumbar spinal stenosis status post elective decompression surgery. Six months history of intermittent right-sided abdominal pain going to the back. Patient was not sure if pain was from arthritis or from outpatient periodic Orencia infusions. Almost 20 pound involuntary weight loss in the last month. No fever, no chills. No hematuria, no hematochezia. No chest pain, no SOB, no unusual cough symptoms. Occasional groin discomfort. No new lumps or night sweats. Patient brought to ER by family for evaluation. 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 Allergies Allergy/AdvReac Type Severity Reaction Status Date / Time adalimumab [From Humira] Allergy Intermediate WAS NOT Verified 04/21/23 10:25 EFFECTED FOR TREATMENT Home Medications Medication Instructions Recorded Confirmed Type acetaminophen 650 mg 650 mg PO Q12H PRN Pain 01/25/19 04/21/23 History tablet,extended release (Tylenol Arthritis Pain) aspirin 81 mg tablet,delayed 81 mg PO QAM 01/25/19 04/21/23 History release celecoxib 200 mg capsule (Celebrex) 200 mg PO QAM 01/25/19 04/21/23 History coQ10 (ubiquinol) 200 mg capsule 200 mg PO QPM 01/25/19 04/21/23 History folic acid 1 mg tablet 1 mg PO BID 01/25/19 04/21/23 History metoprolol tartrate 25 mg tablet 12.5 mg PO BID 01/25/19 04/21/23 History nitroglycerin 0.4 mg sublingual 0.4 mg sublingual UD PRN Chest Pain 01/25/19 04/21/23 History tablet ranitidine HCl 150 mg tablet 150 mg PO BID 01/25/19 04/21/23 History rosuvastatin 20 mg tablet 20 mg PO QPM 01/25/19 04/21/23 History tofacitinib 11 mg tablet,extended 11 mg PO QAM 01/25/19 04/21/23 History release 24 hr (Xeljanz XR) tramadol 50 mg tablet 50 mg PO Q4H PRN Pain 01/25/19 04/21/23 History vitamin B complex 1 tab PO QPM 01/25/19 04/21/23 History vitamin E 268 mg (400 unit) capsule 400 unit PO QPM 01/25/19 04/21/23 History oxycodone 5 mg tablet 5 mg PO Q4H PRN Pain, Severe #30 02/28/19 04/21/23 Rx tabs ketoconazole 2 % topical cream 1 applic topical BID #60 grams 11/01/22 04/21/23 Rx Past Med/Surg History Medical History CAD (coronary artery disease) s/p CABG 09/2017 History of ischemic cardiomyopathy 2/2 sustained v. tach. Interval improvement in EF. Spinal stenosis Gout Osteoarthritis BPH (benign prostatic hyperplasia) Rheumatoid arthritis GERD (gastroesophageal reflux disease) Atrial fibrillation s/p Maze procedure/pulm vein isolation/BOLIVAR clip 09/2017. No known recurrence of Afib since. Myocardial Infarction 1986 Hypertension Hyperlipidemia Chronic obstructive pulmonary disease Surgical History History of carpal tunnel release Fusion of spine History of tooth extraction History of tonsillectomy History of coronary artery bypass graft 09/2017 X 3 VESSELS (GARCIA-LAD, SVG-PDA, SVG-OM2) AT [facility] History of cardiac cath 1986 NO STENTS 2017 NO STENTS Family History Brother Family history of diabetes mellitus Grandmother (Maternal) Family history of diabetes mellitus Social History Smoking Status: Former smoker Tobacco Type: Cigarettes Second Hand Exposure: No; Do You Dip or Chew Tobacco: No; Hx Alcohol Use: No Hx Substance Use: No Preferred Language: Macedonian Communication Ability: Effective Visual Impairment: No Limitations Machinist General Required: No Beliefs That Will Affect Care: None marital status: Current Living Situation: Spouse Other Information That Helps Us Care for You: No Feels Safe at Home: Yes Safety Concerns: Feels Safe At This Time Assistive Devices: None Review of Systems Review of Systems: As per HPI, all other systems reviewed and negative Physical Exam 2 Physical Exam: GENERAL: Comfortable, pleasant, slightly hard of hearing, no respiratory distress SKIN: Pallor, warm HEENT: Alopecia, pale, [place] palpebral conjunctivae, no ptosis, dry buccal mucosa NECK : Supple, no tenderness CHEST : Decreased breath sounds, no tenderness HEART : RRR, no obvious murmurs ABDOMEN: Some distention, minimal right-sided abdominal tenderness RECTAL : Intact sphincter, brown stool (FOBT negative) EXTREMITIES : Minimal LE swelling/tenderness, no other conspicuous deformities noted NEUROLOGIC : Coherent, no facial asymmetry, slightly hard of hearing, no other gross focality Results & Data Results & Data Vital Signs (Past 12 Hours) Vital Signs Temp Pulse Pulse Resp BP BP Pulse Ox 05/01/23 23:53 76 18 110/75 96 05/01/23 22:55 87 16 181/94 H 95 05/01/23 20:17 36.3 C L 78 20 155/80 H 95 O2 Del Method 05/01/23 23:53 Room Air 05/01/23 22:55 05/01/23 20:17 Room Air Laboratory Results Laboratory Results WBC 8.75 K/ul (4.8-10.8) 05/01/23 20: RBC 4.22 M/uL (4.70-6.10) L 05/01/23 20:31 Hgb 12.7 g/dl (14.0-18.0) L 05/01/23 20:31 Hct 38.3 % (42.0-52.0) L 05/01/23 20:31 MCV 90.8 fL (80.0-100.0) 05/01/23 20: MCH 30.1 pg (25.0-34.0) 05/01/23 20: MCHC 33.2 g/dL (32.0-36.0) 05/01/23 20:31 RDW Std Deviation 49.1 fL (36.4-46.3) H 05/01/23 20:31 RDW Coeff of Vamsi 15.0 % (11.5-14.5) H 05/01/23 20:31 Plt Count 165 K/uL (130-400) 05/01/23 20:31 MPV 8.7 fL (9.4-12.4) L 05/01/23 20:31 Immature Gran % (Auto) 0.2 % 05/01/23 20: Neut % (Auto) 69.8 % 05/01/23 20: Lymph % (Auto) 14.6 % 05/01/23 20: Young % (Auto) 11.1 % 05/01/23 20: Eos % (Auto) 3.8 % 05/01/23 20:31 Baso % (Auto) 0.5 % 05/01/23 20: Neut # (Auto) 6.11 K/uL (1.40-6.50) 05/01/23 20:31 Lymph # (Auto) 1.28 K/uL (1.20-3.40) 05/01/23 20:31 Young # (Auto) 0.97 K/uL (0.11-0.59) H 05/01/23 20:31 Eos # (Auto) 0.33 K/uL (0.00-0.50) 05/01/23 20: Baso # (Auto) 0.04 K/uL (0.00-0.20) 05/01/23 20: Immature Gran # (Auto) 0.02 K/uL (0.01-0.20) 05/01/23 20:31 Sodium 137 mmol/L (136-145) 05/01/23 20: Potassium 4.0 mmol/L (3.5-5.1) 05/01/23 20: Chloride 105 mmol/L (98-107) 05/01/23 20: Carbon Dioxide 27 mmol/L (21-32) 05/01/23 20:31 Anion Gap 5 (3-11) 05/01/23 20:31 BUN 21 mg/dl (6-23) 05/01/23 20: Creatinine 1.48 mg/dl (0.6-1.4) H 05/01/23 20:31 Est Cr Clr Drug Dosing 41.3 ml/min 05/01/23 20:31 Est GFR ( Amer) 51.4 ml/min 05/01/23 20: Est GFR (Non-Af Amer) 44.4 ml/min 05/01/23 20: BUN/Creatinine Ratio 14.2 (10-20) 05/01/23 20: Glucose 113 mg/dl (70-99(Fasting)) H 05/01/23 20: Calcium 8.6 mg/dl (8.6-10.3) 05/01/23 20: Total Bilirubin 0.9 mg/dl (0.2-1.0) 05/01/23 20:31 AST 22 U/L (13-39) 05/01/23 20:31 ALT 12 U/L (7-52) 05/01/23 20: Alkaline Phosphatase 56 U/L (34-104) 05/01/23 20:31 Total Protein 7.2 gm/dl (6.0-8.3) 05/01/23 20:31 Albumin 4.2 gm/dl (3.4-5.0) 05/01/23 20: Globulin 3.0 gm/dl (2.5-4.0) 05/01/23 20:31 Albumin/Globulin Ratio 1.4 (0.9-2) 05/01/23 20:31 Lipase 28 U/L (11-82) 05/01/23 20:31 Urine Color Yellow 05/01/23 21:52 Urine Appearance Clear (Clear) 05/01/23 21:52 Urine pH 7.5 (4.5-7.5) 05/01/23 21:52 Ur Specific [place] 1.023 (1.000-1.030) 05/01/23 21:52 Urine Protein Trace (Negative) H 05/01/23 21:52 Urine Glucose (UA) Negative (Negative) 05/01/23 21:52 Urine Ketones Negative (Negative) 05/01/23 21:52 Urine Blood Negative (Negative) 05/01/23 21:52 Urine Nitrite Negative (Negative) 05/01/23 21:52 Urine Bilirubin Negative (Negative) 05/01/23 21:52 Urine Urobilinogen Negative (Negative) 05/01/23 21:52 Ur Leukocyte Esterase Trace (Negative) H 05/01/23 21:52 Urine WBC (Auto) 10-30 /hpf (0-5) H 05/01/23 21:52 Urine RBC (Auto) 0-4 /hpf (0-4) 05/01/23 21:52 U Hyaline Cast (Auto) 1-5 /lpf (0-5) 05/01/23 21:52 U Epithel Cells (Auto) 10-20 /lpf (0-5) H 05/01/23 21:52 Urine Bacteria (Auto) Negative (Negative) 05/01/23 21:52 Impressions Abdomen/Pelvis CT 05/01/23 20:40 Exam(s): CT ABDOMEN + PELVIS With Contrast IV Amt: 93 ml optiray 320 EXAM: CT Abdomen and Pelvis With Intravenous Contrast CLINICAL HISTORY: Reason for exam: Lower abd pain. TECHNIQUE: Axial computed tomography images of the abdomen and pelvis with intravenous contrast. Automated exposure control was utilized for the study. A dose lowering technique was utilized adhering to the principles of ALARA. CONTRAST: Patient received 93 ml optiray 320 of IV contrast COMPARISON: No relevant prior studies available. FINDINGS: Lung bases: Unremarkable. No mass. No consolidation. ABDOMEN: Liver: Hepatic cysts. Gallbladder and bile ducts: Cholelithiasis. No ductal dilation. Pancreas: Unremarkable. No mass. No ductal dilation. Spleen: Unremarkable. No splenomegaly. Adrenals: Unremarkable. No mass. Kidneys and ureters: There is partial obstruction of the RIGHT ureter with mild RIGHT hydronephrosis and delayed nephrogram. Stomach and bowel: Diaphragmatic hernia which contains a proximal stomach in the retrocardiac position. Cecum, and lumbar spine CT scan for additional findings. No obstruction. No mucosal thickening. PELVIS: Appendix: No findings to suggest acute appendicitis. Bladder: Unremarkable. No mass. Reproductive: Unremarkable as visualized. ABDOMEN and PELVIS: Intraperitoneal space: Unremarkable. No free air. No significant fluid collection. Bones/joints: Degenerative changes of the spine. Soft tissues: Small fat-containing RIGHT inguinal hernia. Vasculature: Atherosclerotic changes of the aorta. No abdominal aortic aneurysm. Lymph nodes: Multiple enlarged retroperitoneal lymph nodes which are predominately located in the retrocaval and para-aortic lymph node stations. These extend into the pelvis with bulky pelvic RIGHT sidewall adenopathy. Correlate for primary malignancy such as lymphoma or testicular cancer. IMPRESSION: 1. Multiple enlarged retroperitoneal lymph nodes which are predominately located in the retrocaval and para-aortic lymph node stations. These extend into the pelvis with bulky pelvic RIGHT sidewall adenopathy. Correlate for primary malignancy such as lymphoma or testicular cancer. 2. Partial obstruction of the RIGHT ureter with mild RIGHT hydronephrosis and delayed nephrogram. 3. Diaphragmatic hernia which contains a proximal stomach in the retrocardiac position. Electronically signed by: Jori Nguyen MD 05/02/23 00:[address] 05/01/23 20:44 Exam(s): CT L SPINE With Contrast IV Amt: 93 ml optiray 320 EXAM: CT Lumbar Spine With Intravenous Contrast CLINICAL HISTORY: Reason for exam: LBP - RECON please. TECHNIQUE: Axial computed tomography images of the lumbar spine with intravenous contrast. Automated exposure control was utilized for the study. A dose lowering technique was utilized adhering to the principles of ALARA. CONTRAST: Patient received 93 ml optiray 320 of IV contrast COMPARISON: No relevant prior studies available. FINDINGS: The vertebral body heights are maintained. The craniocervical junction is intact. The atlanto-dens interval is maintained. The dens is intact. Posterior fusion at L2-L4 with paired pedicle screws in parallel spinal stabilization rods. No screw fracture or CT evidence of hardware failure. Grade 2 anterolisthesis of L5 on S1 measures 1.5 cm. Posterior decompression/laminectomies at L2-S1. Multilevel cervical spondylosis and degenerative disc disease. Straightening of the cervical lordosis. The unenhanced neck soft tissues are grossly unremarkable. The visualized lung apices are grossly clear. IMPRESSION: No lumbar spine fracture. Grade 2 anterolisthesis of L5 on S1 measures 1.5 cm. Posterior fusion at L2-L4 with paired pedicle screws in parallel spinal stabilization rods. No CT evidence of hardware failure. Posterior decompression/laminectomies at L2-S1. Electronically signed by: Jori Nguyen MD 05/02/23 00:05 AM Scrotal ultrasound: 1. No evidence of testicular torsion or orchitis 2. Bilateral small hydrocele Diagnostic Findings Chest x-ray as per them interpretation cardiomegaly, atelectasis
[2023-05-02] MEDS ORDERED: ACETAMINOPHEN 325 MG TAB PO PRN (01:48)
[2023-05-02] MEDS ORDERED: SODIUM CHLORIDE 0.9% 1,000 ML IV ONE (01:50)
[2023-05-02] MEDS ORDERED: METOPROLOL TARTRATE 25 MG TAB PO STA (04:31)
[2023-05-02] MEDS ORDERED: METOPROLOL SUCC 25MG EXT REL TAB PO STA (04:32)
--- NOTE | 2023-05-02 05:28 | Ultrasound Report ---
Exam(s): US SCROTAL EXAM: US Scrotum CLINICAL HISTORY: Reason for exam: intermittent pain. TECHNIQUE: Real-time ultrasound of the scrotum with color Doppler and image documentation. COMPARISON: No relevant prior studies available. FINDINGS: Right testicle: There is 1 mm calcification seen in the right testicular parenchyma. No torsion. Left testicle: Left testicle measures 5.1 cm in length. No torsion. Epididymides: 6 mm x 8 mm cyst seen in the right epididymis. Left epididymis cyst measuring 7 mm in diameter. Scrotum: Small right and left hydrocele. IMPRESSION: 1. No evidence of testicular torsion or orchitis 2. Bilateral small hydrocele Electronically signed by: Jose Nicholas MD 05/02/23 05:28 AM
[2023-05-02] MEDS: HEPARIN SOD 5,000 UNIT/0.5 ML VIAL SQ SCH ×3 (05:30→23:46)
[2023-05-02 07:24] LABS: Basophils # (auto) 0.04 K/uL (0.00-0.20); Basophils % (auto) 0.5 %; Eosinophils % (auto) 1.3 %; Hemoglobin 11.6 g/dl (14.0-18.0); Immature Granulocytes # (auto) 0.03 K/uL (0.01-0.20); Immature Granulocytes % (auto) 0.4 %; Lymphocytes # (auto) 0.81 K/uL (1.20-3.40); Lymphocytes % (auto) 10.8 %; Mean Corpuscular Hemoglobin 30.1 pg (25.0-34.0); Mean Corpuscular Hgb Conc 33.1 g/dL (32.0-36.0); Mean Corpuscular Volume 90.9 fL (80.0-100.0); Mean Platelet Volume 8.8 fL (9.4-12.4); Monocytes # (auto) 0.88 K/uL (0.11-0.59); Monocytes % (auto) 11.7 %; Neutrophils # (auto) 5.66 K/uL (1.40-6.50); Neutrophils % (auto) 75.3 %; Platelet Count 146 K/uL (130-400); RDW Coefficient of Variation 15.2 % (11.5-14.5); Red Blood Count 3.85 M/uL (4.70-6.10); Reticulocyte % 1.5 % (0.5-2.0); Reticulocytes # 0.06 10^6/uL (0.02-0.10); White Blood Count 7.52 K/ul (4.8-10.8)
[2023-05-02] MEDS: PROMETHAZINE HCL 6.25 MG in SODIUM CHLORIDE 0.9% 50 ML IV PRN ×2 (07:26→18:29)
--- NOTE | 2023-05-02 07:26 | XRay Report ---
XR chest 1V portable HISTORY: 77 years-old Male renal failure acute renal failure COMPARISON: 02/12/2019 TECHNIQUE: AP view of the chest FINDINGS: Cardiac silhouette is enlarged, unchanged. Left atrial exclusion device. Prior median sternotomy. Lar ge hiatal hernia. No pneumothorax, pleural effusion or overt pulmonary edema. Mild pulmonary vascular congestion. Minimal subsegmental atelectasis/scarring. Degenerative changes of the shoulders and spi ne. IMPRESSION: 1. Cardiomegaly with pulmonary vascular congestion. 2. Large hiatal hernia. ACT 112: Negative or not required by law. The above report was generated using voice recognition software. It may contain grammatical, syntax o r spelling errors. Electronically signed by: Trevor Montgomery M.D. 05/02/2023 7:25 AM
[2023-05-02 07:39] LABS: BUN Creatinine Ratio 11.9 (10-20); Creatinine Clr Calc Pharmacy 45.6 ml/min; Potassium 4.2 mmol/L (3.5-5.1)
[2023-05-02 07:54] LABS: Thyroid Stimulating Hormone 0.968 uIu/ml (0.300-4.500)
[2023-05-02 07:59] LABS: Ferritin 39.6 ng/ml (8-388)
[2023-05-02 08:01] LABS: Folate (Folic Acid),Ser orPlas 19.06 ng/ml (>5.38)
[2023-05-02] MEDS: FAMOTIDINE 20 MG TAB PO SCH ×2 (08:06→19:37)
[2023-05-02] MEDS: ASPIRIN 81 MG ECTAB PO SCH (08:06)
[2023-05-02] MEDS: FOLIC ACID 1 MG TAB PO SCH (08:07)
[2023-05-02] MEDS: traMADol HCL 50 MG TABLET PO PRN ×2 (08:07→13:35)
[2023-05-02 09:29] LABS: INR 1.1 (0.9-1.1); Prothrombin Time 11.5 Seconds (9.0-12.0)
--- NOTE | 2023-05-02 09:39 | Urology Consultation ---
Date of Consultation May 02, 2023 Assessment & Plan (1) Acute unilateral obstructive uropathy: 77 yo M who presented to the emergency department on 05/01/2023 for evaluation of worsening lower back and right flank discomfort ongoing for a few weeks and found to have partial obstruction of the right ureter with mild right hydronephrosis and multiple enlarged retroperitoneal lymph nodes and right pelvic lymphadenopathy. - Patient is afebrile and hemodynamically stable - Today's labs - creatinine improved to 1.34, no leukocytosis - CT reviewed and discussed with patient - Discussed findings of mild right hydronephrosis due to partial obstruction of the right ureter, likely from lymphadenopathy - Flank pain has improved - No acute intervention planned at this time - Discussed consideration of right ureteral stent placement if patient develops persistent flank pain, AURELIANO, or fever - Recommend referral to IR for biopsy of enlarged lymph nodes - Recommend oncology - will follow History of Present Illness Reason for Consultation: partial obs uropathy on ct Requesting Physician: Dr. Rust Attending Physician: Lin Myers MD History of Present Illness This is a 77-year-old male with past medical history of spinal stenosis, atrial fibrillation, CAD, history of ischemic cardiomyopathy, BPH, hypertension, hyperlipidemia who presented to the emergency department on 05/01/2023 for evaluation of worsening lower back and right flank discomfort ongoing for a few weeks. On arrival, he was afebrile and hemodynamically stable. Labs reviewed and showed creatinine 1.48, WBC 8.75, hemoglobin 12.7. Urinalysis notable for 10-30 WBC, 10-20 epithelials, negative for bacteria and nitrates. CT abdomen and pelvis with contrast showed partial obstruction of the right ureter with mild right hydronephrosis and delayed nephrogram, multiple enlarged retroperitoneal lymph nodes and right pelvic lymphadenopathy noted. Scrotal ultrasound showed no evidence of testicular torsion or orchitis, bilateral small hydrocele. He was admitted to the hospital medicine service. Urology is consulted for obstructive uropathy. Patient seen and examined at bedside this morning. He is awake, and resting in bed, no apparent distress. He reports mild right flank discomfort, improved since arrival. He is voiding without difficulty. Denies nausea, vomiting, fever or chills at present. Allergies Allergy/AdvReac Type Severity Reaction Status Date / Time adalimumab [From Humira] Allergy Intermediate WAS NOT Verified 04/21/23 10:25 EFFECTED FOR TREATMENT Home Medications Medication Instructions Recorded Confirmed Type aspirin 81 mg tablet,delayed 81 mg PO QAM 01/25/19 04/21/23 History release celecoxib 200 mg capsule (Celebrex) 200 mg PO QAM 01/25/19 04/21/23 History coQ10 (ubiquinol) 200 mg capsule 200 mg PO QPM 01/25/19 04/21/23 History folic acid 1 mg tablet 1 mg PO DAILY 01/25/19 04/21/23 History rosuvastatin 20 mg tablet 20 mg PO QPM 01/25/19 04/21/23 History tramadol 50 mg tablet 50 mg PO Q4H PRN Pain 01/25/19 04/21/23 History vitamin E 268 mg (400 unit) capsule 200 unit PO DAILY 01/25/19 04/21/23 History abatacept (with maltose) 250 mg ml IV 05/02/23 History intravenous solution (Orencia (with maltose)) albuterol sulfate 90 mcg/actuation 2 puff inhalation BID PRN wheeze 05/02/23 05/02/23 History aerosol inhaler alendronate 70 mg tablet 70 mg PO WK 05/02/23 05/02/23 History famotidine 20 mg tablet 20 mg PO BID 05/02/23 05/02/23 History latanoprost 0.005 % eye drops 1 drp OPB HS 05/02/23 05/02/23 History methotrexate sodium 2.5 mg tablet 17.5 mg PO WK 05/02/23 05/02/23 History metoprolol succinate 25 mg 25 mg PO BID 05/02/23 05/02/23 History tablet,extended release 24 hr Patient History Medical History CAD (coronary artery disease) s/p CABG 09/2017 History of ischemic cardiomyopathy 2/2 sustained v. tach. Interval improvement in EF. Spinal stenosis Gout Osteoarthritis BPH (benign prostatic hyperplasia) Rheumatoid arthritis GERD (gastroesophageal reflux disease) Atrial fibrillation s/p Maze procedure/pulm vein isolation/BOLIVAR clip 09/2017. No known recurrence of Afib since. Myocardial Infarction 1986 Hypertension Hyperlipidemia Chronic obstructive pulmonary disease Surgical History History of carpal tunnel release Fusion of spine History of tooth extraction History of tonsillectomy History of coronary artery bypass graft 09/2017 X 3 VESSELS (GARCIA-LAD, SVG-PDA, SVG-OM2) AT [facility] History of cardiac cath 1986 NO STENTS 2017 NO STENTS Family History Brother Family history of diabetes mellitus Grandmother (Maternal) Family history of diabetes mellitus Social History Smoking Status: Former smoker Tobacco Type: Cigarettes Second Hand Exposure: No; Do You Dip or Chew Tobacco: No; Hx Alcohol Use: No Hx Substance Use: No Preferred Language: Azeri Communication Ability: Effective Visual Impairment: No Limitations Addictions Counselor Assistant Required: No Beliefs That Will Affect Care: None marital status: Current Living Situation: Spouse Other Information That Helps Us Care for You: No Feels Safe at Home: Yes Safety Concerns: Feels Safe At This Time Assistive Devices: None Review of Systems Review of Systems: All systems reviewed & are unremarkable except as noted in HPI & below Physical Exam Physical Exam: General: well-appearing, no acute distress HEENT: Normocephalic, mucous membranes moist Pulmonary: Nonlabored respirations Abdomen: Nondistended Extremities: Moves all 4 spontaneously Neuro: No gross deficits Psych: alert and oriented, normal mood Skin: Warm, dry, no rashes noted : No CVA tenderness Results & Data Vital Signs (Past 12 Hours) Vital Signs Temp Pulse Pulse Resp BP BP Pulse Ox 05/02/23 08:00 37.9 C H 76 21 126/82 95 05/02/23 03:45 36.7 C 90 18 162/79 H 95 05/02/23 02:17 78 19 129/74 05/01/23 23:53 76 18 110/75 96 05/01/23 22:55 87 16 181/94 H 95 O2 Del Method 05/02/23 08:00 Room Air 05/02/23 03:45 Room Air 05/02/23 02:17 Room Air 05/01/23 23:53 Room Air 05/01/23 22:55 PG Care Time/CCT Total # of Minutes Spent Total Time Spent with Patient: Total time spent is greater than 50% in coordination of care (as documented) at patient's floor/unit and/or counseling patient: Coding Level of Care Code 25005 INT INP/OBS CARE MIN Diagnoses Acute unilateral obstructive uropathy N13.9
[2023-05-02] MEDS ORDERED: fentaNYL citrate PF 100 MCG/2 ML VIAL ONE (12:20)
--- NOTE | 2023-05-02 14:05 | Oncology Consultation ---
Date of Consultation May 02, 2023 Assessment & Plan (1) Pelvic lymphadenopathy: (2) Lymphadenopathy, retroperitoneal: (3) ARF (acute renal failure): Plan -Recommend obtaining CT chest for full staging as well as to evaluate for lymphadenopathy/metastatic disease in the chest. -Follow-up on pathology from retroperitoneal lymph node core biopsy. If this shows lymphoma, he will need PET/CT and bone marrow biopsy. Thank you for this consult. Oncology will continue following patient while in the hospital. 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 tach, COPD, pulmonary hypertension, hyperlipidemia, chronic anemia (baseline hemoglobin of 13), rheumatoid arthritis on methotrexate and Orencia, chronic back pain status post surgery, GERD, colonic diverticulosis. He presented to the ER at [facility] with complaints of worsening right-sided abdominal pain radiating to the back as well as unintentional weight loss. Labs revealed mild anemia with hemoglobin of 12.7, hematocrit of 38.3 and slightly elevated creatinine of 1.4. CT abdomen and pelvis revealed multiple enlarged retroperitoneal lymph nodes which are predominately located in the retrocaval and para-aortic lymph node stations extending into the pelvis with bulky pelvic RIGHT sidewall adenopathy, partial obstruction of the RIGHT ureter with mild RIGHT hydronephrosis and delayed nephrogram and Diaphragmatic hernia which contains a proximal stomach in the retrocardiac position. Ultrasound of scrotum obtained today which was obtained today was unremarkable. He was evaluated by urology for mild right hydronephrosis who recommended observation. Unfortunately, patient was unavailable at the time of today's visit as he had gone for core biopsy of retroperitoneal lymph node. I was however able to meet his partner of more than 40 years who agreed with above history Allergies Allergy/AdvReac Type Severity Reaction Status Date / Time adalimumab [From Humira] Allergy Intermediate WAS NOT Verified 04/21/23 10:25 EFFECTED FOR TREATMENT Home Medications Medication Instructions Recorded Confirmed Type aspirin 81 mg tablet,delayed 81 mg PO QAM 01/25/19 04/21/23 History release celecoxib 200 mg capsule (Celebrex) 200 mg PO QAM 01/25/19 04/21/23 History coQ10 (ubiquinol) 200 mg capsule 200 mg PO QPM 01/25/19 04/21/23 History folic acid 1 mg tablet 1 mg PO DAILY 01/25/19 04/21/23 History rosuvastatin 20 mg tablet 20 mg PO QPM 01/25/19 04/21/23 History tramadol 50 mg tablet 50 mg PO Q4H PRN Pain 01/25/19 04/21/23 History vitamin E 268 mg (400 unit) capsule 200 unit PO DAILY 01/25/19 04/21/23 History abatacept (with maltose) 250 mg ml IV 05/02/23 History intravenous solution (Orencia (with maltose)) albuterol sulfate 90 mcg/actuation 2 puff inhalation BID PRN wheeze 05/02/23 05/02/23 History aerosol inhaler alendronate 70 mg tablet 70 mg PO WK 05/02/23 05/02/23 History famotidine 20 mg tablet 20 mg PO BID 05/02/23 05/02/23 History latanoprost 0.005 % eye drops 1 drp OPB HS 05/02/23 05/02/23 History methotrexate sodium 2.5 mg tablet 17.5 mg PO WK 05/02/23 05/02/23 History metoprolol succinate 25 mg 25 mg PO BID 05/02/23 05/02/23 History tablet,extended release 24 hr Patient History Medical History CAD (coronary artery disease) s/p CABG 09/2017 History of ischemic cardiomyopathy 2/2 sustained v. tach. Interval improvement in EF. Spinal stenosis Gout Osteoarthritis BPH (benign prostatic hyperplasia) Rheumatoid arthritis GERD (gastroesophageal reflux disease) Atrial fibrillation s/p Maze procedure/pulm vein isolation/BOLIVAR clip 09/2017. No known recurrence of Afib since. Myocardial Infarction 1986 Hypertension Hyperlipidemia Chronic obstructive pulmonary disease Surgical History History of carpal tunnel release Fusion of spine History of tooth extraction History of tonsillectomy History of coronary artery bypass graft 09/2017 X 3 VESSELS (GARCIA-LAD, SVG-PDA, SVG-OM2) AT [facility] History of cardiac cath 1986 NO STENTS 2017 NO STENTS Family History Brother Family history of diabetes mellitus Grandmother (Maternal) Family history of diabetes mellitus Social History Smoking Status: Former smoker Tobacco Type: Cigarettes Second Hand Exposure: No; Do You Dip or Chew Tobacco: No; Hx Alcohol Use: No Hx Substance Use: No Preferred Language: Peruvian Communication Ability: Effective Visual Impairment: No Limitations Surveyor Chain 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 Required: No Beliefs That Will Affect Care: None marital status: Current Living Situation: Spouse Other Information That Helps Us Care for You: No Feels Safe at Home: Yes Safety Concerns: Feels Safe At This Time Assistive Devices: Walker Results & Data Vital Signs (Past 12 Hours) Vital Signs Temp Pulse Pulse Pulse Resp BP BP 05/02/23 13:50 36.8 C 65 24 128/72 05/02/23 12:01 37.1 C 70 26 H 128/76 05/02/23 08:00 37.9 C H 76 21 126/82 05/02/23 03:45 36.7 C 90 18 162/79 H 05/02/23 02:17 78 19 129/74 Pulse Ox O2 Del Method 05/02/23 13:50 95 Room Air 05/02/23 12:01 94 Room Air 05/02/23 08:00 95 Room Air 05/02/23 03:45 95 Room Air 05/02/23 02:17 Room Air
--- NOTE | 2023-05-02 15:42 | CT Scan Report ---
CT-guided left retroperitoneal lymph node core biopsy INDICATION: Retroperitoneal lymphadenopathy PROCEDURE: Procedure and risks were explained. Informed consent was obtained. A final timeout was com pleted. The patient was placed prone on the exam table. The left flank was prepped and draped in ster ile fashion. 1% buffered lidocaine was utilized for skin anesthesia. Utilizing CT guidance, a 17-gauge coaxial needle was advanced into the left retroperitoneal lymph nod e. An 18-gauge core biopsy needle was advanced, and 2 cores were obtained and given to the pathologis t for review. The the coaxial needle was removed and Band-Aid applied. The patient tolerated the proc edure well. Post CT imaging demonstrated no immediate complication. Vital signs will be monitored pos tprocedure. IMPRESSION: Left retroperitoneal lymph node core biopsy as above. Performed, dictated, and signed by Zacarias Acevedo PA-C; to be co-signed by Dr. Trevor Montgomery. Electronically signed by: Trevor Montgomery M.D. 05/02/2023 3:42 PM
--- NOTE | 2023-05-02 18:06 | Communication Note ---
Date of Service: May 02, 2023 The patient was seen and examined in medical floor. He remains stable without any significant pain and or other symptoms. Will a full progress note tomorrow. Dr Peña Myers
[2023-05-02] MEDS: LATANOPROST 0.005% OP SOLN 2.5 ML BTL OPB SCH (19:36)
[2023-05-02] MEDS: METOPROLOL SUCC 25MG EXT REL TAB PO SCH (19:36)
[2023-05-02] MEDS: ROSUVASTATIN CALCIUM 20 MG TAB PO SCH (19:37)
[2023-05-03] MEDS: HEPARIN SOD 5,000 UNIT/0.5 ML VIAL SQ SCH ×3 (05:29→21:50)
[2023-05-03 07:41] LABS: Basophils # (auto) 0.03 K/uL (0.00-0.20); Basophils % (auto) 0.4 %; Eosinophils # (auto) 0.12 K/uL (0.00-0.50); Eosinophils % (auto) 1.7 %; Hemoglobin 12.4 g/dl (14.0-18.0); Immature Granulocytes # (auto) 0.02 K/uL (0.01-0.20); Immature Granulocytes % (auto) 0.3 %; Lymphocytes # (auto) 1.06 K/uL (1.20-3.40); Lymphocytes % (auto) 14.6 %; Mean Corpuscular Hemoglobin 30.2 pg (25.0-34.0); Mean Corpuscular Hgb Conc 32.6 g/dL (32.0-36.0); Mean Corpuscular Volume 92.7 fL (80.0-100.0); Mean Platelet Volume 8.5 fL (9.4-12.4); Monocytes # (auto) 1.03 K/uL (0.11-0.59); Monocytes % (auto) 14.2 %; Neutrophils # (auto) 4.99 K/uL (1.40-6.50); Neutrophils % (auto) 68.8 %; Platelet Count 152 K/uL (130-400); RDW Coefficient of Variation 15.3 % (11.5-14.5); RDW Standard Deviation 51.5 fL (36.4-46.3); White Blood Count 7.25 K/ul (4.8-10.8)
[2023-05-03 07:50] LABS: BUN Creatinine Ratio 13.9 (10-20); Calcium 8.1 mg/dl (8.6-10.3); Creatinine Clr Calc Pharmacy 56.5 ml/min; Est GFR (African American) 75.3 ml/min; Est GFR (Non-African American) 64.9 ml/min; Potassium 4.4 mmol/L (3.5-5.1)
[2023-05-03] MEDS: FAMOTIDINE 20 MG TAB PO SCH ×2 (07:54→19:52)
[2023-05-03] MEDS: METOPROLOL SUCC 25MG EXT REL TAB PO SCH ×2 (07:54→19:53)
[2023-05-03] MEDS: ASPIRIN 81 MG ECTAB PO SCH (07:54)
[2023-05-03] MEDS: FOLIC ACID 1 MG TAB PO SCH (07:54)
[2023-05-03] MEDS: traMADol HCL 50 MG TABLET PO PRN ×2 (07:55→14:30)
--- NOTE | 2023-05-03 09:30 | Urology Progress Note ---
Date of Service May 03, 2023 Assessment & Plan (1) Acute unilateral obstructive uropathy: Plan: 77 yo M who presented to the emergency department on 05/01/2023 for evaluation of worsening lower back and right flank discomfort ongoing for a few weeks and found to have partial obstruction of the right ureter with mild right hydronephrosis and multiple enlarged retroperitoneal lymph nodes and right pelvic lymphadenopathy. - Patient is afebrile and hemodynamically stable - Today's labs - creatinine 1.08, no leukocytosis - Flank pain has largely resolved - Patient underwent core biopsy of retroperitoneal lymph node yesterday - No acute intervention planned at this time - Discussed consideration of right ureteral stent placement if patient develops persistent flank pain, AURELIANO, or fever - Will await pathology to determine next steps - Given delayed nephrogram, patient may eventually require right ureteral stent placement to ensure proper drainage especially if he will be on chemotherapy - Continue f/u with oncology - We will arrange f/u with urology outpatient - will follow peripherally, please contact our service with any additional questions or concerns Admission and Anticipated Discharge Date Admission Date: May 02, 2023 Subjective Patient seen and examined at bedside this morning He is awake, alert and sitting up in bed eating breakfast No acute issues overnight He underwent IR biopsy yesterday Denies flank pain today Notes some nausea after eating No fever or chills Review of Systems Constitutional: as per Subjective / HPI Gastrointestinal: as per Subjective / HPI Genitourinary: + as per Subjective / HPI Physical Exam Physical Exam: General: well-appearing, no acute distress HEENT: Normocephalic, mucous membranes moist Pulmonary: Nonlabored respirations Abdomen: Nondistended Extremities: Moves all 4 spontaneously Neuro: No gross deficits Psych: alert and oriented, normal mood Skin: Warm, dry, no rashes noted : No CVA tenderness Results & Data Vital Signs (Past 12 Hours) Vital Signs Temp Pulse Resp BP Pulse Ox O2 Del Method 05/03/23 07:45 37.1 C 74 18 129/89 93 Room Air PG Care Time/CCT Total # of Minutes Spent Total Time Spent with Patient: Total time spent is greater than 50% in coordination of care (as documented) at patient's floor/unit and/or counseling patient: Coding Level of Care Code 54171 SUB INP/OBS CARE 2/35MIN Diagnoses Acute unilateral obstructive uropathy N13.9
[2023-05-03] MEDS ORDERED: OPTIRAY 320 100ml IV ONE (11:20)
--- NOTE | 2023-05-03 11:42 | CT Scan Report ---
CHEST CT WITH CONTRAST CT DOSE: 740.89 mGy.cm HISTORY: Retroperitoneal lymphadenopathy. staging for malignancy TECHNIQUE: Multiaxial CT images of the chest were performed following the intravenous administration of contrast. A dose lowering technique was utilized adhering to the principles of ALARA. COMPARISON: Abdomen and pelvis CT 05/01/2023. Chest CTA 09/27/2017. FINDINGS: There is mild diffuse bronchial wall thickening. This is likely chronic. No pneumothorax. T race left pleural effusion. Mild emphysema is noted. Calcified granuloma within the left upper lobe. Mild interstitial/subpleural thickening. This is likely chronic. There is a stable 4 mm nodule within the left upper lobe on image 78. This is likely benign. There is a new 4 mm nodule within the left u pper lobe on image 116. A few bibasilar linear densities consistent with subsegmental atelectasis or scarring. Mild honeycombing within the periphery of the lungs posteriorly. This suggests mild fibroti c change. No focal lung consolidations to suggest a pneumonia. No evidence for pulmonary edema. No lynch spicious lytic or blastic osseous lesions. There are poststernotomy changes. There are old, healed le ft-sided rib fractures. Degenerative changes within the shoulders. Multiple hypodense lesions within the liver again noted. These favor cysts. The visualized spleen and adrenal glands unremarkable. The retroperitoneal lymphadenopathy is better appreciated on the recent abdomen and pelvis CT. There is a large hiatus hernia containing the majority the stomach, unchanged. Normal esophagus. The thyroid gl and enhances normally. Normal caliber thoracic aorta with no evidence for a dissection. The central p ulmonary arteries are patent. The heart is mildly enlarged. No pericardial effusion. No mediastinal o r hilar lymphadenopathy. No axillary lymphadenopathy. There are 2 enlarged left retroclavicular lymph nodes with the dominant lymph node measuring 3.0 x 2.7 cm. IMPRESSION: 1. Left retroclavicular lymphadenopathy. 2. No mediastinal, hilar, or axillary lymphadenopathy. 3. The retroperitoneal lymphadenopathy is better appreciated on the recent abdomen and pelvis CT. 4. Large hiatus hernia again noted. 5. There is a new 4 mm nodule within the lingula. Please refer to the chart below for recommended fol low-up. 6. Trace left pleural effusion. 7. Additional findings as described above. Please refer to below summary of Fleischner criteria recommendations for follow-up of incidental CT n odules (H MacMahon, Guidelines for management of small pulmonary nodules detected on CT scans: A santo vega from the Fleischner Society, Radiology 237: [phone].) SOLID NODULES Solitary nodule size: <6 mm * Low risk patients: no follow-up needed * high risk patients: optional CT at 12 months Solitary nodule size: 6-8 mm * Low risk patients: follow-up at 6-12 months, then consider further follow-up at 18-24 months * high risk patients: initial follow-up CT at 6-12 months and then at 18-24 months if no change Solitary nodule size: >8 mm * either low or high risk patients - consider follow-up CT at 3 months, and/or CT-PET, and/or biopsy Multiple nodules size: <6 mm * Low risk patients: no routine follow-up * high risk patients: optional CT at 12 months Multiple nodules size: 6-8 mm * Low risk patients: follow-up at 3-6 months, then consider further follow-up at 18-24 months * high risk patients: follow-up at 3-6 months, then at 18-24 months if no change Multiple nodules size: >8 mm * Low risk patients: follow-up at 3-6 months, then consider further follow-up at 18-24 months * high risk patients: follow-up at 3-6 months, then at 18-24 months if no change Note: newly detected indeterminate nodule in persons 35 years of age or older. * Low risk patients: minimal or absent history of smoking and/or other known risk factors * high risk patients: history of smoking or of other known risk factors (e.g. first degree relative with lung cancer, or exposure to asbestos, radon, uranium) * if a nodule up to 8 mm is partly solid or is ground glass further follow-up is required after 24 m onths to exclude possible slow growing adenocarcinoma (MADI) SUBSOLID NODULES Solitary pure ground-glass nodule * nodule size <6 mm - no CT follow-up required * nodule size >=6 mm - follow-up CT at 6-12 months, then every 2 years until 5 years Solitary part-solid nodule * nodule size <6 mm - no CT follow-up required * nodule size >=6 mm - follow-up CT at 3-6 months. If unchanged, and solid component remains <6 mm, then annual follow-up for 5 years Multiple subsolid nodules * nodule size <6 mm - follow-up CT at 3-6 months, consider further follow-up at 2 and 4 years if sta ble * nodule size >=6 mm - follow-up CT at 3-6 months, subsequent management based on the most suspiciou s nodule(s) ACT 112: Negative or not required by law. Electronically signed by: Farhad Ascencio M.D. 05/03/2023 11:41 AM
[2023-05-03] MEDS: PROMETHAZINE HCL 6.25 MG in SODIUM CHLORIDE 0.9% 50 ML IV PRN (14:43)
[2023-05-03] MEDS: HYDROmorphone INJ 0.5 MG/0.5 ML SYR IV PRN (15:31)
--- NOTE | 2023-05-03 16:33 | Hospitalist Progress Note ---
Date of Service May 03, 2023 Assessment & Plan (1) ARF (acute renal failure): (2) Lymphadenopathy, retroperitoneal: (3) Acute unilateral obstructive uropathy: Plan AURELIANO Obstructive uropathy secondary to right-sided hydroureteronephrosis likely secondary to bulky retroperitoneal adenopathy concerning for malignancy Appreciate urology consult: Due to improvement in symptoms and AURELIANO no current GI intervention required at this time, they will follow-up as an outpatient Patient underwent biopsy of retroperitoneal lymph nodes concerning for adenocarcinoma of prostate primary Dr. Woods on board, PSA ordered and sent and to discuss with family regarding casodex initial plan was for Pt to D/C today; however he had a return of pain and therefore will be further monitored overnight --CT Chest IMPRESSION: 1. Left retroclavicular lmphadenopathy.2. No mediastinal, hilar, or axillary lymphadenopathy.3. The retroperitoneal lymphadenopathy is better appreciated on the recent abdomen and pelvis CT.4. Large hiatus hernia again noted. 5. There is a new 4 mm nodule within the lingula. Please refer to the chart below for recommended follow-up.6. Trace left pleural effusion.7. Additional findings as described above. --CT abd/pelvis:IMPRESSION: 1. Multiple enlarged retroperitoneal lymph nodes which are predominately located in the retrocaval and para-aortic lymph node stations. These extend into the pelvis with bulky pelvic RIGHT sidewall adenopathy. Correlate for primary malignancy such as lymphoma or testicular cancer. 2. Partial obstruction of the RIGHT ureter with mild RIGHT hydronephrosis and delayed nephrogram.3. Diaphragmatic hernia which contains a proximal stomach in the retrocardiac position. chronic diastolic failure (EF 55%, TTE 2022), patient on the dry side valvular heart disease (mild MR/mild AR) hx CAD status post CABG/PVD tachybradycardia syndrome/PAF status post BOLIVAR clip/Maze procedure paroxysmal V.T COPD/pulmonary hypertension, lung status at baseline hyperlipidemia on statin Rx Acute on chronic anemia, hemoglobin drop from baseline, FOBT done at the ER was negative, iron 44, transferrin 198, ferritin 39.6 rheumatoid arthritis on methotrexate and Orencia ; however pt does not wish to continue orencia past tobacco abuse DVT ppx: SQ Heparin PCP: Matthew FULL CODE Pt was seen and examined in collaboration with Dr. Myers, please see addendum Patient partner requesting updates from providers. Ms. Smita Ennis, contact #[phone]. Admission and Anticipated Discharge Date Admission Date: May 02, 2023 Supervising Physician Co-Signing Physician Notes Attending addendum The patient was seen and examined in medical floor in presence of the He was found to have prostate cancer on biopsy of the retroperitoneal nodes He will be seen by oncologist and medication will be started Complains of pain at the back and will not be discharged today On examination Lying in bed with some distress Hemodynamically stable and is afebrile Chest-clear to auscultate bilaterally Heart-S1-S2, regular Abdomen-benign Extremities-negative for any edema His labs, imaging studies and pathology report reviewed Noted to have severe prostate with obstructive uropathy Oncologist consulted Agree with assessment and plan as outlined above by Yulia Myers Subjective Patient was seen and examined in room 352. Follow up R abd pain with adenopathy. He had pain in am. but since resolved after taking tramadol. Denies f/c/s, chest pain, sob,n/v/d. His is at bedside. Initial plan was for discharge; however pt pain became more severe and felt unable to control at home. He required IV dilaudid and was nauseated. Review of Systems Review of Systems: All systems reviewed & are unremarkable except as noted in HPI & below Physical Exam Physical Exam: Gen: WD/WN, NAD, A&O x3 HEENT: Normocephalic, atraumatic, conjunctivae moist, sclerae anicteric, mucous membranes moist. Lung: Clear to Auscultation bilaterally, no wheezes/rales/rhonchi Heart: Regular rate, regular rhythm, no murmurs, rubs, or gallops Abdomen: Soft, NT, ND +BS x 4 Extremities: No edema Skin: Warm, no rash, negative turgor. Results & Data Results & Data Vital Signs (Past 12 Hours) Vital Signs Temp Pulse Pulse Resp BP Pulse Ox O2 Del Method 05/03/23 16:11 36.7 C 73 18 149/80 H 94 Room Air 05/03/23 14:23 37.1 C 73 74 18 129/89 93 05/03/23 07:45 37.1 C 74 18 129/89 93 Room Air Laboratory Results Short CBC 05/03/23 Range/Units 07:11 WBC 7.25 (4.8-10.8) K/ul Hgb 12.4 L (14.0-18.0) g/dl Hct 38.0 L (42.0-52.0) % Plt Count 152 (130-400) K/uL [facility] 05/03/23 07:11 Sodium 139 Potassium 4.4 Chloride 106 Carbon Dioxide 29 BUN 15 Creatinine 1.08 Glucose 90 Calcium 8.1 L Diagnostic Findings FINAL DIAGNOSIS Lymph node, retroperitoneal, CT-guided core biopsy: - 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 - See comment. Comment: There is likely enough tumor present for additional ancillary studies (block A1). at 8468. Clinical History Retroperitoneal lymphadenopathy. Procedure performed: Core biopsies. Gross Description RETROPERITONEAL MASS BIOPSY The specimen is received in a container labeled L retroperitoneal LN with the patient name. The specimen consists of 2 pale pink and red cylindrical fragments of soft rubbery tissue. The fragments measure 2.0 and 2.2 cm long and average 0.1 cm in diameter. The specimen is submitted entirely in 2 cassettes. Touch preparations are performed in this case during the intraoperative core biopsy procedure. Time Diagnosis 1300 malignant, possible lymphoma. 1305 malignant, pending final path. Touch preparation diagnosis by Dr. De Luna. AH Microscopic Description The tumor shows positive staining with pancytokeratin Lennox (membranous pattern), NKX3.1 and SMAD4. The tumor is negative with CD45, Napsin A TTF-1 CK7, CK20 CDX2, GATA3 PAX8 arginase 1, glypican-3 and HepPar (14 total). The overall findings are consistent with a prostate primary adenocarcinoma. Current Procedural Terminology [id number] Surgical Pathology Report Page 1 of 2 Medications Administered Current Inpatient Medications Acetaminophen (Acetaminophen 325 Mg Tab) 650 mg PO QID PRN PRN Reason: pain/fever Stop: 06/01/23 01:47 Last Admin: 11/06/23 09:48 Dose: 650 mg Aspirin (Aspirin 81 Mg Ectab) 81 mg PO QAM [facility] Stop: 06/01/23 08:59 Last Admin: 05/03/23 07:54 Dose: 81 mg Famotidine (Famotidine 20 Mg Tab) 20 mg PO BID [facility] Stop: 06/01/23 08:59 Last Admin: 05/03/23 07:54 Dose: 20 mg Folic Acid (Folic Acid 1 Mg Tab) 1 mg PO QAM [facility] Stop: 06/01/23 08:59 Last Admin: 05/03/23 07:54 Dose: 1 mg Heparin Sodium (Porcine) (Heparin Sod 5,000 Unit/0.5 Ml Vial) 5,000 units SQ Q8 [facility] Stop: 06/01/23 05:59 Last Admin: 05/03/23 13:28 Dose: 5,000 units Hydromorphone HCl (Hydromorphone Inj 0.5 Mg/0.5 Ml Syr) 0.25 mg IV Q6H PRN PRN Reason: Pain Stop: 05/16/23 01:47 Last Admin: 05/03/23 15:31 Dose: 0.25 mg Promethazine HCl 6.25 mg/ (Sodium Chloride) 50.25 mls @ 201 mls/hr IV Q6H PRN PRN Reason: Nausea And Vomiting Stop: 06/01/23 01:47 Last Infusion: 05/03/23 15:01 Dose: Infused Latanoprost (Latanoprost 0.005% Op Soln 2.5 Ml Btl) 1 drops OPB HS [facility] Stop: 06/01/23 20:59 Last Admin: 05/02/23 19:36 Dose: 1 drops Metoprolol Succinate (Metoprolol Succ 25mg Ext Rel Tab) 25 mg PO HS [facility] Stop: 06/01/23 20:59 Last Admin: 05/02/23 19:36 Dose: 25 mg Metoprolol Succinate (Metoprolol Succ 25mg Ext Rel Tab) [facility] Stop: 06/02/23 08:59 Last Admin: 05/03/23 07:54 Dose: 12.5 mg Rosuvastatin Calcium (Rosuvastatin Calcium 20 Mg Tab) 20 mg PO QPM [facility] Stop: 06/01/23 20:59 Last Admin: 05/02/23 19:37 Dose: 20 mg Tramadol HCl (Tramadol Hcl 50 Mg Tablet) 25 - 50 mg PO Q4H PRN PRN Reason: Pain Stop: 06/01/23 01:47 Last Admin: 05/03/23 14:30 Dose: 50 mg
--- NOTE | 2023-05-03 16:53 | Hematology/Oncology Prog Note ---
Date of Service May 03, 2023 Assessment & Plan (1) Lymphadenopathy, retroperitoneal: (2) Pelvic lymphadenopathy: (3) Prostate CA: Plan -Biopsy suggestive of metastatic adenocarcinoma of the prostate gland. Recommend checking PSA today. Recommend starting him on bicalutamide 50 mg p.o. daily while awaiting outpatient evaluation. -I will schedule him for follow-up with me in about 1 to 2 weeks to discuss overall treatment plan. We will also plan to start androgen deprivation therapy with Lupron at that time. -If abdominal pain does not improve with treatment, will refer to radiation oncology for palliative radiation treatment Above plan discussed with patient and his who agreed Admission and Anticipated Discharge Date Admission Date: May 02, 2023 Subjective Complaining of right flank pain. Recent biopsy suggestive of metastatic adenocarcinoma of the prostate Results & Data Vital Signs (Past 12 Hours) Vital Signs Temp Pulse Pulse Resp BP Pulse Ox O2 Del Method 05/03/23 16:11 36.7 C 73 18 149/80 H 94 Room Air 05/03/23 14:23 37.1 C 73 74 18 129/89 93 05/03/23 07:45 37.1 C 74 18 129/89 93 Room Air
[2023-05-03] MEDS: LATANOPROST 0.005% OP SOLN 2.5 ML BTL OPB SCH (19:53)
[2023-05-03] MEDS: BICALUTAMIDE 50 MG TAB PO SCH (19:53)
[2023-05-03] MEDS: ROSUVASTATIN CALCIUM 20 MG TAB PO SCH (19:53)
[2023-05-04] MEDS: HEPARIN SOD 5,000 UNIT/0.5 ML VIAL SQ SCH (06:16)
[2023-05-04 07:56] LABS: Basophils # (auto) 0.04 K/uL (0.00-0.20); Basophils % (auto) 0.5 %; Eosinophils # (auto) 0.02 K/uL (0.00-0.50); Eosinophils % (auto) 0.2 %; Hematocrit (blood only) 36.1 % (42.0-52.0); Hemoglobin 12.2 g/dl (14.0-18.0); Immature Granulocytes # (auto) 0.03 K/uL (0.01-0.20); Immature Granulocytes % (auto) 0.4 %; Lymphocytes # (auto) 0.78 K/uL (1.20-3.40); Lymphocytes % (auto) 9.4 %; Mean Corpuscular Hemoglobin 30.1 pg (25.0-34.0); Mean Corpuscular Hgb Conc 33.8 g/dL (32.0-36.0); Mean Corpuscular Volume 89.1 fL (80.0-100.0); Mean Platelet Volume 8.9 fL (9.4-12.4); Monocytes % (auto) 9.6 %; Neutrophils # (auto) 6.66 K/uL (1.40-6.50); Neutrophils % (auto) 79.9 %; Platelet Count 165 K/uL (130-400); RDW Coefficient of Variation 14.9 % (11.5-14.5); Red Blood Count 4.05 M/uL (4.70-6.10); White Blood Count 8.33 K/ul (4.8-10.8)
[2023-05-04] MEDS: FOLIC ACID 1 MG TAB PO SCH (08:30)
[2023-05-04] MEDS: METOPROLOL SUCC 25MG EXT REL TAB PO SCH (08:30)
[2023-05-04] MEDS: ASPIRIN 81 MG ECTAB PO SCH (08:30)
[2023-05-04] MEDS: BICALUTAMIDE 50 MG TAB PO SCH (08:30)
[2023-05-04] MEDS: FAMOTIDINE 20 MG TAB PO SCH (08:30)
[2023-05-04 08:36] LABS: Calcium 8.2 mg/dl (8.6-10.3); Potassium 3.9 mmol/L (3.5-5.1)
[2023-05-04 08:41] LABS: BUN Creatinine Ratio 19.3 (10-20); Creatinine Clr Calc Pharmacy 69.4 ml/min; Est GFR (African American) 94.7 ml/min; Est GFR (Non-African American) 81.7 ml/min
[2023-05-04] MEDS: HYDROmorphone INJ 0.5 MG/0.5 ML SYR IV PRN (10:55)
--- NOTE | 2023-05-04 12:21 | Discharge Summary ---
Discharge Summary Date of Service May 04, 2023 Notes For Next Care Provider Patient newly diagnosed with metastatic adenocarcinoma of prostate primary. Underwent interventional radiology biopsy of right-sided bulky retroperitoneal adenopathy. This reveals metastatic adenocarcinoma of prostate. He was seen and evaluated by oncologist Dr. Woods and started on 50 mg daily Casodex therapy. His PSA was significantly elevated at 464 with a free PSA of greater than 17.6 He continued to have intermittent pain throughout hospitalization but appears to be controlled on as needed tramadol therapy. If pain persist and worsen he may need consultation with radiation oncology for palliative radiation. He will need follow-up with Dr. Woods upon discharge from hospital along with [facility] urology. Medication Changes From Visit Bicalutamide 50 mg once daily. Zofran, 4mg, as needed for nausea. Tramadol 50mg every 4 hours as needed for severe pain. Recommend use of stool softeners while taking. Admission HPI Per Admitting Provider History obtained from patient, family, and records. Medical history significant for chronic diastolic failure (EF 55%, TTE 2022), valvular heart disease (mild MR/mild AR), CAD status post CABG, tachybradycardia syndrome/PAF status post BOLIVAR clip/maze procedure as per records, aortic root enlargement as per records, paroxysmal V. tach, COPD, pulmonary hypertension, hyperlipidemia, chronic anemia (baseline hemoglobin of 13), rheumatoid arthritis on methotrexate and Orencia, chronic back pain status post surgery, GERD, colonic diverticulosis, urolithiasis, past tobacco abuse. Last confinement February 2019 under orthopedic spine service for lumbar spinal stenosis status post elective decompression surgery. Six months history of intermittent right-sided abdominal pain going to the back. Patient was not sure if pain was from arthritis or from outpatient periodic Orencia infusions. Almost 20 pound involuntary weight loss in the last month. No fever, no chills. No hematuria, no hematochezia. No chest pain, no SOB, no unusual cough symptoms. Occasional groin discomfort. No new lumps or night sweats. Patient brought to ER by family for evaluation. 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 Admission Exam Per Admitting Provider GENERAL: Comfortable, pleasant, slightly hard of hearing, no respiratory distress SKIN: Pallor, warm HEENT: Alopecia, pale, [place] palpebral conjunctivae, no ptosis, dry buccal mucosa NECK : Supple, no tenderness CHEST : Decreased breath sounds, no tenderness HEART : RRR, no obvious murmurs ABDOMEN: Some distention, minimal right-sided abdominal tenderness RECTAL : Intact sphincter, brown stool (FOBT negative) EXTREMITIES : Minimal LE swelling/tenderness, no other conspicuous deformities noted NEUROLOGIC : Coherent, no facial asymmetry, slightly hard of hearing, no other gross focality Principal Dx & Hospital Course #1 = Principal Diagnosis (1) ARF (acute renal failure): (2) Lymphadenopathy, retroperitoneal: (3) Acute unilateral obstructive uropathy: Plan This is a 77-year-old male who has a significant past medical history of chronic diastolic CHF, valvular heart disease with mild MR/mild AR, history of CAD status post CABG, PVD, tachybradycardia syndrome, PAF status post left atrial appendage clip/maze procedure, PSVT, COPD, hyperlipidemia, acute on chronic anemia, rheumatoid arthritis who presented to ED secondary to right-sided abdominal pain. Initial CT abdomen pelvis revealed multiple enlarged retrop eritoneal lymph nodes which are predominant located in the retrocaval and para- aortic lymph node stations. These extend into the pelvis with bulky pelvic right sidewall adenopathy with associated partial obstruction of right ureter with mild right hydronephrosis and delayed nephrogram. He was also noted to have a mild AURELIANO on admission with a creatinine of 1.49. AURELIANO improved with IV fluid. He was seen and evaluated by urology. Due to improvement in kidney function as well as abdominal pain currently there is no intervention required. He was seen and evaluated by interventional radiology and underwent biopsy of bulky adenopathy which reveals metastatic adenocarcinoma of prostate primary. He was seen and evaluated by oncology Dr. Woods and Casodex 50mg daily was ordered. His PSA was 464. He will need close follow-up with oncology as outpatient for further work-up. He did have CT of chest for staging purposes while hospitalized which did reveal a left retroclavicular lymphadenopathy and large hiatal hernia. Also noted was a 4 mm nodule within the lingula which will need follow-up in [address] scan. He did require intermittent pain medications while hospitalized to assist with abdominal pain. He will be discharged with as needed tramadol. Again he will need close follow-up with oncology as well as urology for further work-up regarding newly diagnosed prostate cancer. Discharge Exam Gen: WD/WN, NAD, A&O x3 HEENT: Normocephalic, atraumatic, conjunctivae moist, sclerae anicteric, mucous membranes moist. Lung: Clear to Auscultation bilaterally, no wheezes/rales/rhonchi Heart: Regular rate, regular rhythm, no murmurs, rubs, or gallops Abdomen: Soft, NT, ND +BS x 4 Extremities: No edema Skin: Warm, no rash, negative turgor. Updated Medication List Medication Instructions Recorded Confirmed Type aspirin 81 mg tablet,delayed 81 mg PO QAM 01/25/19 05/03/23 History release celecoxib 200 mg capsule (Celebrex) 200 mg PO QAM 01/25/19 05/03/23 History coQ10 (ubiquinol) 200 mg capsule 200 mg PO QPM 01/25/19 05/03/23 History folic acid 1 mg tablet 1 mg PO DAILY 01/25/19 05/03/23 History rosuvastatin 20 mg tablet 20 mg PO QPM 01/25/19 05/03/23 History vitamin E 268 mg (400 unit) capsule 200 unit PO DAILY 01/25/19 04/21/23 History abatacept (with maltose) 250 mg ml IV 05/02/23 History intravenous solution (Orencia (with maltose)) albuterol sulfate 90 mcg/actuation 2 puff inhalation BID PRN wheeze 05/02/23 05/02/23 History aerosol inhaler alendronate 70 mg tablet 70 mg PO WK 05/02/23 05/02/23 History famotidine 20 mg tablet 20 mg PO BID 05/02/23 05/02/23 History latanoprost 0.005 % eye drops 1 drp OPB HS 05/02/23 05/02/23 History methotrexate sodium 2.5 mg tablet 17.5 mg PO WK 05/02/23 05/02/23 History metoprolol succinate 25 mg 25 mg PO BID 05/02/23 05/02/23 History tablet,extended release 24 hr ondansetron 4 mg disintegrating 4 mg PO DAILY PRN nausea and 05/03/23 Rx tablet vomiting 4 days #4 tabs bicalutamide 50 mg tablet 50 mg PO QAM #30 tabs 05/04/23 Rx tramadol 50 mg tablet 50 mg PO Q4H PRN Pain #12 tabs 05/04/23 Rx Hospital Stay Data Consultations 05/02/23 00:31 ED Decision to Admit Stat 05/02/23 03:08 Consult Urology Routine 05/02/23 05:50 Consult Oncology Routine Diagnostic Imagining Performed Abdomen/Pelvis CT 05/01/23 20:40 Exam(s): CT ABDOMEN + PELVIS With Contrast IV Amt: 93 ml optiray 320 EXAM: CT Abdomen and Pelvis With Intravenous Contrast CLINICAL HISTORY: Reason for exam: Lower abd pain. TECHNIQUE: Axial computed tomography images of the abdomen and pelvis with intravenous contrast. Automated exposure control was utilized for the study. A dose lowering technique was utilized adhering to the principles of ALARA. CONTRAST: Patient received 93 ml optiray 320 of IV contrast COMPARISON: No relevant prior studies available. FINDINGS: Lung bases: Unremarkable. No mass. No consolidation. ABDOMEN: Liver: Hepatic cysts. Gallbladder and bile ducts: Cholelithiasis. No ductal dilation. Pancreas: Unremarkable. No mass. No ductal dilation. Spleen: Unremarkable. No splenomegaly. Adrenals: Unremarkable. No mass. Kidneys and ureters: There is partial obstruction of the RIGHT ureter with mild RIGHT hydronephrosis and delayed nephrogram. Stomach and bowel: Diaphragmatic hernia which contains a proximal stomach in the retrocardiac position. Cecum, and lumbar spine CT scan for additional findings. No obstruction. No mucosal thickening. PELVIS: Appendix: No findings to suggest acute appendicitis. Bladder: Unremarkable. No mass. Reproductive: Unremarkable as visualized. ABDOMEN and PELVIS: Intraperitoneal space: Unremarkable. No free air. No significant fluid collection. Bones/joints: Degenerative changes of the spine. Soft tissues: Small fat-containing RIGHT inguinal hernia. Vasculature: Atherosclerotic changes of the aorta. No abdominal aortic aneurysm. Lymph nodes: Multiple enlarged retroperitoneal lymph nodes which are predominately located in the retrocaval and para-aortic lymph node stations. These extend into the pelvis with bulky pelvic RIGHT sidewall adenopathy. Correlate for primary malignancy such as lymphoma or testicular cancer. IMPRESSION: 1. Multiple enlarged retroperitoneal lymph nodes which are predominately located in the retrocaval and para-aortic lymph node stations. These extend into the pelvis with bulky pelvic RIGHT sidewall adenopathy. Correlate for primary malignancy such as lymphoma or testicular cancer. 2. Partial obstruction of the RIGHT ureter with mild RIGHT hydronephrosis and delayed nephrogram. 3. Diaphragmatic hernia which contains a proximal stomach in the retrocardiac position. Electronically signed by: Jori Nguyen MD 05/02/23 00:[address] 05/01/23 20:44 Exam(s): CT L SPINE With Contrast IV Amt: 93 ml optiray 320 EXAM: CT Lumbar Spine With Intravenous Contrast CLINICAL HISTORY: Reason for exam: LBP - RECON please. TECHNIQUE: Axial computed tomography images of the lumbar spine with intravenous contrast. Automated exposure control was utilized for the study. A dose lowering technique was utilized adhering to the principles of ALARA. CONTRAST: Patient received 93 ml optiray 320 of IV contrast COMPARISON: No relevant prior studies available. FINDINGS: The vertebral body heights are maintained. The craniocervical junction is intact. The atlanto-dens interval is maintained. The dens is intact. Posterior fusion at L2-L4 with paired pedicle screws in parallel spinal stabilization rods. No screw fracture or CT evidence of hardware failure. Grade 2 anterolisthesis of L5 on S1 measures 1.5 cm. Posterior decompression/laminectomies at L2-S1. Multilevel cervical spondylosis and degenerative disc disease. Straightening of the cervical lordosis. The unenhanced neck soft tissues are grossly unremarkable. The visualized lung apices are grossly clear. IMPRESSION: No lumbar spine fracture. Grade 2 anterolisthesis of L5 on S1 measures 1.5 cm. Posterior fusion at L2-L4 with paired pedicle screws in parallel spinal stabilization rods. No CT evidence of hardware failure. Posterior decompression/laminectomies at L2-S1. Electronically signed by: Jori Nguyen MD 05/02/23 00:05 AM Chest X-Ray 05/02/23 00:43 XR chest 1V portable HISTORY: 77 years-old Male renal failure acute renal failure COMPARISON: 02/12/2019 TECHNIQUE: AP view of the chest FINDINGS: Cardiac silhouette is enlarged, unchanged. Left atrial exclusion device. Prior median sternotomy. Large hiatal hernia. No pneumothorax, pleural effusion or overt pulmonary edema. Mild pulmonary vascular congestion. Minimal subsegmental atelectasis/scarring. Degenerative changes of the shoulders and spine. IMPRESSION: 1. Cardiomegaly with pulmonary vascular congestion. 2. Large hiatal hernia. ACT 112: Negative or not required by law. The above report was generated using voice recognition software. It may contain grammatical, syntax or spelling errors. Electronically signed by: Trevor Montgomery M.D. 05/02/2023 7:25 AM Scrotum Ultrasound 05/02/23 01:47 Exam(s): US SCROTAL EXAM: US Scrotum CLINICAL HISTORY: Reason for exam: intermittent pain. TECHNIQUE: Real-time ultrasound of the scrotum with color Doppler and image documentation. COMPARISON: No relevant prior studies available. FINDINGS: Right testicle: There is 1 mm calcification seen in the right testicular parenchyma. No torsion. Left testicle: Left testicle measures 5.1 cm in length. No torsion. Epididymides: 6 mm x 8 mm cyst seen in the right epididymis. Left epididymis cyst measuring 7 mm in diameter. Scrotum: Small right and left hydrocele. IMPRESSION: 1. No evidence of testicular torsion or orchitis 2. Bilateral small hydrocele Electronically signed by: Jose Nicholas MD 05/02/23 05:28 AM Abdomen Retroperitoneal biopsy 05/02/23 09:19 CT-guided left retroperitoneal lymph node core biopsy INDICATION: Retroperitoneal lymphadenopathy PROCEDURE: Procedure and risks were explained. Informed consent was obtained. A final timeout was completed. The patient was placed prone on the exam table. The left flank was prepped and draped in sterile fashion. 1% buffered lidocaine was utilized for skin anesthesia. Utilizing CT guidance, a 17-gauge coaxial needle was advanced into the left retroperitoneal lymph node. An 18-gauge core biopsy needle was advanced, and 2 cores were obtained and given to the pathologist for review. The the coaxial needle was removed and Band-Aid applied. The patient tolerated the procedure well. Post CT imaging demonstrated no immediate complication. Vital signs will be monitored postprocedure. IMPRESSION: Left retroperitoneal lymph node core biopsy as above. Performed, dictated, and signed by Zacarias Acevedo PA-C; to be co-signed by Dr. Trevor Montgomery. Electronically signed by: Trevor Montgomery M.D. 05/02/2023 3:[address] 05/03/23 10:[address] WITH CONTRAST CT DOSE: 740.89 mGy.cm HISTORY: Retroperitoneal lymphadenopathy. staging for malignancy TECHNIQUE: Multiaxial CT images of the chest were performed following the intravenous administration of contrast. A dose lowering technique was utilized adhering to the principles of ALARA. COMPARISON: Abdomen and pelvis CT 05/01/2023. Chest CTA 09/27/2017. FINDINGS: There is mild diffuse bronchial wall thickening. This is likely chronic. No pneumothorax. Trace left pleural effusion. Mild emphysema is noted. Calcified granuloma within the left upper lobe. Mild interstitial/subpleural thickening. This is likely chronic. There is a stable 4 mm nodule within the left upper lobe on image 78. This is likely benign. There is a new 4 mm nodule within the left upper lobe on image 116. A few bibasilar linear densities consistent with subsegmental atelectasis or scarring. Mild honeycombing within the periphery of the lungs posteriorly. This suggests mild fibrotic change. No focal lung consolidations to suggest a pneumonia. No evidence for pulmonary edema. No suspicious lytic or blastic osseous lesions. There are poststernotomy changes. There are old, healed left-sided rib fractures. Degenerative changes within the shoulders. Multiple hypodense lesions within the liver again noted. These favor cysts. The visualized spleen and adrenal glands unremarkable. The retroperitoneal lymphadenopathy is better appreciated on the recent abdomen and pelvis CT. There is a large hiatus hernia containing the majority the stomach, unchanged. Normal esophagus. The thyroid gland enhances normally. Normal caliber thoracic aorta with no evidence for a dissection. The central pulmonary arteries are patent. The heart is mildly enlarged. No pericardial effusion. No mediastinal or hilar lymphadenopathy. No axillary lymphadenopathy. There are 2 enlarged left retroclavicular lymph nodes with the dominant lymph node measuring 3.0 x 2.7 cm. IMPRESSION: 1. Left retroclavicular lymphadenopathy. 2. No mediastinal, hilar, or axillary lymphadenopathy. 3. The retroperitoneal lymphadenopathy is better appreciated on the recent abdomen and pelvis CT. 4. Large hiatus hernia again noted. 5. There is a new 4 mm nodule within the lingula. Please refer to the chart below for recommended follow-up. 6. Trace left pleural effusion. 7. Additional findings as described above. Please refer to below summary of Fleischner criteria recommendations for follow- up of incidental CT nodules (Denise Denney, Guidelines for management of small pulmonary nodules detected on CT scans: A statement from the Fleischner Society, Radiology 237: [phone].) SOLID NODULES Solitary nodule size: <6 mm * Low risk patients: no follow-up needed * high risk patients: optional CT at 12 months Solitary nodule size: 6-8 mm * Low risk patients: follow-up at 6-12 months, then consider further follow-up at 18-24 months * high risk patients: initial follow-up CT at 6-12 months and then at 18-24 months if no change Solitary nodule size: >8 mm * either low or high risk patients - consider follow-up CT at 3 months, and/or CT-PET, and/or biopsy Multiple nodules size: <6 mm * Low risk patients: no routine follow-up * high risk patients: optional CT at 12 months Multiple nodules size: 6-8 mm * Low risk patients: follow-up at 3-6 months, then consider further follow-up at 18-24 months * high risk patients: follow-up at 3-6 months, then at 18-24 months if no change Multiple nodules size: >8 mm * Low risk patients: follow-up at 3-6 months, then consider further follow-up at 18-24 months * high risk patients: follow-up at 3-6 months, then at 18-24 months if no change Note: newly detected indeterminate nodule in persons 35 years of age or older. * Low risk patients: minimal or absent history of smoking and/or other known risk factors * high risk patients: history of smoking or of other known risk factors (e.g. first degree relative with lung cancer, or exposure to asbestos, radon, uranium) * if a nodule up to 8 mm is partly solid or is ground glass further follow-up is required after 24 months to exclude possible slow growing adenocarcinoma (MADI) SUBSOLID NODULES Solitary pure ground-glass nodule * nodule size <6 mm - no CT follow-up required * nodule size >=6 mm - follow-up CT at 6-12 months, then every 2 years until 5 years Solitary part-solid nodule * nodule size <6 mm - no CT follow-up required * nodule size >=6 mm - follow-up CT at 3-6 months. If unchanged, and solid component remains <6 mm, then annual follow-up for 5 years Multiple subsolid nodules * nodule size <6 mm - follow-up CT at 3-6 months, consider further follow-up at 2 and 4 years if stable * nodule size >=6 mm - follow-up CT at 3-6 months, subsequent management based on the most suspicious nodule(s) ACT 112: Negative or not required by law. Electronically signed by: Farhad Ascencio M.D. 05/03/2023 11:41 AM Pending Results Patient Have Any Pending Studies at Discharge: No Discharge Instructions Given to Patient (Per Discharging Provider) MEDICATION CHANGES: Bicalutamide 50 mg once daily. Zofran, 4mg, as needed for nausea. Tramadol 50mg every 4 hours as needed for severe pain. Recommend use of stool softeners while taking. 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 SUMMARY OF TEST RESULTS: You were admitted to hospital due to abdominal pain and initial concern that you may have had a kidney stone. You were admitted secondary to elevated kidney function as well as CT abdomen pelvis concerning for enlarging lymph nodes in your abdomen. CT scan also showed partial of obstruction of the RIGHT ureter due to the enlarged lymph nodes. There is concern that these lymph nodes could be cancerous and therefore it was biopsied. Biopsy reveals a likely primary adenocarcinoma of prostate. You were seen and evaluated by urology as well as oncology while inpatient. You also underwent CT scan of chest which also revealed an enlarged lymph node behind your left clavicle. This will be followed by the oncologist, Dr. Woods. PENDING TEST RESULTS: None RECOMMENDATIONS FOR FOLLOW-UP: Please follow-up with your Primary Care Provider as scheduled. It is recommended you have repeat testing of your kidney function at this follow up appointment. The urology office will contact you with a follow-up appointment. If you do not hear from them I would recommend calling the number in your discharge instructions. You also need to follow-up with oncology, Dr. Woods. They will arrange this follow up. Recommend to continue taking the new medication prescribed by Dr. Woods, Bicalutamide 50 mg once daily Recommend to stay well hydrated drinking 70-80oz of water daily. You may utilize your prescription of tramadol as needed for pain. If this medication is not controlling your pain please reach out to Dr. Woods. A CT scan of your chest revealed a small nodule. It is recommended you have a repeat CT scan of chest in 1 year. Your Primary Care Provider can arrange this. OTHER INSTRUCTIONS: Seek medical attention if you have: * temperature above 101 * chest pain or trouble breathing * abdominal pain, nausea, vomiting * diarrhea, dark stools or bloody stools * any unanswered questions or concerns Call 911 if symptoms are severe. Please take good care of yourself. It has been a pleasure taking care of you. Please take care of yourself. If you have any questions regarding your recent hospitalization please contact [facility] and request Tommy Contreras @ [phone]. Vane Bryant PA-C Total Time Total Time Spent Total Time Spent (In Minutes): 45 minutes Supervising Physician Co-Signing Physician Notes Attending addendum: The patient was seen and examined in medical floor He has been feeling much better today and the pain is controlled with current pain regimen He wants to go home this afternoon On examination Lying in bed without any acute distress but anxious Hemodynamically stable Chest-clear to auscultate bilaterally Heart-S1-S2, regular Abdomen-benign Extremities-trace edema bilaterally His labs, medications and pathology report reviewed Has newly diagnosed metastatic adenocarcinoma prostate under care of oncologist Remains medically stable to be discharged Reviewed assessment and plan as outlined above by Yulia Myers
--- OUTSIDE RECORDS SUMMARY | 2023-05-06 14:13 | External Medical Summary | Summary of Care ---
Author Name Unknown Organization [facility] Address [address] [place] [address] Phone [phone] Care Team Providers Care Manager Statistics Name Role Phone Isaak Castro Primary Care Provider [phone] Reason for Visit * Reason Comments Ear Pain Encounter Details Date Type Department Care Team Description 03/13/2023 Convenient Care Visit [facility] [address] [place] [address] Lena Acosta CRNP [address] [place] [address] Impacted cerumen of right ear*; Acute otitis externa of right ear, unspecified type Allergies Active Allergy Reactions Severity Noted Date Comments Adalimumab 03/25/2016 Drug rash documented as of this encounter (statuses as of 03/13/2023) Medications Medication Sig Dispensed Refills Start Date End Date Status VITAMIN E 200 IU OR CAPS one pill each day 30 0 06/29/2003 Active FOLIC ACID 1 MG PO TABSIndications:Coron jennifer atherosclerosis 1 TABLET DAILY 90 3 09/19/2008 Active ASPIRIN 81 MG PO TABS 1 tablet daily- on hold x 90 days after lumbar surgery 9-3-19 0 Active METHOTREXATE 2.5 MG PO TABSIndications:Arthr itis, rheumatoid (HCC) 7 pills together once a week 30 Tab 3 10/25/2013 Active VITAMIN D 1000 UNITS PO CAPSIndications:Other osteoporosis 1 capsule daily 30 Cap 11 10/25/2013 Active Acetaminophen ER 650 MG Oral Tablet Extended Release Take 1 Tablet by mouth every 8 hours as needed. 0 Active clotrimazole-betameth asone (LOTRISONE) 1-0.05 % cream 0 10/24/2017 Active Ketoconazole 2 % cream 0 10/24/2017 Active traMADol (ULTRAM) 50 MG Tablet Take 1 Tablet by mouth every 4 hours as needed. 0 10/31/2017 Active Coenzyme Q10 200 MG Capsule Take 1 Cap by mouth daily. 0 11/14/2017 Active celecoxib (CELEBREX) 200 MG Capsule Take 1 Capsule by mouth in the morning. On hold x 90 days after lumbar surgery 9-3-19. 0 01/05/2018 Active XELJANZ XR 11 MG TB24 0 12/21/2018 Act velia alendronate (FOSAMAX) 70 MG Tablet Take 1 Tablet by mouth once a week. 0 09/09/2019 Active Nitroglycerin 0.4 MG Sublingual Tablet Sublingual (Nitrostat)Indication s:Coronary atherosclerosis Place 1 tab under the tongue every 5 minutes for 3 doses if needed for chest pain. Call 911 if no relief! 25 Tablet 1 01/29/2022 Active Additional Information Patient not taking.Reported on 10/28/2022 Latanoprost 0.005 % Ophthalmic Solution (Xalatan) 0 03/08/2022 Active Albuterol Sulfate HFA 108 (90 Base) MCG/ACT Inhalation Aerosol SolutionIndications:W heezing INHALE TWO PUFFS BY MOUTH TWO TIMES DAILY NEEDED FOR COUGHING OR WHEEZING 54 g 1 09/08/2022 Active Orencia 250 MG Intravenous Solution Reconstituted (Abatacept) Inject 750 mg under the skin at week 0, 2, 4, and then every 4 weeks thereafter 3 Each 11 09/28/2022 Active Famotidine 20 MG Oral Tablet (Pepcid) TAKE 1 TABLET BY MOUTH TWICE DAILY 180 Tablet 1 10/14/2022 Active Metoprolol Succinate ER 25 MG Oral Tablet Extended Release 24 Hour (toPROL XL)Indications:Waters ry artery disease involving pauma coronary artery of pauma heart without angina pectoris,Paroxysmal atrial fibrillation (HCC),Dyslipidemia, goal LDL below 70 TAKE 1/2 TABLET BY MOUTH EVERY MORNING and take 1 tablet every evening 135 Tablet 3 10/28/2022 Active Rosuvastatin Calcium 20 MG Oral Tablet (Crestor) Take 1 Tablet by mouth in the morning. 90 Tablet 3 10/28/2022 Active Ofloxacin 0.3 % Otic Solution (Floxin)Indications:A cute otitis externa of right ear, unspecified type Administer 5 Drops into ears in the morning and 5 Drops before bedtime. Do all this for 10 days. In affected ear for 10 days.. 5 mL 0 03/13/2023 3 Active documented as of this encounter (statuses as of 03/13/2023) Active Problems Problem Noted Date Age-related osteoporosis without current pathological fracture 11/11/2020 Atherosclerosis of pauma co ronary artery of pauma heart without angina pectoris 08/27/2019 Gastroesophageal reflux disease without esophagitis 08/27/2019 Chronic obstructive pulmonary disease Old MT (myocardial infarction) 8 Dyslipidemia, goal LDL below 70 02/18/20 18 S/P CABG x 3 01/03/2018 Paroxysmal VT 01/03/2018 Paroxysmal atrial fibrillation 8 Essential hypertension with goal blood p ressure less than 130/80 01/03/2018 Laryngitis, chronic 09/28/2011 Anemia 03/25/2011 left lateral rectus palsy 06/03/2008 Chronic rhinitis 12/26/2007 Sensorineural hearing loss, bilateral Iron deficiency anemia 10/02/2007 ADVANCE DIRECTIVE INFORMATION 07/14/2005 Overview: No, Advance Directive brochure offered , patient declined. Chronic sinusitis 06/09/2002 Arthritis, rheumatoid 10/25/2001 GENERAL OSTEOARTHROSIS History of colonic polyps Overview: 09/29/11: [facility] colonoscopy, diffuse inflammation, c dif found no polyps, treated with clearing 05/26/10: adenoma, repeat in 2012 ICD-10 update of inactive term documented as of this encounter (statuses as of 03/13/2023) Resolved Problems Problem Noted Date Resolved Date Rheumatic heart failure 03/27/2018 08/27/19 20 Recurrent sinusitis 09/28/2011 03/27/2018 Renal calculi 09/03/2011 11/22/[address] of the abdomen 08/15/201103/27 Overview: Transverse colon, splenic flexure and descending colon wall thickening. Rectal bleed 08/15/2011 03/27/2018 Clostridium difficile infection 08/15/2011 11/22/2018 Body aches 08/13/2011 03/27/2018 H. pylori infection 08/14/2010 03/27/2018 VOICE DISTURBANCE ,hoarseness 12/26/2007 Sciatica 07/14/2005 11/22/2018 Other osteoporosis without current pathological fracture 07/14/2005 05/14/2020 Overview: ICD-10 update of inactive term ACUTE URI NOS 06/09/2002 07/26/2002 H. pylori infection 11/22/2018 Overview: egd, gastric biopsy documented as of this encounter (statuses as of 03/13/2023) Immunizations Name Administration Dates Next Due COVID-19 mRNA, LNP-s, No Pre serve, 2-Dose Series ([employer]) 08/22/2020,08/01/2020 Pneumococcal Conjugate Vacc, 13 Valent (Prevnar) 04/27/2016 Pneumococcal Polysaccharide PPV23 (Pneumovax) 07/13/2017,08/17/2007 Seasonal Influenza, PF, 6 mo ns & Above, IM , (Flulaval) 03/27/2018,07/13/2017 Seasonal Influenza, Quadriva lent Hd (Fluzone Hd) 05/28/2021 Seasonal Influenza, Quadriva lent, No Preserve, IM 03/25/2016 Seasonal Influenza, Split, I IV3, With Preserve, Inj 06/30/2015,05/01/2013,03/29/2012,03/25,05/29/2010,04/23/2009,04/18/2008 ,04/10/2007 TD, Preservative Free 03/27/2018 TDAP (age 11 and older)(Adacel) 08/17/2007 Zoster Vaccine Recombinant (Shingrix) 10/20/2018 documented as of this encounter Social History Tobacco Use Types Packs/Day Years Used Date Smoking Tobacco: Former Cigarettes 2 23 Q uit: 06/27/1984 Smokeless Tobacco: Never Tobacco Cessation:Counseling Given: Not Answered Alcohol Use Standard Drinks/Week Comments No 0 (1 standard drink = 0.6 oz pur e alcohol) Sex Assigned at Date Recorded Male 10/10/2018 8:56 AM E DT Job Start Date Occupation Industry Not on file Not on file Not on file documented as of this encounter Last Filed Vital Signs Vital Sign Reading Time Taken Comments Blood Pressure 126/76 03/13/2023 2:23 PM EDT Pulse 67 03/13/2023 2:23 PM EDT Temperature 35.7 C (96.3 F) 03/13/2023 2:23 PM ED T Respiratory Rate 16 03/13/2023 2:23 PM EDT Oxygen Saturation 96% 03/13/2023 2:23 PM EDT Inhaled Oxygen Concentration - - Weight 81.8 kg (180 lb 6.4 oz) 03/13/2023 2:23 P M EDT Height 171.5 cm (5' 7.5") 03/13/2023 2:23 PM EDT Body Mass Index 27.84 03/13/2023 2:23 PM EDT documented in this encounter Functional Status Functional Status Response Date of Assess ment Are you deaf or do you have serious difficulty h earing? No 10/01/2017 Are you blind or do you have serious difficulty seeing, even when wearing glasses? No 10/01/2017 Do you have serious difficul ty walking or climbing stairs? (5 years old or older) No 10/01/2017 Do you have difficulty dress ing or bathing? (5 years old or older) No 10/01/2017 Because of a physical, menta l, or emotional condition, do you have difficulty doing errands alone such as visiting a doctor s office or shopping? (15 years old or older) No 10/02/19 18 Cognitive Status Response Date of Assessm ent Because of a physical, menta l, or emotional condition, do you have serious difficulty concentrating, remembering, or making decisions? (5 years old or older No 10/01/2017 documented as of this encounter Progress Notes * JEANINE Naqvi - 03/13/2023 2:36 PM EDT Subjective Antonio Tellez is a 77 year old male that presents for Ear Pain HPI: Patient presents with right ear pressure and significant decrease in hearing x4 days. Denies any cold or flu like symptoms, no fevers or chills. He has not taken any OTC medications or topical applications. Objective BP 126/76 (BP Site: Left Arm, BP Position: Sitting, BP Cuff Size: Regular) | Pulse 67 | Temp 35.7 C (96.3 F) (Tympanic) | Resp 16 | Ht 1.715 m (5' 7.5") | Wt 81.8 kg (180 lb 6.4 oz) | SpO2 96% | BMI 27.84 kg/m | BSA 1.97 m Body mass index is 27.84 kg/m. BP Readings from Last 3 Encounters: 03/13/23 126/76 10/28/22 132/76 10/04/22 138/72 Wt Readings from Last 3 Encounters: 03/13/23 81.8 kg (180 lb 6.4 oz) 10/28/22 85.3 kg (188 lb) 10/04/22 86.2 kg (190 lb) Physical Exam Constitutional: Appearance: Normal appearance. He is normal weight. HENT: Right Ear: Decreased hearing noted. There is impacted cerumen. Tympanic membrane is erythematous. Nose: Nose normal. Mouth/Throat: Mouth: Mucous membranes are moist. Pharynx: Oropharynx is clear. Musculoskeletal: Cervical back: Normal range of motion and neck supple. Neurological: Mental Status: He is alert. None Assessment and plan 1. Impacted cerumen of right ear -Removal of small amount of wax through lavage. 2. Acute otitis externa of right ear, unspecified type - Ofloxacin 0.3 % Otic Solution (Floxin); Administer 5 Drops into ears in the morning and 5 Drops before bedtime. Do all this for 10 days. In affected ear for 10 days.. Dispense: 5 mL; Refill: 0 Follow up Follow Up: Return if symptoms worsen or fail to improve. Total time today including reviewing chart before the visit, pertinent labs, imaging reports, face to face time, and documentation time was 22 minutes. The above was discussed and understanding was expressed. JEANINE Whiteside documented in this encounter Nursing Notes * Amy Watts LPN - 03/13/2023 2:28 PM EDT Antonio Tellez,is a 77 year old male, who presents to the walk in clinic today c/o right ear pain/diminished hearing for four days. Did not use any OTC meds. documented in this encounter Plan of Treatment Upcoming Encounters Date Type Specialty Care Team Description 04/22/2023 Cardiac Studies Cardiac Studies 04/29/2023 Office Visit Cardiology Polina Anne CRNP [address] [place] [id number] 11/07/2023 Office Visit Cardiology Polina Coyne CRNP [address] [place] [address] Scheduled Procedures Name Priority Associated Diagnoses Date/Ti me COLONOSCOPY FLEXIBLE PROXIMAL DIAGNOSTIC Recall History of colon polyps Health Maintenance Due Date Last Done Comments Alpha-1 Antitrypsin 09/03/1961 Hepatitis C Screening 09[birth year]03/1963 Zoster Vaccines (2 of 2) 12/15/2018 10/20/2018 Depression Screening 08/26/2020 08/27/2019 DXA Scan 02/20/2021 02/20/2019, 09/26, 07/01/2011 COVID-19 Vaccine (4 - Pfizer risk series) 06/17/2021 04/22/2021, 08/22/2020, 08/01/2020 GFR 02/15/2023 02/15/2022, 10/25, 08/27/2019, Additional history exists Influenza Vaccine (FLU shot) (#1) 2023 05/28/2021, 03/27/2018, 07/13/2017, Additional history exists O2 ASSESSMENT COMPLETED IN PAST YEAR FOR COPD 10/05/2023 03/13/2023 Albumin/Creatinine Ratio 02/15/2025 02/15/2022 DTaP,Tdap,and Td Vaccines (3 - Td or Tdap) 03/27/2028 03/27/2018, 08/17/2007, 01/25/1993, Additional history exists VITAMIN D LEVEL ONCE IN A LIFETIME-USE SMARTSET# [id number] Completed 10/15/2009, 08/26/2009, 06/19/2009, Additional history exists COLONOSCOPY-EVERY 5 YRS AGES 18-100 Discontinued 12/21/2016, 12/21/2016, 09/29/2011, Additional history exists Pneumococcal Vaccine: 65+ Years Completed 07/13/2017, 04/27/2016, 08/17/2007 GARDASIL-HPV IMMUNIZATION SERIES Aged Out No longer eligible based on patient's age to complete this topic Hepatitis B Aged Out No longer eligi ble based on patient's age to complete this topic MENINGOCOCCAL (MENACTRA/MENVEO) Aged Out No longer eligible based on patient's age to complete this topic documented as of this encounter Medical Devices Implanted Type Area Leather Worker Device Identifier Shelf Expiration Date Model / Serial / Lot Suture Steel 6 B&S19 [id number] - [id number] Implanted:Qty: 1 on 10/03/2017 by Steve Henson MD at [place] [facility] [place]A: Sternum BJ : [employer] 02/24/2022 [id number] / / [id number] documented as of this encounter Visit Diagnoses Diagnosis Impacted cerumen of right ear- Primary Impacted cerumen Acute otitis externa of right ear, unspecified type documented in this encounter Advance Directives Latest Code Status on File Code Status Date Activated Date Inactivated Comments Full Code 10/03/2017 12:36 PM 10/08/2017 3:26 PM This order reflects the patients wishes and were consensually agreed upon. Code Status History Code Status Date Activated Date Inactivated Comments Full Code 09/30/2017 9:13 PM 10/03/2017 12:36 PM This o rder reflects the patients wishes and were consensually agreed upon. Care Teams Manager Statistics Relationship Specialty Start Date End Date Isaak Castro, DO [address] [place] [address] PCP - General Family Medicine 05/03/16 documented as of this encounter
--- OUTSIDE RECORDS SUMMARY | 2023-05-06 14:13 | External Medical Summary | Summary of Care ---
Author Name Unknown Organization [facility] Address [address] [facility] [place] [address] Phone [phone] Care Team Providers Care Web Pressman Name Role Phone OrvilleIsaak kemp DO Primary Care Provider [phone] Encounter Details Date Type Department Care Team (Late st Contact Info) Description 04/22/2023 Telephone Cardiology, [facility] [address] [place] [address] Polina Coyne CRNP [address] [facility] [place] [id number] Allergies Active Allergy Reactions Criticality Noted Date Comments Adalimumab 03/25/2016 Drug rash documented as of this encounter (statuses as of 04/22/2023) Medications Medication Sig Dispensed Refills Start Date [...] Hour (toPROL XL)Indications:Waters ry artery disease involving paimiut coronary artery of paimiut heart without angina pectoris,Paroxysmal atrial fibrillation (HCC),Dyslipidemia, goal LDL below 70 TAKE 1/2 TABLET BY MOUTH EVERY MORNING and take 1 tablet every evening 135 Tablet 3 10/28/2022 Active Rosuvastatin Calcium 20 MG Oral Tablet (Crestor) Take 1 Tablet by mouth in the morning. 90 Tablet 3 10/28/2022 Active documented as of this encounter (statuses as of 04/22/2023) Active Problems Problem Noted Date Diagnosed Date Age-related osteoporosis wit hout current pathological fracture 11/11/2020 Atherosclerosis of paimiut co ronary artery of paimiut heart without angina pectoris 08/27/2019 Gastroesophageal reflux disease without esophagi tis 08/27/2019 Chronic obstructive pulmonary disease 03/27/2018 Old MT (myocardial infarction) 03/27/2018 Dyslipidemia, goal LDL below 70 02/17/2018 S/P CABG x 3 01/03/2018 Paroxysmal VT 01/03/2018 Paroxysmal atrial fibrillation 01/03/2018 Essential hypertension with goal blood pressure less than 130/80 01/03/2018 Laryngitis, chronic 09/28/2011 Anemia 03/25/2011 left lateral rectus palsy 06/03/2008 Chronic rhinitis 12/26/2007 Sensorineural hearing loss, bilateral 12/26/2007 Iron deficiency anemia 10/02/2007 ADVANCE DIRECTIVE INFORMATION 07/14/2005 Overview: No, Advance Directive brochure offered , patient declined. Chronic sinusitis 06/09/2002 Arthritis, rheumatoid 10/25/2001 GENERAL OSTEOARTHROSIS History of colonic polyps Overview: 09/29/11: [facility] colonoscopy, diffuse inflammation, c dif found no polyps, treated with clearing 05/26/10: adenoma, repeat in 2012 ICD-10 update of inactive term documented as of this encounter (statuses as of 04/22/2023) Resolved Problems Problem Noted Date Diagnosed Date Resolved Date Rheumatic heart failure 03/27/2018 03/0 07/2019 Recurrent sinusitis 09/28/2011 03/27/20 18 Renal calculi 09/03/2011 11/22/[address] of the abdomen 08/15/2011 1 Overview: Transverse colon, splenic flexure and descending colon wall thickening. Rectal bleed 08/15/2011 03/27/2018 Clostridium difficile infection 08/15/2011 11/22/2018 Body aches 08/13/2011 03/27/2018 H. pylori infection 08/14/2010 03/27/20 18 VOICE DISTURBANCE ,hoarseness 12/26/2007 03/27/2018 Sciatica 07/14/2005 11/22/2018 Other osteoporosis without c urrent pathological fracture 07/14/2005 05/14/2020 Overview: ICD-10 update of inactive term ACUTE URI NOS 06/09/2002 07/26/2002 H. pylori infection 11/23/19 19 Overview: egd, gastric biopsy documented as of this encounter (statuses as of 04/22/2023) Immunizations Name Administration Dates Next Due COVID-19 mRNA, LNP-s, No Pre serve, 2-Dose Series (Pfizer) 08/22/2020,08/01/2020 Pneumococcal Conjugate Vacc, 13 Valent (Prevnar) 04/27/2016 Pneumococcal Polysaccharide PPV23 (Pneumovax) 07/13/2017,08/17/2007 SEASONAL INFLUENZA, PF, 6 M & Above, IM , (FLULAVAL or FLUZONE) 03/27/2018,07/13/2017 Seasonal Influenza, Quadriva lent Hd (Fluzone [...] 23 Q uit: 06/27/1984 Smokeless Tobacco: Never Alcohol Use Standard Drinks/Week Comments No 0 (1 standard drink = 0.6 oz pur e alcohol) PHQ-2 Answer Date Recorded PHQ-2 Score 0 08/27/2019 Sex and Gender Information Value Date Recorded Sex Assigned at Male 10/10/2018 8:56 AM EDT Gender Identity Male 10/10/2018 8:56 AM EDT Sexual Orientation Straight 10/10/2018 8: 56 AM EDT Job Start Date Occupation Industry Not on file Not on file Not on file documented as of this encounter Functional Status Functional Status Response [...] No 10/01/2017 documented as of this encounter Miscellaneous Notes * Telephone Encounter - Neelam Wagner LPN - 04/22/2023 10:29 AM EDT Letter sent * Telephone Encounter - Neelam Wagner LPN - 04/22/2023 10:29 AM EDT ----- Message from JEANINE Williamson sent at 04/22/2023 9:12 AM EDT ----- Echocardiogram showed a normal LVEF 55-59%. Hypokinesis of the posterior wall and inferior septum, known and unchanged. Mild aortic sclerosis with mild regurgitation (unchanged). Mild MR (unchanged).Mild pulmonary hypertension. Aortic root measured at 4.0 cm (stable). No changes needed at this time. documented in this encounter Plan of Treatment Upcoming Encounters Date Type Department Care Team (Late st Contact Info) Description 04/29/2023 10:30 AM EDT Office Visit Cardiology, [facility] [address] [facility] [place] [address] Polina Anne CRNP [address] [place] [address] [place] [phone] 11/07/2023 1:30 PM EDT Office Visit Cardiology, [facility] [address] [place] [address] Polina Coyne CRNP [address] [place] [address] Scheduled Procedures Name Priority Associated Diagnoses Date/Ti me COLONOSCOPY FLEXIBLE PROXIMAL DIAGNOSTIC Recall History of colon polyps Health Maintenance Due Date Last Done Comments Alpha-1 Antitrypsin 09[birth year]03/1963 Hepatitis C Screening 09/03/1963 Zoster Vaccines (2 of 2) 12/15/2018 10/20/2018 Depression Screening 08/26/2020 08/27/2019 DXA Scan 02/20/2021 02/20/2019, 09/26, 07/01/2011 GFR 02/15/2023 02/15/2022, 10/25, 08/27/2019, Additional history exists COVID-19 Vaccine ( season) 2023 04/22/2021, 08/22/2020, 08/01/2020 Influenza Vaccine (FLU shot) (#1) 2023 05/28/2021, 03/27/2018, 07/13/2017, Additional history exists O2 ASSESSMENT COMPLETED IN PAST YEAR FOR COPD 03/13/2024 03/13/2023 Albumin/Creatinine Ratio 02/15/2025 02/15/2022 DTaP,Tdap,and Td Vaccines (3 - Td or Tdap) 03/27/2028 03/27/2018, 08/17/2007, 01/25/1993, Additional history exists VITAMIN D LEVEL ONCE IN A LIFETIME-USE SMARTSET# [id number] Completed 10/15/2009, 08/26/2009, 06/19/2009, Additional history exists [...] this encounter Medical Devices Implanted Type Area Track Welder Device Identifier Shelf Expiration Date Model / Serial / Lot Suture Steel 6 B&S19 [id number] - [id number] Implanted:Qty: 1 on 10/03/2017 by Steve Henson MD at [place] [facility] [place]A: Sternum JNIsabela : [employer] 02/24/2022 [id number] / / [id number] documented as of this encounter Advance Directives Latest Code Status [...] and were consensually agreed upon. Care Teams Web Pressman Relationship Specialty Start Date End Date Isaak Castro DO [address] [place] [address] PCP - General Family Medicine 05/03/16 documented as of this encounter
--- OUTSIDE RECORDS SUMMARY | 2023-05-06 14:13 | External Medical Summary | Summary of Care ---
Author Name Unknown Organization [facility] Address [address] [place] [address] Phone [phone] Care Team Providers Care County Extension Agent Name Role Phone Isaak Castro DO Primary Care Provider [phone] Reason for Visit * Reason Onset Date Comments Health Maintenance 03/18/2023 Encounter Details Date Type Department Care Team Description 03/18/2023 Telephone Family Practice [facility] [place] [address] [place] [address] Isaak Castro DO 200 [facility] [place] [address] Health Maintenance Allergies Active Allergy Reactions Severity Noted Date Comments Adalimumab 03/25/2016 Drug rash documented as of this encounter (statuses as of 03/18/2023) Medications Medication Sig Dispensed Refills Start Date [...] 108 (90 Base) MCG/ACT Inhalation Aerosol SolutionIndications:W alejaing INHALE TWO PUFFS BY MOUTH TWO TIMES [...] Hour (toPROL XL)Indications:[place] artery disease involving [place] coronary artery of [place] heart without angina pectoris,Paroxysmal atrial fibrillation (HCC),Dyslipidemia, [...] as of this encounter (statuses as of 03/18/2023) Active Problems Problem Noted Date Age-related osteoporosis without current pathological fracture 11/11/2020 Atherosclerosis of [place] co ronary artery of [place] heart without angina pectoris 08/27/2019 Gastroesophageal reflux disease without esophagitis 08/27/2019 Chronic obstructive pulmonary disease [place] (myocardial infarction) 8 Dyslipidemia, goal LDL below [...] OSTEOARTHROSIS History of colonic polyps Overview: 09/29/11: [facility] colonoscopy, diffuse inflammation, c dif found no polyps, treated with clearing 05/26/10: adenoma, repeat in 2012 ICD-10 update of inactive term documented as of this encounter (statuses as of 03/18/2023) Resolved Problems Problem Noted Date Resolved Date [...] as of this encounter (statuses as of 03/18/2023) Immunizations Name Administration Dates Next Due COVID-19 mRNA, LNP-s, No Pre serve, 2-Dose Series (Tissue Genesis) 08/22/2020,08/01/2020 Pneumococcal Conjugate Vacc, 13 Valent (Prevnar) [...] encounter Miscellaneous Notes * Telephone Encounter - Kelly Wick LPN - 03/18/2023 2:01 PM EDT Care Gaps Comprehensive Care Outreach Last Office/Telemedicine Visit: 08/16/2022 (in office), Visit date not found (telemedicine) Next Office Visit: Visit date not found Hemoglobin AIC Results: Lab Results Component Value Date/Time HEMOGLOBIN A1C - [facility] 6.2 (H) 08/27/2019 12:37 PM HEMOGLOBIN A1C - [facility] 5.7 09/30/2017 09:40 PM Reviewed Health Maintenance below: Health Maintenance Topic Date Due Alpha-1 Antitrypsin Never done Hepatitis C Screening Never done Zoster Vaccines (2 of 2) 12/15/2018 Depression Screening 08/26/2020 DXA Scan 02/20/2021 COVID-19 Vaccine (4 - Pfizer risk series) 06/17/2021 GFR 02/15/2023 Influenza Vaccine (FLU shot) (1) 02/25/2023 awv Ov Dexa labs Care Gap Outreach Action Taken: Left message documented in this encounter Plan of Treatment Upcoming Encounters Date Type Specialty Care Team Description 04/22/2023 Cardiac Studies Cardiac Studies 04/29/2023 Office Visit Cardiology Polian Anne CRNP [address] [place] [address] [place] [id number] 11/07/2023 Office Visit Cardiology Polina Coyne CRNP [address] [place] [address] Scheduled Procedures Name Priority Associated Diagnoses Date/Ti [...] D LEVEL ONCE IN A LIFETIME-USE SMARTSET# [id number] Completed 10/15/2009, 08/26/2009, 06/19/2009, Additional history exists [...] this encounter Medical Devices Implanted Type Area Marine Surveyor Device Identifier Shelf Expiration Date Model / Serial / Lot Suture Steel 6 B&S19 M654g - [id number] Implanted:Qty: 1 on 10/03/2017 by Steve Henson MD at OR [facility] N/A: Sternum JNJ : [employer] 02/24/2022 [id number] / / [id number] documented as of this encounter Advance Directives [...] and were consensually agreed upon. Care Teams County Extension Agent Relationship Specialty Start Date End Date Isaak Castro, DO [address] [place] [address] PCP - General Family Medicine 05/03/16 documented as of this encounter
--- OUTSIDE RECORDS SUMMARY | 2023-05-06 14:14 | External Medical Summary | Summary of Care ---
Author Name Unknown Organization [facility] Address [address] [facility] [place] [address] Phone [phone] Care Team Providers Care Hem Inspector Name Role Phone Isaak Castro DO Primary Care Provider [phone] Reason for Visit * Reason Onset Date Comments Medical Records Request 02/08/2023 [facility] Encounter Details Date Type Department Care Team Description 02/08/2023 Telephone Family Practice [facility] [place] [address] [facility] [place] [address] Isaak Castro DO 200 [facility] [place] [address] Medical Records Request ([facility] Allergies Active Allergy Reactions Severity Noted Date Comments Adalimumab 03/25/2016 Drug rash documented as of this encounter (statuses as of 02/08/2023) Medications Medication Sig Dispensed Refills Start Date [...] Hour (toPROL XL)Indications:[place] artery disease involving [place] coronary artery of [place] heart without angina pectoris,Paroxysmal atrial fibrillation (HCC),Dyslipidemia, goal LDL below 70 TAKE 1/2 TABLET BY MOUTH EVERY MORNING and take 1 tablet every evening 135 Tablet 3 10/28/2022 Active Rosuvastatin Calcium 20 MG Oral Tablet (Crestor) Take 1 Tablet by mouth in the morning. 90 Tablet 3 10/28/2022 Active documented as of this encounter (statuses as of 02/08/2023) Active Problems Problem Noted Date Age-related osteoporosis without current pathological fracture 11/11/2020 Atherosclerosis of [place] co ronary artery of [place] heart without angina pectoris 08/27/2019 Gastroesophageal reflux disease without esophagitis 08/27/2019 Chronic obstructive pulmonary disease [place] (myocardial infarction) 8 Dyslipidemia, goal LDL below [...] OSTEOARTHROSIS History of colonic polyps Overview: 09/29/11: [facility] colonoscopy, diffuse inflammation, c dif found no polyps, treated with clearing 05/26/10: adenoma, repeat in 2012 ICD-10 update of inactive term documented as of this encounter (statuses as of 02/08/2023) Resolved Problems Problem Noted Date Resolved Date [...] as of this encounter (statuses as of 02/08/2023) Immunizations Name Administration Dates Next Due COVID-19 mRNA, LNP-s, No Pre serve, 2-Dose Series (Pfizer) 08/22/2020,08/01/2020 Pneumococcal Conjugate Vacc, 13 Valent (Prevnar) 04/27/2016 Pneumococcal Polysaccharide PPV23 (Pneumovax) 07/13/2017,08/17/2007 Seasonal Influenza, Quadriva lent Hd (Fluzone Hd) 05/28/2021 Seasonal Influenza, Quadriva lent, No Preserve, 6 Mons & Above, IM 03/27/2018,07/13/2017 Seasonal Influenza, Quadriva lent, No Preserve, IM [...] encounter Miscellaneous Notes * Telephone Encounter - TUTU Connell - 02/08/2023 1:20 PM EDT Medical Record Request Med Recs from [facility] Med Recs forwarded to [facility] documented in this encounter Plan of Treatment Upcoming Encounters Date Type Specialty Care Team Description 04/22/2023 Office Visit Cardiology Polina Anne CRNP [address] [place] [phone] 11/07/2023 Office Visit Cardiology Polina Coyne CRNP [address] [place] [address] Scheduled Procedures Name Priority Associated Diagnoses Date/Ti me COLONOSCOPY FLEXIBLE PROXIMAL DIAGNOSTIC Recall History of colon polyps Health Maintenance Due Date Last Done Comments Alpha-1 Antitrypsin 09[birth year]03/1963 Hepatitis C Screening 09[birth year]03/1963 Zoster Vaccines (2 of 2) 12/15/2018 10/20/2018 Depression Screening, Annual for Pts 12 and Over 08/26/2020 08/27/2019 DXA Scan 02/20/2021 02/20/2019, 09/26, 07/01/2011 COVID-19 Vaccine (4 - Pfizer risk series) 06/17/2021 04/22/2021, 08/22/2020, 08/01/2020 GFR 02/15/2023 02/15/2022, 10/25, 08/27/2019, Additional history exists Influenza Vaccine (FLU shot) (#1) 2023 05/28/2021, 03/27/2018, 07/13/2017, Additional history exists O2 ASSESSMENT COMPLETED IN PAST YEAR FOR COPD 10/05/2023 10/04/2022 Albumin/Creatinine Ratio 02/15/2025 02/15/2022 DTaP,Tdap,and Td Vaccines (3 - Td or Tdap) 03/27/2028 03/27/2018, 08/17/2007, 01/25/1993, Additional history exists VITAMIN D LEVEL ONCE IN A LIFETIME-USE SMARTSET# [id number] Completed 10/15/2009, 08/26/2009, 06/19/2009, Additional history exists [...] this encounter Medical Devices Implanted Type Area Prototype Assembler Electronics Device Identifier Shelf Expiration Date Model / Serial / Lot Suture Steel 6 B&S19 M654g - [id number] Implanted:Qty: 1 on 10/03/2017 by Steve Henson MD at [place] [facility] [place] [place] N/A: Sternum JNJ : [employer] 02/24/2022 [id number] / / [id number] documented as of this encounter Advance Directives [...] and were consensually agreed upon. Care Teams Hem Inspector Relationship Specialty Start Date End Date Isaak Castro, DO [address] [facility], [place] [id number] PCP - General Family Medicine 05/03/16 documented as of this encounter
--- OUTSIDE RECORDS SUMMARY | 2023-05-06 14:14 | External Medical Summary | Summary of Care ---
Author Name Unknown Organization [facility] Address [address] [facility] [place] [address] Phone [phone] Care Team Providers Care Mid Level Developer Name Role Phone Isaak Castro DO Primary Care Provider [phone] Reason for Visit * Reason Onset Date Comments Test Results 11/17/2022 zio Encounter Details Date Type Department Care Team Description 11/17/2022 Telephone Cardiology, [facility] [address] [place] [address] Polina Coyne CRNP [address] [facility] [place] [address] Test Results (zio) Allergies Active Allergy Reactions Severity Noted Date Comments Adalimumab 03/25/2016 Drug rash documented as of this encounter (statuses as of 11/19/2022) Medications Medication Sig Dispensed Refills Start Date [...] Hour (toPROL XL)Indications:[place] artery disease involving [place] coronary artery of [place] heart without angina pectoris,Paroxysmal atrial fibrillation (HCC),Dyslipidemia, goal LDL below 70 TAKE 1/2 TABLET BY MOUTH EVERY MORNING and take 1 tablet every evening 135 Tablet 3 10/28/2022 Active Rosuvastatin Calcium 20 MG Oral Tablet (Crestor) Take 1 Tablet by mouth in the morning. 90 Tablet 3 10/28/2022 Active documented as of this encounter (statuses as of 11/19/2022) Active Problems Problem Noted Date Age-related osteoporosis without current pathological fracture 11/11/2020 Atherosclerosis of [place] co ronary artery of [place] heart without angina pectoris 08/27/2019 Gastroesophageal reflux disease without esophagitis 08/27/2019 Chronic obstructive pulmonary disease Old [place] (myocardial infarction) 8 Dyslipidemia, goal LDL below [...] OSTEOARTHROSIS History of colonic polyps Overview: 09/29/11: [facility] colonoscopy, diffuse inflammation, c dif found no polyps, treated with clearing 05/26/10: adenoma, repeat in 2012 ICD-10 update of inactive term documented as of this encounter (statuses as of 11/19/2022) Resolved Problems Problem Noted Date Resolved Date [...] as of this encounter (statuses as of 11/19/2022) Immunizations Name Administration Dates Next Due COVID-19 [...] encounter Miscellaneous Notes * Telephone Encounter - Angela Titus LPN - 11/19/2022 8:40 AM EDT Spoke with patient by phone, gave information in this encounter. Verbalized understanding Agreed to plan of care. * Telephone Encounter - Neelam Wagner LPN - 11/17/2022 10:12 AM EDT Attempt to call patient unsuccessful; left message on patient's home/work/mobile phone to call back. Upon return call please advise of results and recommendations. * Telephone Encounter - Neelam Wagner LPN - 11/17/2022 10:10 AM EDT ----- Message from JEANINE Williamson sent at 11/17/2022 8:03 AM EDT ----- Zio monitor reviewed. Overall appears generally stable compared to Zio dated in 2020. Patient is not having any symptoms per the report. As long as he is feeling well no changes will be made at this time. Please let him know that I will show the strips to Dr. Crawford and if any further changes needmade I will contact him. Otherwise keep follow-up appointment with electrophysiology in the fall- report any symptoms of lightheadedness, dizziness or syncope should they occur. documented in this encounter Plan of Treatment Upcoming Encounters Date Type Specialty Care Team Description 01/05/2023 Cardiac Studies Cardiac Studies 04/22/2023 Office Visit Cardiology Kassidy Crawford, DO [address] [place] [address] 11/07/2023 Office Visit Cardiology Polina Coyne CRNP [address] [place] [address] Scheduled Procedures Name Priority Associated Diagnoses Date/Ti me COLONOSCOPY FLEXIBLE PROXIMAL DIAGNOSTIC Recall History of colon polyps Health Maintenance Due Date Last Done Comments Alpha-1 Antitrypsin 09[birth year]03/1963 Hepatitis C Screening 09[birth year]03/1963 Zoster Vaccines (2 of 2) 12/15/2018 10/20/2018 Depression Screening, Annual for Pts 12 and Over 08/26/2020 08/27/2019 DXA Scan 02/20/2021 02/20/2019, 09/26, 07/01/2011 COVID-19 Vaccine (4 - Booster for Pfizer series) 06/17/2021 04/22/2021, 08/22/2020, 08/01/2020 GFR 02/15/2023 02/15/2022, 10/25, 08/27/2019, Additional history exists Influenza Vaccine (FLU shot) (Season Ended) 2023 05/28/2021, 03/27/2018, 07/13/2017, Additional history exists O2 ASSESSMENT COMPLETED IN PAST YEAR FOR COPD 10/05/2023 10/04/2022 Albumin/Creatinine Ratio 02/15/2025 02/15/2022 DTaP,Tdap,and Td Vaccines (3 - Td or Tdap) 03/27/2028 03/27/2018, 08/17/2007, 01/25/1993, Additional history exists VITAMIN D LEVEL ONCE IN A LIFETIME-USE SMARTSET# [id number] Completed 10/15/2009, 08/26/2009, 06/19/2009, Additional history exists [...] this encounter Medical Devices Implanted Type Area Clinical Social Work Aide Device Identifier Shelf Expiration Date Model / Serial / Lot Suture Steel 6 B&S19 M654g - [id number] Implanted:Qty: 1 on 10/03/2017 by Steve Henson MD at [place] [facility] [place] N/A: Sternum JNJ : [employer] 02/24/2022 [id number] / / [id number] documented as of this encounter Advance Directives [...] and were consensually agreed upon. Care Teams Mid Level Developer Relationship Specialty Start Date End Date Isaak Castro, DO [address] [place] [address] PCP - General Family Medicine 05/03/16 documented as of this encounter
== END 2023-05-04 12:26 | disposition home or self-care (01) | DRG 824 ==
LOC: 3W 20:16 → ED 20:16 → 3W 05-02 02:17

== ENCOUNTER 2023-11-26 14:08 | Inpatient (IN) ==
--- NOTE | 2023-11-26 14:31 | Emergency Department Note ---
Impression & Plan Syncope, Borderline results on serologic testing for Lyme disease, History of coronary artery disease ED Provider Note Provider: Mariano Donnelly MD DATE OF SERVICE: 11/26/2023 CHIEF COMPLAINT: Syncope HISTORY OF PRESENT ILLNESS: Patient is a 78-year-old past medical history significant prostate cancer, CAD status post CABG in tachybradycardia syndrome/SVT/a flutter status post maze procedure presenting here today via ambulance from [facility]. Went there for a vision screen today. States feeling well and had breakfast. States yesterday he was mowing grass for several hours on a riding mower and did injure his left shoulder but which continues to be sore after trying to move a branch out of the way with it. Patient states the vision exam began to feel very tremulous. He denies losing consciousness and states staff there felt he did lose consciousness briefly. Patient states he closed his eyes. Denies chest pain but still having pain of the left shoulder. States he does have a cardiac history but not on blood thinners currently. States at times gotten some hot flashes like today but not severe tremoring with his prostate cancer treatment. Denies shortness of breath. Denies recent cough or cold or fevers. Denies any abdominal pain or nausea or vomiting. Denies leg swelling. States he distantly has a history of some A-fib and extra heartbeats but after his heart surgery and a procedure there he has not had issues with it. No significant trauma reported by patient or or EMS. EMS does report the patient's had frequent episodes of PACs and PVCs on monitoring for them and route. PAST MEDICAL HISTORY: As noted above MEDICATIONS: Reviewed home medication list SOCIAL HISTORY: , distant former smoker PHYSICAL EXAM: GENERAL: alert and oriented in no acute distress on stretcher Head: normocephalic and atraumatic EYES: No injection, discharge or icterus. PERRL, EOMI. NECK: Trachea midline with good range of motion ENT: Mucous membranes pink and moist. LUNGS: Airway patent. No retractions. Breath sounds clear with good air entry bilaterally. HEART: Regular rate and rhythm. No chest wall tenderness ABDOMEN: Soft and non-tender, without guarding or rebound. SKIN: Acyanotic, warm, dry, without rashes EXTREMITIES: Without swelling, tenderness or deformity some tenderness around left shoulder and pain with basically abduction and or full flexion. No significant tenderness to the left elbow or forearm. NEUROLOGICAL: No focal deficits. No aphasia. No facial droop or slurred speech. Normal strength and tone in the extremities. Sensation to gross touch normal. EK beats per normal sinus rhythm. No PVC or PAC. No acute ST segment elevation or depression with QTc of 450. CONTINUOUS CARDIAC MONITORING: was ordered and showed a heart rate of 70s-80s bpm in normal sinus rhythm occasional PVC and runs of PACs GCS 15. Patient's laboratory studies and imaging reviewed. Differential includes Vasovagal event, dehydration, infection, hypoglycemia, electrolyte abnormalities, cardiac sources, intracerebral event, pulmonary embolism, seizure, toxicologic, neurologic, as well as other pathologies. IMPRESSION/MEDICAL DECISION MAKING: Patient with cardiac history. Having ectopy. Will obtain blood work and electrolytes. Will send troponin more having reproducible left shoulder pain likely muscular. Will obtain a CT of the head to exclude abnormality given that he has a history of cancer as well as possible LOC. No focal deficits moving all extremities. No significant signs of fluid overload or swelling of the legs. Will send Lyme and anaplasmosis screen given his outdoor nature to look for any infectious etiology. Benign abdomen however. Denies respiratory symptoms. Lower suspicion for PE given the quick resolution of symptoms and his lack of shortness of breath. Question if he may be having cardiac arrhythmia. Review of prior notes states several years ago the patient had periods of NSVT as well as atrial flutter that responded to amiodarone. Blood work here without significant anemia. No leukocytosis. Normal electrolytes and renal function. No significant evidence of hepatitis. Normal troponin upon arrival blood work. Lyme test questionable for infection. Will cover with the ceftriaxone as they state that he has been intolerant of doxycycline before. Urinalysis not convincing for infection. TSH normal. If feeling better at this point but unsure what this episode was earlier today. Will bring in for further cardiac monitoring and evaluation. Patient and in agreement. Hospitalist contacted. DIAGNOSIS: Syncope, positive Lyme screen DISPOSITION: Hospitalist will evaluate Patient was agreeable with this plan. Past Med/Surg History Problem List (Updated 11/26/23 @ 18:43 by Mariano Donnelly M.D.) History of coronary artery disease (Acute) Borderline results on serologic testing for Lyme disease (Acute) Syncope (Acute) Left nephrolithiasis Prostate CA ARF (acute renal failure) Pelvic lymphadenopathy (Acute) Lymphadenopathy, retroperitoneal (Acute) Acute unilateral obstructive uropathy (Acute) PVCs (premature ventricular contractions) (Acute) Atrial fibrillation (Chronic) Rheumatoid arthritis (Chronic) Coronary artery disease (Chronic) Spinal stenosis, lumbar region with neurogenic claudication (Acute) Generalized osteoarthritis (Chronic 07/15/11) Palpitations Rectal hemorrhage (07/15/11) Sensorineural hearing loss, bilateral (Chronic 07/15/11) Tachycardia Medical History CAD (coronary artery disease) s/p CABG 09/2017 History of ischemic cardiomyopathy 2/ sustained v. tach. Interval improvement in EF. Spinal stenosis Gout Osteoarthritis BPH (benign prostatic hyperplasia) Rheumatoid arthritis GERD (gastroesophageal reflux disease) Atrial fibrillation s/p Maze procedure/pulm vein isolation/BOLIVAR clip 09/2017. No known recurrence of Afib since. Myocardial Infarction 1986 Hypertension Hyperlipidemia Chronic obstructive pulmonary disease Surgical History History of carpal tunnel release Fusion of spine History of tooth extraction History of tonsillectomy History of coronary artery bypass graft 09/2017 X 3 VESSELS (GARCIA-LAD, SVG-PDA, SVG-OM2) AT COUNTS INCLUDE 234 BEDS AT [facility] History of cardiac cath 1986 NO STENTS 2017 NO STENTS Family History Brother Family history of diabetes mellitus Grandmother (Maternal) Family history of diabetes mellitus Social History Smoking Status: Former smoker Tobacco Type: Cigarettes Second Hand Exposure: No; Do You Dip or Chew Tobacco: No; Hx Alcohol Use: No Hx Substance Use: No Preferred Language: [place] Communication Ability: Effective Visual Impairment: No Limitations Assistant Branch Manager Required: No Beliefs That Will Affect Care: None marital status: Current Living Situation: Spouse Feels Safe at Home: Yes Assistive Devices: Walker Allergies Allergies Allergy/AdvReac Type Severity Reaction Status Date / Time adalimumab [From Humira] Allergy Intermediate WAS NOT Verified 09/22/23 10:20 EFFECTED FOR TREATMENT Home Meds Home Medications Medication Instructions Recorded Confirmed aspirin 81 mg tablet,delayed 81 mg PO QAM 01/25/19 09/22/23 release celecoxib 200 mg capsule (Celebrex) 200 mg PO QAM 01/25/19 09/22/23 coQ10 (ubiquinol) 200 mg capsule 200 mg PO QPM 01/25/19 09/22/23 folic acid 1 mg tablet 1 mg PO DAILY 01/25/19 09/22/23 rosuvastatin 20 mg tablet 20 mg PO QPM 01/25/19 09/22/23 vitamin E 268 mg (400 unit) capsule 200 unit PO DAILY 01/25/19 09/22/23 abatacept (with maltose) 250 mg ml IV 05/02/23 09/22/23 intravenous solution (Orencia (with maltose)) albuterol sulfate 90 mcg/actuation 2 puff inhalation BID PRN wheeze 05/02/23 09/22/23 aerosol inhaler alendronate 70 mg tablet 70 mg PO WK 05/02/23 09/22/23 famotidine 20 mg tablet 20 mg PO BID 05/02/23 09/22/23 latanoprost 0.005 % eye drops 1 drp OPB HS 05/02/23 09/22/23 methotrexate sodium 2.5 mg tablet 17.5 mg PO WK 05/02/23 09/22/23 metoprolol succinate 25 mg 25 mg PO BID 05/02/23 09/22/23 tablet,extended release 24 hr Previous Rx's Medication Instructions Recorded bicalutamide 50 mg tablet 50 mg PO QAM #30 tabs 05/04/23 tramadol 50 mg tablet 50 mg PO Q4H PRN Pain #12 tabs 05/04/23 Results & Data (ED) Vital Signs Vital Signs - 24 hr 11/26/23 14:00 11/26/23 14:19 11/26/23 14:20 Temperature 36.5 C Temperature Source Oral Pulse Rate 77 78 Pulse Rate from SpO2 Sensor Pulse Rhythm Regular Pulse Strength Normal Respiratory Rate 20 Respiratory Effort / Characteristics Non-Labored Spontaneous Respiratory Depth Normal Respiratory Pattern Regular Blood Pressure 120/57 L Blood Pressure Mean 78 Blood Pressure Position Sitting Pulse Oximetry 96 97 Oxygen Delivery Method Room Air Room Air Sepsis Recent Fever Within 48 Hours No Sepsis New/Unexplained Change in Mental Status No Sepsis Action Taken by Nursing No Action Required 11/26/23 14:22 11/26/23 16:16 11/26/23 16:33 Temperature Temperature Source Pulse Rate 76 76 Pulse Rate from SpO2 Sensor 72 Pulse Rhythm Pulse Strength Respiratory Rate 20 16 20 Respiratory Effort / Characteristics Respiratory Depth Respiratory Pattern Blood Pressure 151/89 H Blood Pressure Mean 107 Blood Pressure Position Pulse Oximetry 95 96 96 Oxygen Delivery Method Room Air Room Air Room Air Sepsis Recent Fever Within 48 Hours Sepsis New/Unexplained Change in Mental Status Sepsis Action Taken by Nursing 11/26/23 17:00 11/26/23 17:36 11/26/23 17:49 Temperature Temperature Source Pulse Rate 77 78 78 Pulse Rate from SpO2 Sensor 84 76 Pulse Rhythm Pulse Strength Respiratory Rate 18 16 Respiratory Effort / Characteristics Respiratory Depth Respiratory Pattern Blood Pressure 140/98 167/91 H Blood Pressure Mean 112 116 Blood Pressure Position Pulse Oximetry 93 99 Oxygen Delivery Method Room Air Room Air Sepsis Recent Fever Within 48 Hours Sepsis New/Unexplained Change in Mental Status Sepsis Action Taken by Nursing Laboratory Data 11/26/23 14:20 11/26/23 14:20 Lab Results 11/26/23 11/26/23 Range/Units 14:20 15:00 WBC 9.22 (4.8-10.8) K/ul RBC 4.13 L (4.70-6.10) M/uL Hgb 13.1 L (14.0-18.0) g/dl Hct 38.5 L (42.0-52.0) % MCV 93.2 (80.0-100.0) fL MCH 31.7 (25.0-34.0) pg MCHC 34.0 (32.0-36.0) g/dL RDW Std Deviation 48.5 H (36.4-46.3) fL RDW Coeff of Vamsi 14.4 (11.5-14.5) % Plt Count 189 (130-400) K/uL MPV 8.8 L (9.4-12.4) fL Immature Gran % (Auto) 0.5 % Neut % (Auto) 74.0 % Lymph % (Auto) 17.8 % Walsh % (Auto) 6.1 % Eos % (Auto) 0.9 % Baso % (Auto) 0.7 % Neut # (Auto) 6.83 H (1.40-6.50) K/uL Lymph # (Auto) 1.64 (1.20-3.40) K/uL Walsh # (Auto) 0.56 (0.11-0.59) K/uL Eos # (Auto) 0.08 (0.00-0.50) K/uL Baso # (Auto) 0.06 (0.00-0.20) K/uL Immature Gran # (Auto) 0.05 (0.01-0.20) K/uL PT 10.8 (9.0-12.0) Seconds INR 1.0 (0.9-1.1) APTT 20 L (21-31) Seconds PTT Ratio 0.7 Sodium 138 (136-145) mmol/L Potassium 4.3 (3.5-5.1) mmol/L Chloride 106 (98-107) mmol/L Carbon Dioxide 25 (21-32) mmol/L Anion Gap 7 (3-11) BUN 19 (6-23) mg/dl Creatinine 0.88 (0.6-1.4) mg/dl Est Cr Clr Drug Dosing 83.2 ml/min Est GFR ( Amer) 94.0 ml/min Est GFR (Non-Af Amer) 81.1 ml/min BUN/Creatinine Ratio 21.6 H (10-20) Glucose 169 H (70-99(Fasting)) mg/dl Calcium 8.2 L (8.6-10.3) mg/dl Magnesium 2.0 (1.7-2.4) mg/dl Total Bilirubin 1.5 H (0.2-1.0) mg/dl AST 21 (13-39) U/L ALT 13 (7-52) U/L Alkaline Phosphatase 49 (34-104) U/L Troponin I High Sens 5.0 (0-20) pg/ml Total Protein 6.3 (6.0-8.3) gm/dl Albumin 3.7 (3.4-5.0) gm/dl Globulin 2.6 (2.5-4.0) gm/dl Albumin/Globulin Ratio 1.4 (0.9-2) TSH 0.835 (0.300-4.500) uIu/ml Urine Color Dark Yellow Urine Appearance Turbid A (Clear) Urine pH 8.5 H (4.5-7.5) Ur Specific [place] 1.028 (1.000-1.030) Urine Protein 1+ H (Negative) Urine Glucose (UA) Negative (Negative) Urine Ketones Trace H (Negative) Urine Blood Negative (Negative) Urine Nitrite Negative (Negative) Urine Bilirubin Negative (Negative) Urine Urobilinogen Negative (Negative) Ur Leukocyte Esterase Trace H (Negative) Urine WBC (Auto) 0-5 (0-5) /hpf Urine RBC (Auto) 3-5 H (0-2) /hpf U Hyaline Cast (Auto) 3-5 H (0-2) /lpf U Epithel Cells (Auto) 0-2 (0-2) /hpf Urine Bacteria (Auto) None Seen (None Seen) Anaplasma Smear See Comment Babesia Smear See Comment Lyme Disease Screen Positive H (Negative) Lyme Disease IgG Ab Positive H (Negative) Lyme Disease IgM Ab Negative (Negative) Administered Medications Discontinued Medications Sodium Chloride (Nss) 500 mls @ 999 mls/hr IV .Q31M ISAAC Stop: 11/26/23 15:00 Last Infusion: 11/26/23 16:51 Dose: Infused [place]ed [place] [facility] [place] 11/26/23 15:06 Dose: 999 mls/hr Documented By: CHAVA Ceftriaxone Sodium (Rocephin) 2,000 mg in 50 mls @ 100 mls/hr IV NOW STA Stop: 11/26/23 17:36 Last Infusion: 11/26/23 18:22 Dose: Infused [place]ed [place]: [facility] [place]: 11/26/23 17:45 Dose: 100 mls/hr Documented By: ROSALIND Imaging Data Radiologist's Impression: Head CT 11/26/23 14:[address] DOSE: 547.75 mGy.cm HISTORY: syncope TECHNIQUE: Multiaxial CT images of the head were performed without the use of intravenous contrast. Automated exposure control was utilized for this study. A dose lowering technique was utilized adhering to the principles of ALARA. Comparison: Head CT 09/27/2017. Findings: The paranasal sinuses and mastoid air cells are clear. The calvarium and skull base are intact. There is no mass, hematoma, midline shift, acute infarct. White matter hypodensity is nonspecific but suggestive of microvascular ischemic change. The ventricles and sulci demonstrate mild age-related involutional changes. Impression: No acute intracranial abnormality. Atrophy and microvascular ischemic changes. ACT 112: Negative or not required by law. Electronically signed by: Farhad Ascencio M.D. 11/26/2023 4:38 PM Chest X-Ray 11/26/23 14:23 XR chest 1V portable HISTORY: syncope COMPARISON: Chest CTA 11/15/2023. FINDINGS: No pneumothorax. No pleural effusions. The heart remains mildly enlarged. There is a large hiatus hernia, unchanged. There are poststernotomy changes again noted. A few bibasilar linear densities favor subsegmental atelectasis or scarring. This is similar to the prior study. No new focal lung consolidations to suggest a pneumonia. No evidence for pulmonary edema. Degenerative changes within the shoulders. IMPRESSION: No significant change compared to the prior study. No acute process. ACT 112: Negative or not required by law. Electronically signed by: Farhad Ascencio M.D. 11/26/2023 3:59 PM Shoulder X-Ray 11/26/23 14:23 XR shoulder LT min 2V routine CLINICAL HISTORY: pain, injury COMPARISON STUDY: Chest CT 11/15/2023. FINDINGS: No fracture or dislocation within the left shoulder. The left clavicle is intact. There are poststernotomy changes. There is a large hiatus hernia again noted. Moderate to severe osteoarthritis at the glenohumeral joint. IMPRESSION: 1. No fracture or dislocation within the left shoulder. 2. Moderate to severe osteoarthritis at the glenohumeral joint. ACT 112: Negative or not required by law. Electronically signed by: Farhad Ascencio M.D. 11/26/2023 3:58 PM Discharge Plan Visit Data Chief Complaint: Syncope ED Provider: Mariano Donnelly Discharge Problem: Syncope, Borderline results on serologic testing for Lyme disease, History of coronary artery disease Patient Disposition: Being Evaluated by Hospitalist Forms Stand Alone Forms: My [facility] Prescriptions Prescriptions: No Action celecoxib [Celebrex] 200 mg Capsule 200 mg PO QAM aspirin 81 mg Tablet,Delayed Release (Dr/Ec) 81 mg PO QAM folic acid 1 mg Tablet 1 mg PO DAILY vitamin E 400 unit Capsule 200 unit PO DAILY rosuvastatin 20 mg Tablet 20 mg PO QPM coQ10 (ubiquinol) 200 mg Capsule 200 mg PO QPM latanoprost 0.005 % drops 1 drp OPB HS alendronate 70 mg tablet 70 mg PO WK famotidine 20 mg tablet 20 mg PO BID methotrexate sodium 2.5 mg tablet 17.5 mg PO WK Rx Instructions: 7 pills metoprolol succinate 25 mg tablet extended release 24 hr 25 mg PO BID Rx Instructions: 1/2 tab in AM, 1 tab in PM albuterol sulfate 90 mcg/actuation HFA aerosol inhaler 2 puff INHALATION BID PRN (Reason: wheeze) Orencia (with maltose) 250 mg recon soln IV bicalutamide 50 mg Tablet 50 mg PO QAM Qty: 30 1RF tramadol 50 mg Tablet 50 mg PO Q4H PRN (Reason: Pain) Qty: 12 0RF Referrals Referrals: Isaak Castro DO [Primary Care Provider] - Discharge Problem: Syncope Qualifiers: Syncope type: unspecified Qualified Code(s): R55 - Syncope and collapse
[2023-11-26 14:45] LABS: Basophils # (auto) 0.06 K/uL (0.00-0.20); Basophils % (auto) 0.7 %; Eosinophils # (auto) 0.08 K/uL (0.00-0.50); Eosinophils % (auto) 0.9 %; Hematocrit (blood only) 38.5 % (42.0-52.0); Hemoglobin 13.1 g/dl (14.0-18.0); Immature Granulocytes # (auto) 0.05 K/uL (0.01-0.20); Immature Granulocytes % (auto) 0.5 %; Lymphocytes # (auto) 1.64 K/uL (1.20-3.40); Lymphocytes % (auto) 17.8 %; Mean Corpuscular Hemoglobin 31.7 pg (25.0-34.0); Mean Corpuscular Volume 93.2 fL (80.0-100.0); Mean Platelet Volume 8.8 fL (9.4-12.4); Monocytes # (auto) 0.56 K/uL (0.11-0.59); Monocytes % (auto) 6.1 %; Neutrophils # (auto) 6.83 K/uL (1.40-6.50); Platelet Count 189 K/uL (130-400); RDW Coefficient of Variation 14.4 % (11.5-14.5); RDW Standard Deviation 48.5 fL (36.4-46.3); Red Blood Count 4.13 M/uL (4.70-6.10); White Blood Count 9.22 K/ul (4.8-10.8)
[2023-11-26 15:00] LABS: Albumin Globulin Ratio 1.4 (0.9-2); Albumin Level 3.7 gm/dl (3.4-5.0); BUN Creatinine Ratio 21.6 (10-20); Bilirubin,Total 1.5 mg/dl (0.2-1.0); Calcium 8.2 mg/dl (8.6-10.3); Creatinine Clr Calc Pharmacy 83.2 ml/min; Est GFR (Non-African American) 81.1 ml/min; Globulin 2.6 gm/dl (2.5-4.0); Potassium 4.3 mmol/L (3.5-5.1); Total Protein 6.3 gm/dl (6.0-8.3)
[2023-11-26] MEDS: SODIUM CHLORIDE 0.9% 500 ML IV SCH (15:06)
[2023-11-26 15:15] LABS: Thyroid Stimulating Hormone 0.835 uIu/ml (0.300-4.500)
[2023-11-26 15:20] LABS: Partial Thromboplastin Ratio 0.7; Partial Thromboplastin Time 20 Seconds (21-31); Prothrombin Time 10.8 Seconds (9.0-12.0)
[2023-11-26 15:30] LABS: Appearance Urine Turbid (Clear); Bacteria Urine Automated None Seen (None Seen); Bilirubin Urine Negative (Negative); Blood Urine Negative (Negative); Color Urine Dark Yellow; Epithelial Cell Urine Auto 0-2 /hpf (0-2); Glucose Urine UA Negative (Negative); Ketones Urine Trace (Negative); Leukocyte Esterase Urine Trace (Negative); Nitrite Urine Negative (Negative); Protein Urine 1+ (Negative); Specific Gravity Urine 1.028 (1.000-1.030); Urobilinogen Urine Negative (Negative); WBC Urine Automated 0-5 /hpf (0-5); pH Urine 8.5 (4.5-7.5)
[2023-11-26 15:37] LABS: Lyme Screen Rflx Confirmation Positive (Negative)
--- NOTE | 2023-11-26 15:59 | XRay Report ---
XR shoulder LT min 2V routine CLINICAL HISTORY: pain, injury COMPARISON STUDY: Chest CT 11/15/2023. FINDINGS: No fracture or dislocation within the left shoulder. The left clavicle is intact. There are poststernotomy changes. There is a large hiatus hernia again noted. Moderate to severe osteoarthriti s at the glenohumeral joint. IMPRESSION: 1. No fracture or dislocation within the left shoulder. 2. Moderate to severe osteoarthritis at the glenohumeral joint. ACT 112: Negative or not required by law. Electronically signed by: Farhad Ascencio M.D. 11/26/2023 3:58 PM
--- NOTE | 2023-11-26 16:00 | XRay Report ---
XR chest 1V portable HISTORY: syncope COMPARISON: Chest CTA 11/15/2023. FINDINGS: No pneumothorax. No pleural effusions. The heart remains mildly enlarged. There is a large hiatus hernia, unchanged. There are poststernotomy changes again noted. A few bibasilar linear densit ies favor subsegmental atelectasis or scarring. This is similar to the prior study. No new focal lung consolidations to suggest a pneumonia. No evidence for pulmonary edema. Degenerative changes within the shoulders. IMPRESSION: No significant change compared to the prior study. No acute process. ACT 112: Negative or not required by law. Electronically signed by: Farhad Ascencio M.D. 11/26/2023 3:59 PM
[2023-11-26 16:11] LABS: Lyme Ab IgG 2nd Tier Confirm Positive (Negative); Lyme Ab IgM 2nd Tier Confirm Negative (Negative)
--- NOTE | 2023-11-26 16:40 | CT Scan Report ---
HEAD CT NONCONTRAST CT DOSE: 547.75 mGy.cm HISTORY: syncope TECHNIQUE: Multiaxial CT images of the head were performed without the use of intravenous contrast. A utomated exposure control was utilized for this study. A dose lowering technique was utilized adheri ng to the principles of ALARA. Comparison: Head CT 09/27/2017. Findings: The paranasal sinuses and mastoid air cells are clear. The calvarium and skull base are int act. There is no mass, hematoma, midline shift, acute infarct. White matter hypodensity is nonspecifi c but suggestive of microvascular ischemic change. The ventricles and sulci demonstrate mild age-rela adrián involutional changes. Impression: No acute intracranial abnormality. Atrophy and microvascular ischemic changes. ACT 112: Negative or not required by law. Electronically signed by: Farhad Ascencio M.D. 11/26/2023 4:38 PM
[2023-11-26] MEDS: cefTRIAXone SODIUM 2,000 MG/50 ML BAG IV STA (17:45)
--- NOTE | 2023-11-26 19:43 | History & Physical Report ---
Date of Service November 26, 2023 Assessment & Plan (1) Syncope: Plan: Patient is a very pleasant 78-year-old gentleman with history of paroxysmal V. tach, atrial flutter status post maze procedure, tachybradycardia syndrome, CAD, CABG, CHF diastolic type, COPD, pulm hypertension, prostate cancer, rheumatoid arthritis, presenting with a syncopal episode this afternoon. Syncopal Episode Rule out arrhythmia history of paroxysmal V. tach/atrial fibrillation status post Maze procedure/tachybradycardia syndrome/PVCs noted by EMS to have frequent PVCs/PACs Echocardiogram Monitor telemetry unit Continue usual metoprolol 12.5 mg p.o. twice daily, follows with Dr. [facility] consulted rule out neurologic causes Rule out acute CVA CT head negative Brain MRI ordered rule out seizure EEG ordered neurologist consulted possible vasovagal response syncope preceded by left shoulder pain Left shoulder pain in setting of upper arm injury, forceful pulling a tree branch while in the riding lawnmower shoulder x-ray: Negative for fracture Shoulder MRI to rule out rotator cuff tear Rule out Lyme disease Positive IgG, negative IgM Western blot ceftriaxone IV CAD/CABG Continue Lipitor and aspirin CHF diastolic type Euvolemic COPD Not in exacerbation Prostate cancer Continue Zytiga- will bring the medication continue prednisone 10 mg daily which is taken with his Zytiga DVT prophylaxis SCDs for now CODE STATUS Full code Disposition Lives with family at home History of Present Illness Chief Complaint: syncopal episode this afternoon Primary Care Provider: Isaak Castro DO Patient is a very pleasant 78-year-old gentleman with history of paroxysmal V. tach, atrial flutter status post maze procedure, tachybradycardia syndrome, CAD, CABG, CHF diastolic type, COPD, pulm hypertension, prostate cancer, rheumatoid arthritis, presenting with a syncopal episode this afternoon. 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 He then experienced severe pain in the left shoulder which persisted to the evening. Patient was at the eye clinic today, sitting, when he started to have severe left shoulder pain, followed by sensation of being warm all over, and dizzy. He was witnessed to have a syncopal episode, with some facial twitching, but no generalized jerking movements as per report of people around him. Unclear as to how long patient was unconscious. Patient denies confusion when he regained consciousness. He denies having any palpitations, chest pain, shortness of breath Chart and this episode. EMS was called, en route to the hospital, frequent PVCs and PACs noted on his EKG. At the ER, patient was received with relatively stable vital signs. EKG showed normal sinus rhythm, normal rate. CT head negative for acute process. Lyme screen positive for IgG. On exam, patient seen resting in bed, comfortable, awake and alert, in good spirits. he denies having any active chest pain, shortness of breath, palpitations, dizziness. he does report left shoulder pain. Allergies Allergy/AdvReac Type Severity Reaction Status Date / Time adalimumab [From Humira] Allergy Intermediate WAS NOT Verified 11/26/23 19:07 EFFECTED FOR TREATMENT Home Medications Medication Instructions Recorded Confirmed Type aspirin 81 mg tablet,delayed 81 mg PO QAM 01/25/19 11/26/23 History release celecoxib 200 mg capsule (Celebrex) 200 mg PO QAM 01/25/19 11/26/23 History coQ10 (ubiquinol) 200 mg capsule 200 mg PO QPM 01/25/19 11/26/23 History folic acid 1 mg tablet 1 mg PO DAILY 01/25/19 11/26/23 History rosuvastatin 20 mg tablet 20 mg PO QPM 01/25/19 11/26/23 History vitamin E 268 mg (400 unit) capsule 200 unit PO DAILY 01/25/19 11/26/23 History albuterol sulfate 90 mcg/actuation 2 puff inhalation BID PRN wheeze 05/02/23 11/26/23 History aerosol inhaler alendronate 70 mg tablet 70 mg PO WK 05/02/23 11/26/23 History famotidine 20 mg tablet 20 mg PO BID 05/02/23 11/26/23 History latanoprost 0.005 % eye drops 1 drp OPB HS 05/02/23 11/26/23 History methotrexate sodium 2.5 mg tablet 17.5 mg PO WK 05/02/23 11/26/23 History metoprolol succinate 25 mg 25 mg PO BID 05/02/23 11/26/23 History tablet,extended release 24 hr tramadol 50 mg tablet 50 mg PO Q4H PRN Pain #12 tabs 05/04/23 11/26/23 Rx abiraterone 250 mg tablet 500 mg PO QAM 11/26/23 11/26/23 History prednisone 10 mg tablet 10 mg PO DAILY 11/26/23 11/26/23 History Past Med/Surg History Problem List (Updated 11/26/23 @ 18:43 by Mariano Donnelly M.D.) History of coronary artery disease (Acute) Borderline results on serologic testing for Lyme disease (Acute) Syncope (Acute) Left nephrolithiasis Prostate CA ARF (acute renal failure) Pelvic lymphadenopathy (Acute) Lymphadenopathy, retroperitoneal (Acute) Acute unilateral obstructive uropathy (Acute) PVCs (premature ventricular contractions) (Acute) Atrial fibrillation (Chronic) Rheumatoid arthritis (Chronic) Coronary artery disease (Chronic) Spinal stenosis, lumbar region with neurogenic claudication (Acute) Generalized osteoarthritis (Chronic 07/15/11) Palpitations Rectal hemorrhage (07/15/11) Sensorineural hearing loss, bilateral (Chronic 07/15/11) Tachycardia Medical History CAD (coronary artery disease) s/p CABG 09/2017 History of ischemic cardiomyopathy 2/2 sustained v. tach. Interval improvement in EF. Spinal stenosis Gout Osteoarthritis BPH (benign prostatic hyperplasia) Rheumatoid arthritis GERD (gastroesophageal reflux disease) Atrial fibrillation s/p Maze procedure/pulm vein isolation/BOLIVAR clip 09/2017. No known recurrence of Afib since. Myocardial Infarction 1986 Hypertension Hyperlipidemia Chronic obstructive pulmonary disease Surgical History History of carpal tunnel release Fusion of spine History of tooth extraction History of tonsillectomy History of coronary artery bypass graft 09/2017 X 3 VESSELS (GARCIA-LAD, SVG-PDA, SVG-OM2) AT [facility] History of cardiac cath 1986 NO STENTS 2017 NO STENTS Family History Brother Family history of diabetes mellitus Grandmother (Maternal) Family history of diabetes mellitus Social History Smoking Status: Former smoker Tobacco Type: Cigarettes Second Hand Exposure: No; Do You Dip or Chew Tobacco: No; Hx Alcohol Use: No Hx Substance Use: No Preferred Language: Citizen Of [place] Communication Ability: Effective Visual Impairment: No Limitations Travel Director Required: No Beliefs That Will Affect Care: None marital status: Current Living Situation: Spouse Feels Safe at Home: Yes Assistive Devices: Walker Review of Systems Review of Systems: all noted and negative except for above Physical Exam Physical Exam: General- oriented x 3, not in distress, speaks in sentences with no effort or accessory muscle use Head- atraumatic Eyes- PERRL, EOMI, anicteric ENT- oropharynx clear Neck- supple, no JVD, no adenopathy, no thyromegaly; carotids +2/2, no bruits appreciated Lungs- clear to auscultation bilaterally, no rales/wheezes Heart- normal rate, regular rhythm; no murmur, no gallop, no rub appreciated Abdomen- normal bowel sounds, nondistended, soft, nontender, no masses or hepatosplenomegaly Extremities- no pretibial edema, no calf tenderness; peripheral pulses intact Left shoulder-mild edema, no warmth/tenderness, no hematoma left lower extremity-full range of motion due to pain in the left shoulder Neuro- alert, oriented x 3; CN 2-12 grossly intact; motor 5/5 bilaterally;sensation 100% on all extremities; no other gross focal neurologic deficits Skin- warm & dry Results & Data Results & Data Vital Signs (Past 12 Hours) Vital Signs Temp Pulse Resp BP Pulse Ox O2 Del Method 11/26/23 17:49 78 11/26/23 17:36 78 16 167/91 H 99 Room Air 11/26/23 17:00 77 18 140/98 93 Room Air 11/26/23 16:33 76 20 96 Room Air 11/26/23 16:16 76 16 151/89 H 96 Room Air 11/26/23 14:22 20 95 Room Air 11/26/23 14:20 36.5 C 78 20 120/57 L 97 Room Air 11/26/23 14:19 77 11/26/23 14:00 96 Room Air Code Status & VTE Plan VTE Prophylaxis Plan VTE Prophylaxis will be ordered: Yes (1) Syncope Syncope type: unspecified Qualified Code(s): R55 - Syncope and collapse
[2023-11-26] MEDS ORDERED: ALBUTEROL HFA 8 GM INHALER INH PRN (19:57)
[2023-11-26] MEDS ORDERED: traMADol HCL 50 MG TABLET PO PRN (19:57)
[2023-11-26] MEDS ORDERED: NON-FORMULARY MEDICATION (Coq10 (Ubiquinol) 200 mg Capsule) PO SCH (21:00)
[2023-11-26] MEDS ORDERED: ACETAMINOPHEN 325 MG TAB PO PRN (22:18)
--- NOTE | 2023-11-26 22:29 | Magnetic Resonance Report ---
MR brain wo con CLINICAL HISTORY: syncope, r/o acute cva TECHNIQUE: Multiplanar and multisequence MR images of the brain were obtained without intravenous con trast. Comparison: Comparison is made to CT head 11/26/2023 FINDINGS: No abnormal restricted diffusion is identified. Foci of T2 and FLAIR hyperintensity are noted in the paraventricular areas consistent with chronic small vessel ischemic disease. Ex vacuo ventriculomegal y and sulcal enlargement is noted compatible with diffuse volume loss. No mass is seen. There is no m ass effect or midline shift. There is no evidence of acute intraparenchymal hemorrhage. No extra axia l fluid collections are seen. The corpus callosum, pituitary gland, and cerebellar tonsils appear miller ssly unremarkable. Flow voids of the major intracranial arterial vessels are identified. Mild bilateral maxillary sinus disease is seen. IMPRESSION: No acute abnormality and in particular no evidence of acute infarct. ACT 112: Negative or not required by law. Electronically signed by: Alex Conner M.D. 11/26/2023 10:27 PM
[2023-11-26] MEDS: METOPROLOL SUCC 25MG EXT REL TAB PO SCH (22:46)
[2023-11-26] MEDS: FAMOTIDINE 20 MG TAB PO SCH (22:46)
[2023-11-26] MEDS: [UNRECOGNIZED DRUG - REMARK] SCH (22:47)
[2023-11-26] MEDS: ROSUVASTATIN CALCIUM 20 MG TAB PO SCH (22:47)
[2023-11-26] MEDS: LATANOPROST 0.005% OP SOLN 2.5 ML BTL OPB SCH (22:56)
[2023-11-27] MEDS: SODIUM CHLORIDE 0.9% 1,000 ML IV ONE (01:07)
[2023-11-27] MEDS: METOPROLOL TARTRATE 1 MG/ML VIAL IV STA (01:20)
[2023-11-27] MEDS: METOPROLOL SUCC 25MG EXT REL TAB PO STA (02:29)
[2023-11-27 06:32] LABS: Basophils # (auto) 0.05 K/uL (0.00-0.20); Basophils % (auto) 0.6 %; Eosinophils # (auto) 0.22 K/uL (0.00-0.50); Eosinophils % (auto) 2.5 %; Hematocrit (blood only) 37.6 % (42.0-52.0); Hemoglobin 12.8 g/dl (14.0-18.0); Immature Granulocytes # (auto) 0.04 K/uL (0.01-0.20); Immature Granulocytes % (auto) 0.4 %; Lymphocytes # (auto) 1.36 K/uL (1.20-3.40); Lymphocytes % (auto) 15.3 %; Mean Corpuscular Hemoglobin 31.5 pg (25.0-34.0); Mean Corpuscular Volume 92.6 fL (80.0-100.0); Mean Platelet Volume 9.2 fL (9.4-12.4); Monocytes % (auto) 12.3 %; Neutrophils # (auto) 6.14 K/uL (1.40-6.50); Neutrophils % (auto) 68.9 %; Platelet Count 173 K/uL (130-400); RDW Coefficient of Variation 14.4 % (11.5-14.5); RDW Standard Deviation 49.1 fL (36.4-46.3); Red Blood Count 4.06 M/uL (4.70-6.10); White Blood Count 8.91 K/ul (4.8-10.8)
--- NOTE | 2023-11-27 07:16 | Cardiology Consultation ---
Date of Consultation November 27, 2023 Assessment & Plan (1) Syncope: (2) Paroxysmal atrial fibrillation: (3) Tachy-orlando syndrome: (4) Coronary artery disease: Plan IMPRESSION: 78-year-old male with history of coronary disease and borderline tachybradycardia syndrome presented to [facility] emergency department after an episode of syncope in the setting of significant shoulder pain PLAN: Syncope: Syncope likely vasovagal in nature. Cardiac workup unremarkable thus far. Known PAF with TBS, continues to decline anticoagulation. -Recommend outpatient zio monitor to re-evaluate for worsening conduction system disease/TBS. -Okay to continue metoprolol succinate 25 mg BID at this time. -Lyme IgG +, western blot pending, abx per primary service. -Will defer to hospitalist team regarding pain management/shoulder injury workup. Case discussed with Dr. Del Valle. Further recommendations pending assessment. I spent a total of 60 minutes on the date of service in preparation, delivery, and documentation of the care provided to the patient excluding any time spent in the performance of separately billed services. JEANINE Clemons Department of Cardiology, [facility] This chart was completed in part utilizing Speech Voice Recognition Software. Grammatical errors, random word insertions, pronoun errors, and incomplete sentences are an occasional consequence of this system due to software limitations, ambient noise, and hardware issues. Any formal questions or concerns about the content, text, or information contained within the body of this dictation should be directly addressed to the provider for clarification. Supervising Physician Co-Signing Physician Notes I have personally performed a history and physical examination on the patient. I have reviewed the advance practitioner's documentation, and I agree with, and take responsibility for the plan of care. 78-year-old male with history of borderline tachybradycardia syndrome, paroxysmal atrial fibrillation status post left atrial appendage clip, and coronary artery disease presents due to a syncopal episode. Presentation consistent with vasovagal syncope. Recommend outpatient ZIO monitor. Agree with titration of metoprolol to 25 mg twice daily to improve control of atrial tachycardia. No significant bradycardia observed on telemetry. Continue teleme try monitoring while hospitalized. Review echo results when available. I spent a total of 30 minutes on the date of service in preparation, delivery, and documentation of the care provided to this patient, excluding any time spent in the performance of separately billed services. History of Present Illness Reason for Consultation: Syncope Requesting Physician: Tommy recinos Attending Physician: Dony Crockett MD History of Present Illness 78-year-old male with history of paroxysmal atrial fibrillation and borderline tachybradycardia syndrome, CAD with history of CABG, and COPD with pulmonary hypertension presented to [facility] emergency department yesterday due to an episode of syncope. Patient noted to be doing lawn work on 11/25/2023. 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 He then experienced severe pain in the left shoulder which persisted to the evening. Patient was at the eye clinic 11/26/2023. While sitting he started to have severe left shoulder pain because of the position of the chair, pain followed by sensation of being warm all over/flushed, became lightheaded/dizzy. He was witnessed to have a syncopal episode. Unconscious for a few moments per the patient. Patient denies confusion when he regained consciousness. Patient was brought to the emergency department. EKG: Normal sinus rhythm, [address] of the head was negative for acute changes. MRI of the brain without evidence of acute infarct IgG was positive on Lyme screen--Western blot pending. Patient started on ceftriaxone IV Echo pending In regards to his shoulder shoulder x-ray revealed no evidence of fracture but did show moderate to severe osteoarthritis. Shoulder MRI pending. Of note, Patient follows with [facility], most recently evaluated on 11/01/2023 in the outpatient setting for borderline TBS. At this time he was feeling well and no pacemaker was recommended. 11/27/2023: Telemetry: TBS with rates SR-ST/Aflutter 60-150s; currently SR in the 80s at time of eval. Upon entrance into the room patient resting in bed. No acute concerns. Denies any further episodes of lightheadedness, hot flashes, or syncope. Notes that he had a similar episode years back when he was dealing with significant sciatica pain. He remains chest pain free. No shortness of breath. No orthopnea, PND, or increased lower extremity edema. No fever, chills, cough, hematochezia, melena, or hemoptysis. Outpatient cardiac medications include: Metoprolol succinate 12.5 mg in the morning and 25 mg in the evening Rosuvastatin 20 mg daily Aspirin 81 mg daily Past medical history: 1.CAD, status post CABG x3 with GARCIA to the LAD, vein graft to the posterior descending artery, vein graft to OM 2017 a.Partial Maze procedure with bilateral pulmonary vein isolation and left atrial appendage clip with [employer] 09/2017 b.Transient ischemic cardiomyopathy, resolved c.History of ischemic sustained ventricular tachycardia d.Nonischemic nuclear stress test, 2018 and 04/2021 2.Paroxysmal atrial fibrillation/flutter, [id number] score of 4 (age 1, CHF, CAD)- not currently on anticoagulation 3.Borderline TBS, no ppm currently- following with EP 4.moderate PVCs- asymptomatic 5.Rheumatoid arthritis 6. Prostate carcinoma, undergoing chemo Allergies Allergy/AdvReac Type Severity Reaction Status Date / Time adalimumab [From Humira] Allergy Intermediate WAS NOT Verified 11/26/23 19:07 EFFECTED FOR TREATMENT Home Medications Medication Instructions Recorded Confirmed Type aspirin 81 mg tablet,delayed 81 mg PO QAM 01/25/19 11/26/23 History release celecoxib 200 mg capsule (Celebrex) 200 mg PO QAM 01/25/19 11/26/23 History coQ10 (ubiquinol) 200 mg capsule 200 mg PO QPM 01/25/19 11/26/23 History folic acid 1 mg tablet 1 mg PO DAILY 01/25/19 11/26/23 History rosuvastatin 20 mg tablet 20 mg PO QPM 01/25/19 11/26/23 History vitamin E 268 mg (400 unit) capsule 200 unit PO DAILY 01/25/19 11/26/23 History albuterol sulfate 90 mcg/actuation 2 puff inhalation BID PRN wheeze 05/02/23 11/26/23 History aerosol inhaler alendronate 70 mg tablet 70 mg PO WK 05/02/23 11/26/23 History famotidine 20 mg tablet 20 mg PO BID 05/02/23 11/26/23 History latanoprost 0.005 % eye drops 1 drp OPB HS 05/02/23 11/26/23 History methotrexate sodium 2.5 mg tablet 17.5 mg PO WK 05/02/23 11/26/23 History metoprolol succinate 25 mg 25 mg PO BID 05/02/23 11/26/23 History tablet,extended release 24 hr tramadol 50 mg tablet 50 mg PO Q4H PRN Pain #12 tabs 05/04/23 11/26/23 Rx abiraterone 250 mg tablet 1,000 mg PO QAM 11/26/23 11/27/23 History prednisone 10 mg tablet 10 mg PO DAILY 11/26/23 11/26/23 History Patient History Medical History CAD (coronary artery disease) s/p CABG 09/2017 History of ischemic cardiomyopathy 2/ sustained v. tach. Interval improvement in EF. Spinal stenosis Gout Osteoarthritis BPH (benign prostatic hyperplasia) Rheumatoid arthritis GERD (gastroesophageal reflux disease) Atrial fibrillation s/p Maze procedure/pulm vein isolation/BOLIVAR clip 09/2017. No known recurrence of Afib since. Myocardial Infarction 1986 Hypertension Hyperlipidemia Chronic obstructive pulmonary disease Surgical History History of carpal tunnel release Fusion of spine History of tooth extraction History of tonsillectomy History of coronary artery bypass graft 09/2017 X 3 VESSELS (GARCIA-LAD, SVG-PDA, SVG-OM2) [facility] History of cardiac cath 1986 NO STENTS 2017 NO STENTS Family History Brother Family history of diabetes mellitus Grandmother (Maternal) Family history of diabetes mellitus Social History Smoking Status: Former smoker Tobacco Type: Cigarettes Second Hand Exposure: No; Do You Dip or Chew Tobacco: No; Hx Alcohol Use: No Hx Substance Use: No Preferred Language: German Communication Ability: Effective Visual Impairment: No Limitations Records Management Engineer Required: No Beliefs That Will Affect Care: None marital status: Current Living Situation: Spouse Feels Safe at Home: Yes Safety Concerns: Feels Safe At This Time Assistive Devices: Denture - Upper, Denture - Lower, Glasses and Hearing Aid - Bilateral Assistive Devices Comment: has dentures but does not wear Review of Systems Review of Systems: All systems reviewed & are unremarkable except as noted in HPI & below Physical Exam Constitutional: WD/WN, vitals as above no acute distress Eyes: PERRL, conjunctivae normal, anicteric sclerae ENMT: external ear and nose normal, oropharynx normal Neck: trachea midline, no thyromegaly Respiratory: normal respiratory effort, lungs clear to auscultation Cardiovascular: Rate/Rhythm: regular rate and regular rhythm Heart Sounds: normal S1 and normal S2 Vessels: no JVD Extremities: no edema Gastrointestinal (Abdomen): normal bowel sounds, soft, nontender, no hepatosplenomegaly Musculoskeletal: no cyanosis or clubbing, extremities motor strength 5/5 Skin: no rashes, warm and dry Neurologic: PERRL, EOMI, accommodation nl, no face palsy, no dysarthria Psychiatric: A+Ox3, euthymic affect Results & Data Vital Signs (Past 12 Hours) Vital Signs Temp Pulse Pulse Resp BP BP Pulse Ox 11/27/23 03:50 36.9 C 81 18 129/80 95 11/27/23 01:39 122 H 103/73 11/27/23 01:38 122 H 103/73 94 11/26/23 23:00 88 11/26/23 22:22 36.6 C 90 20 161/91 H 95 11/26/23 20:36 79 18 146/86 H 97 11/26/23 20:00 77 18 156/90 H 96 O2 Del Method 11/27/23 03:50 Room Air 11/27/23 01:39 11/27/23 01:38 Room Air 11/26/23 23:00 11/26/23 22:22 Room Air 11/26/23 20:36 Room Air 11/26/23 20:00 Laboratory Results Cardiac Enzymes 11/26/23 11/26/23 11/27/23 Range/Units 14:20 22:29 05:21 AST 21 19 (13-39) U/L Troponin I High Sens 5.0 6.9 (0-20) pg/ml Coagulation 11/26/23 Range/Units 14:20 PT 10.8 (9.0-12.0) Seconds APTT 20 L (21-31) Seconds CBC 11/26/23 11/27/23 Range/Units 14:20 05:21 WBC 9.22 8.91 (4.8-10.8) K/ul RBC 4.13 L 4.06 L (4.70-6.10) M/uL Hgb 13.1 L 12.8 L (14.0-18.0) g/dl Hct 38.5 L 37.6 L (42.0-52.0) % Plt Count 189 173 (130-400) K/uL Neut # (Auto) 6.83 H 6.14 (1.40-6.50) K/uL Lymph # (Auto) 1.64 1.36 (1.20-3.40) K/uL Bremer # (Auto) 0.56 1.10 H (0.11-0.59) K/uL Eos # (Auto) 0.08 0.22 (0.00-0.50) K/uL Baso # (Auto) 0.06 0.05 (0.00-0.20) K/uL Comprehensive Metabolic Panel 11/26/23 11/27/23 Range/Units 14:20 05:21 Sodium 138 142 (136-145) mmol/L Potassium 4.3 3.8 (3.5-5.1) mmol/L Chloride 106 107 (98-107) mmol/L Carbon Dioxide 25 30 (21-32) mmol/L BUN 19 16 (6-23) mg/dl Creatinine 0.88 0.78 (0.6-1.4) mg/dl Glucose 169 H 89 (70-99(Fasting)) mg/dl Calcium 8.2 L 8.5 L (8.6-10.3) mg/dl AST 21 19 (13-39) U/L ALT 13 13 (7-52) U/L Alkaline Phosphatase 49 45 (34-104) U/L Total Protein 6.3 6.1 (6.0-8.3) gm/dl Albumin 3.7 3.6 (3.4-5.0) gm/dl Intake and Output 11/26/23 11/27/23 11/27/23 22:59 06:59 14:59 Intake Total 550 / 550 Balance 550 / 550 Intake: IV 550 / 550 Sodium Chloride 0.9% 500 ml @ 500 / 500 999 mls/hr IV .Q31M ISAAC Rx#: [id number] cefTRIAXone SODIUM 2,000 mg In 50 / 50 50 ml @ 100 mls/hr IV NOW STA Rx#:[id number] Other: # Unmeasured Voids 1 Weight 83.518 kg 83.518 kg Weight Measurement Method Standing Scale Standing Scale Diagnostic Findings Outpatient echocardiogram 04/22/2023 The examination is adequate to evaluate the referral indication. The left ventricular cavity size is normal. The wall thickness is mildly increased in segments with normal wall motion. The posterior wall is hypokinetic at the base The inferoseptum is mildly hypokinetic at the basal level. The regional left ventricular wall motion is otherwise normal. The qualitative LV ejection fraction is 55-59% (normal). Mild aortic valve sclerosis is present. Mild aortic valve regurgitation is present. Mild mitral regurgitation is present. The aortic root is mildly enlarged. (4.0 cm) Mild pulmonary hypertension is present. (1) Syncope Syncope type: unspecified Qualified Code(s): R55 - Syncope and collapse (4) Coronary artery disease Associated angina: without angina Coronary Disease-Associated Artery/Lesion type: rosebud artery [place] vs. transplanted heart: rosebud heart Qualified Code(s): I25.10 - Atherosclerotic heart disease of rosebud coronary artery without angina pectoris
[2023-11-27 07:41] LABS: Albumin Globulin Ratio 1.4 (0.9-2); Albumin Level 3.6 gm/dl (3.4-5.0); BUN Creatinine Ratio 20.5 (10-20); Bilirubin,Total 1.2 mg/dl (0.2-1.0); Calcium 8.5 mg/dl (8.6-10.3); Creatinine Clr Calc Pharmacy 79.5 ml/min; Est GFR (African American) 98.8 ml/min; Est GFR (Non-African American) 85.3 ml/min; Globulin 2.5 gm/dl (2.5-4.0); Magnesium 2.1 mg/dl (1.7-2.4); Potassium 3.8 mmol/L (3.5-5.1); Total Protein 6.1 gm/dl (6.0-8.3)
[2023-11-27] MEDS: FOLIC ACID 1 MG TAB PO SCH (08:25)
[2023-11-27] MEDS: predniSONE 10 MG TABLET PO SCH (08:25)
[2023-11-27] MEDS: CeleBREX 200 MG CAP PO SCH (08:25)
[2023-11-27] MEDS: ASPIRIN 81 MG ECTAB PO SCH (08:25)
--- NOTE | 2023-11-27 09:32 | Magnetic Resonance Report ---
MR shoulder LT wo con CLINICAL HISTORY: severe pain, r/o rotator cuff tear TECHNIQUE: Multiplanar multisequence MR images of the right shoulder were obtained. Comparison: Comparison is made to shoulder radiograph 11/26/2023 FINDINGS: There is no evidence of os acromiale. Mild osteoarthropathy seen in the acromioclavicular joint. Full-thickness tear of the supraspinatus, infraspinatus, and subscapularis. Biceps tendon is displace d medially and likely torn as well. Atrophy of the supraspinatus, infraspinatus, and subscapularis te ndons. Prominent degenerative changes are seen in the labrum. A large joint effusion is seen. Severe chondr omalacia is seen with subluxation of the glenohumeral joint. IMPRESSION: Full-thickness tears of the supraspinatus, infraspinatus, and subscapularis. Dislocation and likely t ear of the biceps tendon. Severe osteoarthritis and labral degenerative changes with subluxation of t he glenohumeral joint. ACT 112: Negative or not required by law. Electronically signed by: Alex Conner M.D. 11/27/2023 9:29 AM
--- NOTE | 2023-11-27 10:58 | Neurology Consultation ---
Date of Consultation November 27, 2023 Assessment & Plan (1) Syncope: Patient presents with vasovagal syncope secondary to severe shoulder pain/injury. No further neurologic workup recommended. Please contact us with any further questions. Telehealth Consultation Telehealth Information Telehealth Information: I performed this visit using a real-time telehealth connection between my location and the patients location ([facility]). After connecting through interactive tele-video, patient was identified by name and date of and/or wristband check.Patient (or authorized healthcare repre sentative) was informed that this was a telemedicine visit and it was being conducted confidentially over secure lines. My office door was closed and no one else was present in the room with me.Patient (or authorized healthcare franchise sales representative) provided consent to proceed with the visit, expressed an understanding of privacy and security of the telemedicine visit, and gave permission to have a hospital franchise sales representative in the room in order to assist with the visit and to conduct portions of the visit, as needed. I informed the patient (or authorized healthcare franchise sales representative) that I reviewed their record and presented the opportunity for them to ask any questions regarding the visit today. The patient agreed to participate. History of Present Illness Reason for Consultation: Syncope Requesting Physician: Dr. Figueroa Attending Physician: Fabiana Figueroa MD History of Present Illness Antonio Tellez is an 78 yo M presenting with syncope in the setting of severe sh oulder pain. The patient reports hurting his shoulder by grabbing a branch while riding his lawnmower. He had an appointment with optometry and at the appointment the pain became so severe he passed out. He has done this before in the setting of sciatic pain as well. No hx of seizures. Allergies Allergy/AdvReac Type Severity Reaction Status Date / Time adalimumab [From Humira] Allergy Intermediate WAS NOT Verified 11/26/23 19:07 EFFECTED FOR TREATMENT Home Medications Medication Instructions Recorded Confirmed Type aspirin 81 mg tablet,delayed 81 mg PO QAM 01/25/19 11/26/23 History release celecoxib 200 mg capsule (Celebrex) 200 mg PO QAM 01/25/19 11/26/23 History coQ10 (ubiquinol) 200 mg capsule 200 mg PO QPM 01/25/19 11/26/23 History folic acid 1 mg tablet 1 mg PO DAILY 01/25/19 11/26/23 History rosuvastatin 20 mg tablet 20 mg PO QPM 01/25/19 11/26/23 History vitamin E 268 mg (400 unit) capsule 200 unit PO DAILY 01/25/19 11/26/23 History albuterol sulfate 90 mcg/actuation 2 puff inhalation BID PRN wheeze 05/02/23 11/26/23 History aerosol inhaler alendronate 70 mg tablet 70 mg PO WK 05/02/23 11/26/23 History famotidine 20 mg tablet 20 mg PO BID 05/02/23 11/26/23 History latanoprost 0.005 % eye drops 1 drp OPB HS 05/02/23 11/26/23 History methotrexate sodium 2.5 mg tablet 17.5 mg PO WK 05/02/23 11/26/23 History metoprolol succinate 25 mg 25 mg PO BID 05/02/23 11/26/23 History tablet,extended release 24 hr tramadol 50 mg tablet 50 mg PO Q4H PRN Pain #12 tabs 05/04/23 11/26/23 Rx abiraterone 250 mg tablet 500 mg PO QAM 11/26/23 11/26/23 History prednisone 10 mg tablet 10 mg PO DAILY 11/26/23 11/26/23 History Patient History Medical History CAD (coronary artery disease) s/p CABG 09/2017 History of ischemic cardiomyopathy 2/2 sustained v. tach. Interval improvement in EF. Spinal stenosis Gout Osteoarthritis BPH (benign prostatic hyperplasia) Rheumatoid arthritis GERD (gastroesophageal reflux disease) Atrial fibrillation s/p Maze procedure/pulm vein isolation/BOLIVAR clip 09/2017. No known recurrence of Afib since. Myocardial Infarction 1986 Hypertension Hyperlipidemia Chronic obstructive pulmonary disease Surgical History History of carpal tunnel release Fusion of spine History of tooth extraction History of tonsillectomy History of coronary artery bypass graft 09/2017 X 3 VESSELS (GRACIA-LAD, SVG-PDA, SVG-OM2) AT [facility] History of cardiac cath 1986 NO STENTS 2017 NO STENTS Family History Brother Family history of diabetes mellitus Grandmother (Maternal) Family history of diabetes mellitus Social History Smoking Status: Former smoker Tobacco Type: Cigarettes Second Hand Exposure: No; Do You Dip or Chew Tobacco: No; Hx Alcohol Use: No Hx Substance Use: No Preferred Language: Yoruba Communication Ability: Effective Visual Impairment: No Limitations Speaker Wirer Required: No Beliefs That Will Affect Care: None marital status: Current Living Situation: Spouse Feels Safe at Home: Yes Safety Concerns: Feels Safe At This Time Assistive Devices: Denture - Upper, Denture - Lower, Glasses and Hearing Aid - Bilateral Assistive Devices Comment: has dentures but does not wear Review of Systems +L shoulder pain Physical Exam Awake and alert, speech fluent, language normal. Unable to move L shoulder in any direction, full strength distally in the L arm. Results & Data Vital Signs (Past 12 Hours) Vital Signs Temp Pulse Pulse Resp BP BP BP 11/27/23 10:48 36.9 C 76 19 125/82 11/27/23 08:00 78 11/27/23 07:02 36.7 C 67 18 127/83 11/27/23 03:50 36.9 C 81 18 129/80 11/27/23 01:39 122 H 103/73 11/27/23 01:38 122 H 103/73 11/26/23 23:00 88 Pulse Ox O2 Del Method 11/27/23 10:48 94 Room Air 11/27/23 08:00 11/27/23 07:02 96 Room Air 11/27/23 03:50 95 Room Air 11/27/23 01:39 11/27/23 01:38 94 Room Air 11/26/23 23:00 Laboratory Results Abnormal lab results 11/26/23 11/26/23 11/27/23 Range/Units 14:20 15:00 05:21 RBC 4.13 L 4.06 L (4.70-6.10) M/uL Hgb 13.1 L 12.8 L (14.0-18.0) g/dl Hct 38.5 L 37.6 L (42.0-52.0) % RDW Std Deviation 48.5 H 49.1 H (36.4-46.3) fL MPV 8.8 L 9.2 L (9.4-12.4) fL Neut # (Auto) 6.83 H (1.40-6.50) K/uL [place] # (Auto) 1.10 H (0.11-0.59) K/uL APTT 20 L (21-31) Seconds BUN/Creatinine Ratio 21.6 H 20.5 H (10-20) Glucose 169 H (70-99(Fasting)) mg/dl Calcium 8.2 L 8.5 L (8.6-10.3) mg/dl Total Bilirubin 1.5 H 1.2 H (0.2-1.0) mg/dl Urine Appearance Turbid A (Clear) Urine pH 8.5 H (4.5-7.5) Urine Protein 1+ H (Negative) Urine Ketones Trace H (Negative) Ur Leukocyte Esterase Trace H (Negative) Urine RBC (Auto) 3-5 H (0-2) /hpf U Hyaline Cast (Auto) 3-5 H (0-2) /lpf Lyme Disease Screen Positive H (Negative) Lyme Disease IgG Ab Positive H (Negative) Diagnostic Findings MRI brain - unremarkable (1) Syncope Syncope type: unspecified Qualified Code(s): R55 - Syncope and collapse
--- NOTE | 2023-11-27 11:32 | Orthopedic Consultation ---
Date of Consultation November 27, 2023 Assessment & Plan (1) Rotator cuff tear arthropathy of left shoulder: He has obvious chronic rotator cuff tear arthropathy in his left shoulder. This is clearly a chronic issue and has been going on for many years. He is obviously compensated well for the massive, full-thickness, retracted rotator cuff tear over the years, as he reports good shoulder motion, strength, and function. I suspect he likely aggravated his underlying arthritis with this recent incident on his riding mower. Pain should subside with time. I would recommend rest, ice, and Tylenol/ibuprofen as he is allowed with his other medical conditions. He may use a sling as needed for comfort and support, but may discontinue this as it starts feeling better. Follow-up in orthopedics clinic 1-2 weeks after discharge for further discussion of treatment options, including steroid injection or surgical intervention, namely a reverse total shoulder arthroplasty. Please call [facility] at [phone] to make an appointment. History of Present Illness Reason for Consultation: "lt shoulder discolation, tendon tear" Requesting Physician: Dr. Figueroa Attending Physician: Fabiana Figueroa MD History of Present Illness Mr. Alvarez is an 78-year-old male with history of metastatic prostate cancer, coronary artery disease status post CABG, paroxysmal atrial fibrillation, who injured his left shoulder a few days ago while riding his riding mower. He s tates that he just reached up to push a tree branch out of the way as he passed by with the mower, but held onto the branch a little too long with his left hand, and his left shoulder got pulled behind him. He felt a little bit of pain at that time, but nothing terribly significant. He had progressively worsening pain over the next day. He was then doing a vision exam at [facility], when he states that he had a syncopal episode due to the shoulder pain. Currently, he does not have a lot of pain in his left shoulder at rest, but pain and difficulty with motion. He reports that prior to this incident on his riding mower, he had fairly good motion and strength in the shoulder, with minimal pain. He does report a history of rotator cuff tear about 14 years ago in that shoulder that was treated nonoperatively. He has not had any recent treatment on his left shoulder such as injections or therapy. He denies any recent or remote shoulder dislocation. Allergies Allergy/AdvReac Type Severity Reaction Status Date / Time adalimumab [From Humira] Allergy Intermediate WAS NOT Verified 11/26/23 19:07 EFFECTED FOR TREATMENT Home Medications Medication Instructions Recorded Confirmed Type aspirin 81 mg tablet,delayed 81 mg PO QAM 01/25/19 11/26/23 History release celecoxib 200 mg capsule (Celebrex) 200 mg PO QAM 01/25/19 11/26/23 History coQ10 (ubiquinol) 200 mg capsule 200 mg PO QPM 01/25/19 11/26/23 History folic acid 1 mg tablet 1 mg PO DAILY 01/25/19 11/26/23 History rosuvastatin 20 mg tablet 20 mg PO QPM 01/25/19 11/26/23 History vitamin E 268 mg (400 unit) capsule 200 unit PO DAILY 01/25/19 11/26/23 History albuterol sulfate 90 mcg/actuation 2 puff inhalation BID PRN wheeze 05/02/23 11/26/23 History aerosol inhaler alendronate 70 mg tablet 70 mg PO WK 05/02/23 11/26/23 History famotidine 20 mg tablet 20 mg PO BID 05/02/23 11/26/23 History latanoprost 0.005 % eye drops 1 drp OPB HS 05/02/23 11/26/23 History methotrexate sodium 2.5 mg tablet 17.5 mg PO WK 05/02/23 11/26/23 History metoprolol succinate 25 mg 25 mg PO BID 05/02/23 11/26/23 History tablet,extended release 24 hr tramadol 50 mg tablet 50 mg PO Q4H PRN Pain #12 tabs 05/04/23 11/26/23 Rx abiraterone 250 mg tablet 1,000 mg PO QAM 11/26/23 11/27/23 History prednisone 10 mg tablet 10 mg PO DAILY 11/26/23 11/26/23 History Patient History Medical History CAD (coronary artery disease) s/p CABG 09/2017 History of ischemic cardiomyopathy 2/2 sustained v. tach. Interval improvement in EF. Spinal stenosis Gout Osteoarthritis BPH (benign prostatic hyperplasia) Rheumatoid arthritis GERD (gastroesophageal reflux disease) Atrial fibrillation s/p Maze procedure/pulm vein isolation/BOLIVAR clip 09/2017. No known recurrence of Afib since. Myocardial Infarction 1986 Hypertension Hyperlipidemia Chronic obstructive pulmonary disease Surgical History History of carpal tunnel release Fusion of spine History of tooth extraction History of tonsillectomy History of coronary artery bypass graft 09/2017 X 3 VESSELS (GARCIA-LAD, SVG-PDA, SVG-OM2) AT [facility] History of cardiac cath 1986 NO STENTS 2017 NO STENTS Family History Brother Family history of diabetes mellitus Grandmother (Maternal) Family history of diabetes mellitus Social History Smoking Status: Former smoker Tobacco Type: Cigarettes Second Hand Exposure: No; Do You Dip or Chew Tobacco: No; Hx Alcohol Use: No Hx Substance Use: No Preferred Language: Tamazight Communication Ability: Effective Visual Impairment: No Limitations Paper Tube Cutter Required: No Beliefs That Will Affect Care: None marital status: Current Living Situation: Spouse Feels Safe at Home: Yes Safety Concerns: Feels Safe At This Time Assistive Devices: Denture - Upper, Denture - Lower, Glasses and Hearing Aid - Bilateral Assistive Devices Comment: has dentures but does not wear Physical Exam Physical Exam: Complete shoulder exam is not feasible in his current state with cardiac monitoring. He reports pain and difficulty with shoulder abduction, but I was not able to test his full range of motion or strength. Motor and sensory functions intact distally. No gross deformity of the shoulder. Results & Data Vital Signs (Past 12 Hours) Vital Signs Temp Pulse Pulse Resp BP BP BP 11/27/23 10:48 36.9 C 76 19 125/82 11/27/23 08:00 78 11/27/23 07:02 36.7 C 67 18 127/83 11/27/23 03:50 36.9 C 81 18 129/80 11/27/23 01:39 122 H 103/73 11/27/23 01:38 122 H 103/73 Pulse Ox O2 Del Method 11/27/23 10:48 94 Room Air 11/27/23 08:00 11/27/23 07:02 96 Room Air 11/27/23 03:50 95 Room Air 11/27/23 01:39 11/27/23 01:38 94 Room Air Diagnostic Findings X-rays of the left shoulder from 11/26/23 were independently interpreted by me. They show severe advanced arthritic degeneration within the glenohumeral joint with large osteophyte formation and joint space narrowing. There is proximal migration of the humeral head and obvious remodeling changes on the greater tuberosity and undersurface the acromion consistent with chronic rotator cuff tear arthropathy. Numerous sternal wires are noted. MRI of the left shoulder from 11/26/23 shows a massive, chronic, full-thickness, retracted rotator cuff tear involving the entirety of the supraspinatus, infraspinatus, and subscapularis tendons. There is near complete fatty atrophy of those 3 muscle bellies. There is associated proximal migration of the humeral head, remodeling changes on the greater tuberosity and undersurface the acromion, and severe arthritic degeneration of the humeral head and glenoid, all consistent with fairly severe rotator cuff tear arthropathy.
--- NOTE | 2023-11-27 13:07 | Hospitalist Progress Note ---
Date of Service November 27, 2023 Assessment & Plan (1) Syncope: Plan: Pleasant 78-year-old gentleman with history of paroxysmal V. tach, atrial flutter s/p maze procedure, tachybradycardia syndrome, CAD, CABG, CHF diastolic type, COPD, pHTN, prostate cancer, rheumatoid arthritis, presenting with a syncopal episode 11/25. Of note, he had his left upper arm pulled while trying to pull a tree branch during riding mower the day prior to arrival. He then experienced severe pain in the left shoulder which persisted. Patient had eye clinic visit on the day of arrival, and while waiting when he started to have severe left shoulder pain, he felt sensation of warmth all over the body/dizziness and passed out. No generalized jerking movements as per the report. Patient denied confusion when he regained consciousness. He is being managed for the following: Likely vasovagal syncope: History of paroxysmal V. tach/A-fib status post maze procedure/tachybradycardia syndrome/PVCs Patient coming in with syncopal episode, patient noted to have PVCs/PACs by EMS. Head CT, brain MRI, CXR with no acute finding. No infarct. Syncope likely secondary to severe shoulder pain/injury. Patient does have history of syncope secondary to pain in the past. Neurology evaluated, appreciate recommendation. Cardiology evaluating, outpatient Zio patch monitoring. Continue home cardiac medications including metoprolol. Continue telemetry monitoring. Left shoulder pain Patient pulled left upper extremity the day prior to arrival [see above] Shoulder MRI: Full-thickness tears of the supraspinatus, infraspinatus, and subscapularis. Dislocation and likely tear of the biceps tendon. Severe osteoarthritis and labral degenerative changes with subluxation of the glenohumeral joint. Orthopedics evaluated, chronic rotator cuff tear arthropathy in the left shoulder, aggravated with this current incident. Recommends rest, ice, Tylenol/ibuprofen. Sling for comfort. Orthopedic follow-up in 1 to 2 weeks time upon discharge. Continue with rest/ice/topical NSAIDs. Rule out Lyme Disease: Positive IgG, Neg IgM; f/u western blot. c/w rocephin 11/25. Other chronic medical conditions: Continue with/resume home meds as and when able CAD/CABG: Continue Lipitor and aspirin CHF diastolic type: Euvolemic COPD: Not in exacerbation Prostate cancer: Continue Zytigawife will bring the medication. Continue prednisone 10 mg daily which is taken with his Zytiga DVT prophylaxis: SCDs CODE STATUS: Full code Disposition: PT/OT, CM to assist with DC planning. Admission and Anticipated Discharge Date Admission Date: November 26, 2023 Subjective Patient was seen and examined at bedside. Patient was lying in bed, on room air, NAD, resting comfortably. Patient does have left shoulder pain, no swelling or tenderness noted. Patient denies any febrile illness or chest pain or cough. Patient reports having passing out from pain in the past as well. Physical Exam Physical Exam: General- oriented x 3, not in distress, speaks in sentences with no effort or accessory muscle use Head- atraumatic Eyes- PERRL, EOMI, anicteric ENT- oropharynx clear Neck- supple, no JVD, no adenopathy, no thyromegaly; carotids +2/2, no bruits ap preciated Lungs- clear to auscultation bilaterally, no rales/wheezes Heart- normal rate, regular rhythm; no murmur, no gallop, no rub appreciated Abdomen- normal bowel sounds, nondistended, soft, nontender, no masses or hepatosplenomegaly Extremities- no pretibial edema, no calf tenderness; peripheral pulses intact Left shoulder-no warmth/tenderness, no hematoma left lower extremity-full range of motion due to pain in the left shoulder Neuro- alert, oriented x 3; CN 2-12 grossly intact; motor 5/5 bilaterally;sensation 100% on all extremities; no other gross focal neurologic deficits Skin- warm & dry Results & Data Results & Data Vital Signs (Past 12 Hours) Vital Signs Temp Pulse Pulse Resp BP BP BP 11/27/23 10:48 36.9 C 76 19 125/82 11/27/23 08:00 78 11/27/23 07:02 36.7 C 67 18 127/83 11/27/23 03:50 36.9 C 81 18 129/80 11/27/23 01:39 122 H 103/73 11/27/23 01:38 122 H 103/73 Pulse Ox O2 Del Method 11/27/23 10:48 94 Room Air 11/27/23 08:00 11/27/23 07:02 96 Room Air 11/27/23 03:50 95 Room Air 11/27/23 01:39 06/02/24 01:38 94 Room Air (1) Syncope Syncope type: unspecified Qualified Code(s): R55 - Syncope and collapse
[2023-11-27] MEDS: ABIRATERONE ACETATE 250 MG PO SCH (14:06)
[2023-11-27] MEDS: DICLOFENAC SOD 1% GEL 100 GM TUBE EXT SCH (14:09)
[2023-11-27] MEDS: cefTRIAXone SODIUM 2,000 MG/50 ML BAG IV SCH (17:38)
[2023-11-28 06:07] LABS: Hematocrit (blood only) 37.1 % (42.0-52.0); Hemoglobin 12.5 g/dl (14.0-18.0); Mean Corpuscular Hemoglobin 31.7 pg (25.0-34.0); Mean Corpuscular Hgb Conc 33.7 g/dL (32.0-36.0); Mean Corpuscular Volume 94.2 fL (80.0-100.0); Mean Platelet Volume 8.9 fL (9.4-12.4); Platelet Count 157 K/uL (130-400); RDW Coefficient of Variation 14.6 % (11.5-14.5); RDW Standard Deviation 50.8 fL (36.4-46.3); Red Blood Count 3.94 M/uL (4.70-6.10); White Blood Count 6.71 K/ul (4.8-10.8)
[2023-11-28 06:23] LABS: BUN Creatinine Ratio 23.3 (10-20); Calcium 8.4 mg/dl (8.6-10.3); Creatinine Clr Calc Pharmacy 72.1 ml/min; Est GFR (African American) 94.9 ml/min; Est GFR (Non-African American) 81.9 ml/min; Magnesium 2.2 mg/dl (1.7-2.4); Potassium 3.9 mmol/L (3.5-5.1)
[2023-11-28] MEDS: CALCIUM GLUCONATE 1,000 MG/60 ML BAG IV ONE (06:41)
--- NOTE | 2023-11-28 12:00 | Discharge Summary ---
Date of Service November 28, 2023 Admission HPI Per Admitting Provider Patient is a very pleasant 78-year-old gentleman with history of paroxysmal V. tach, atrial flutter status post maze procedure, tachybradycardia syndrome, CAD, CABG, CHF diastolic type, COPD, pulm hypertension, prostate cancer, rheumatoid arthritis, presenting with a syncopal episode this afternoon. Patient was riding his provider relations representative yesterday, tried to avoid a tree branch by reaching up for it, but unfortunately, his upper arm was pulled as held on the branch and the riding mower continued to move forward. He then experienced severe pain in the left shoulder which persisted to the evening. Patient was at the eye clinic today, sitting, when he started to have severe left shoulder pain, followed by sensation of being warm all over, and dizzy. He was witnessed to have a syncopal episode, with some facial twitching, but no generalized jerking movements as per report of people around him. Unclear as to how long patient was unconscious. Patient denies confusion when he regained consciousness. He denies having any palpitations, chest pain, shortness of breath Chart and this episode. EMS was called, en route to the hospital, frequent PVCs and PACs noted on his EKG. At the ER, patient was received with relatively stable vital signs. EKG showed normal sinus rhythm, normal rate. CT head negative for acute process. Lyme screen positive for IgG. On exam, patient seen resting in bed, comfortable, awake and alert, in good spirits. he denies having any active chest pain, shortness of breath, palpitations, dizziness. he does report left shoulder pain. Admission Exam Per Admitting Provider General- oriented x 3, not in distress, speaks in sentences with no effort or accessory muscle use Head- atraumatic Eyes- PERRL, EOMI, anicteric ENT- oropharynx clear Neck- supple, no JVD, no adenopathy, no thyromegaly; carotids +2/2, no bruits appreciated Lungs- clear to auscultation bilaterally, no rales/wheezes Heart- normal rate, regular rhythm; no murmur, no gallop, no rub appreciated Abdomen- normal bowel sounds, nondistended, soft, nontender, no masses or hepatosplenomegaly Extremities- no pretibial edema, no calf tenderness; peripheral pulses intact Left shoulder-mild edema, no warmth/tenderness, no hematoma left lower extremity-full range of motion due to pain in the left shoulder Neuro- alert, oriented x 3; CN 2-12 grossly intact; motor 5/5 bilaterally;sensation 100% on all extremities; no other gross focal neurologic deficits Skin- warm & dry Principal Diagnosis Vasovagal syncope Left shoulder pain, chronic tears. Discharge Exam General- oriented x 3, not in distress, speaks in sentences with no effort or accessory muscle use Head- atraumatic Eyes- PERRL, EOMI, anicteric ENT- oropharynx clear Neck- supple, no JVD, no adenopathy, no thyromegaly; carotids +2/2, no bruits appreciated Lungs- clear to auscultation bilaterally, no rales/wheezes Heart- normal rate, regular rhythm; no murmur, no gallop, no rub appreciated Abdomen- normal bowel sounds, nondistended, soft, nontender, no masses or hepatosplenomegaly Extremities- no pretibial edema, no calf tenderness; peripheral pulses intact Left shoulder-no warmth/tenderness, no hematoma left lower extremity-ROM improving, pain improving. Neuro- alert, oriented x 3; CN 2-12 grossly intact; motor 5/5 bilaterally;sensation 100% on all extremities; no other gross focal neurologic deficits Skin- warm & dry Discharge Data Allergies Allergy/AdvReac Type Severity Reaction Status Date / Time adalimumab [From Humira] Allergy Intermediate WAS NOT Verified 11/26/23 19:07 EFFECTED FOR TREATMENT Consultations 11/26/23 17:06 ED Decision to Admit Stat 11/26/23 18:21 Consult Neurology Routine 11/26/23 22:18 Consult Cardiology Routine 11/27/23 11:02 Consult Orthopedic Surgery Routine Ordered Studies 11/26/23 14:22 CT head/brain wo con Stat 11/26/23 19:57 MRI Shoulder [MR shoulder LT wo con] Routine 11/26/23 20:02 MRI Brain [MR brain wo con] Stat Hospital Course (1) Syncope: Pleasant 78-year-old gentleman with history of paroxysmal V. tach, atrial flutter s/p maze procedure, tachybradycardia syndrome, CAD, CABG, CHF diastolic type, COPD, pHTN, prostate cancer, rheumatoid arthritis, presenting with a syncopal episode 11/25. Of note, he had his left upper arm pulled while trying to pull a tree branch during riding mower the day prior to arrival. He then experienced severe pain in the left shoulder which persisted. Patient had eye clinic visit on the day of arrival, and while waiting when he started to have severe left shoulder pain, he felt sensation of warmth all over the body/dizziness and passed out. No generalized jerking movements as per the report. Patient denied confusion when he regained consciousness. He is being managed for the following: Likely vasovagal syncope: History of paroxysmal V. tach/A-fib status post maze procedure/tachybradycardia syndrome/PVCs Patient coming in with syncopal episode, patient noted to have PVCs/PACs by EMS. Head CT, brain MRI, CXR with no acute finding. No infarct. Syncope likely secondary to severe shoulder pain/injury. Patient does have history of syncope secondary to pain in the past. Neurology evaluated, appreciate recommendation. Cardiology evaluated, outpatient Zio patch monitoring. Continue home cardiac medications including metoprolol. Continue telemetry monitoring. Left shoulder pain Patient pulled left upper extremity the day prior to arrival [see above] Shoulder MRI: Full-thickness tears of the supraspinatus, infraspinatus, and subscapularis. Dislocation and likely tear of the biceps tendon. Severe osteoarthritis and labral degenerative changes with subluxation of the glenohumeral joint. Orthopedics evaluated, chronic rotator cuff tear arthropathy in the left shoulder, aggravated with this current incident. Recommends rest, ice, Tylenol/ ibuprofen. Sling for comfort. Orthopedic follow-up in 1 to 2 weeks time upon discharge. Continue with rest/ice/topical NSAIDs. Pt reports significant improvement w/ diclofenac gel. c/w gel. OT jason kahns is home. Rule out Lyme Disease: Positive IgG, Neg IgM; f/u western blot. c/w rocephin 11/25. Pt will be dc'd on doxcharity, pt to follow up on the final results of lyme dz to decide on antibiotic. Other chronic medical conditions: Continue with/resume home meds as and when able CAD/CABG: Continue Lipitor and aspirin CHF diastolic type: Euvolemic COPD: Not in exacerbation Prostate cancer: Continue Zytigawife will bring the medication. Continue prednisone 10 mg daily which is taken with his Zytiga DVT prophylaxis: SCDs CODE STATUS: Full code Disposition: PT/OT, CM to assist with DC planning. Follow-up with your primary care physician within a week time and likely you will need labs CBC/CMP/magnesium/phosphorus. You were evaluated for vasovagal syncope. You need outpatient Zio patch monitoring, communicate with your primary care office to set up the test. Follow-up with your cardiology as prior. For your left shoulder issues, you can utilize [id number] Voltaren gel every 4-6 hours for pain as needed. Also you can apply rest and ice to the area along with taking oral Tylenol. Follow-up with orthopedics in 1 to 2 weeks time upon discharge for further evaluation/care. As discussed at the bedside, your Lyme screen has been positive, you will be discharged on doxycycline, follow-up with your primary care physician for the final results on the Lyme confirmatory test to further decide on antibiotic. While taking doxycycline, take it with 8 ounces of water, stay upright for half an hour after taking the medications to avoid gastric symptoms. Also utilize sunscreen lotion while out in the sun during the duration of doxycycline intake. Take your medications as prescribed. Please make sure that you are able to get your medications today by calling your pharmacy before you leave the hospital so that your treatment continuity is not broken. Home Health Attestation I certify that this patient is under my care and that I, or a physicians assistant mechanic working with me, had a face to-face encounter that meets the home health [id number] encounter requirements with this patient. The encounter with the patient was in whole, or in part, for the following medical condition, which is the primary reason for home health care (list medical condition): I certify that, based on my findings, the following services are medically necessary home health services: My clinical findings support the need for the above services because: Further, I certify that my clinical findings support that this patient is homebound (i.e. absences from home require considerable and taxing effort and are for medical reasons or scientology services or infrequently or of short duration when for other reasons) because: Certification for Home Health Services: Based on the above findings, I certify that this patient is confined to the home and needs intermittent mcfp care, physical therapy and/or speech therapy or continues to need occupational therapy. The patient is under my care, and I have initiated the establishment of the plan of care. This patient will be followed by a physician who will periodically review the plan of care. Total Time Total Time Spent Total Time Spent (In Minutes): 45 Discharge Plan Discharge Items Patient Disposition: Home - Self-Care Reason For Visit: SYNCOPE Discharge Diagnosis: Vasovagal syncope Left shoulder pain, chronic tears. Activity: Resume your previous activity Non-emergency contact: Primary Care Provider Call non-emergency contact if: you have any medication questions and your symptoms worsen Follow-up/Referrals: Isaak Castro, [Primary Care Provider] - Diet: Heart Healthy Diet Texture: Easy to Chew Addtl Attending Provider Instructions: Follow-up with your primary care physician within a week time and likely you will need labs CBC/CMP/magnesium/phosphorus. You were evaluated for vasovagal syncope. You need outpatient Zio patch monitoring, communicate with your primary care office to set up the test. Follow-up with your cardiology as prior. For your left shoulder issues, you can utilize [id number] Voltaren gel every 4-6 hours for pain as needed. Also you can apply rest and ice to the area along with taking oral Tylenol. Follow-up with orthopedics in 1 to 2 weeks time upon discharge for further evaluation/care. As discussed at the bedside, your Lyme screen has been positive, you will be discharged on doxycycline, follow-up with your primary care physician for the final results on the Lyme confirmatory test to further decide on antibiotic. While taking doxycycline, take it with 8 ounces of water, stay upright for half an hour after taking the medications to avoid gastric symptoms. Also utilize sunscreen lotion while out in the sun during the duration of doxycycline intake. Take your medications as prescribed. Please make sure that you are able to get your medications today by calling your pharmacy before you leave the hospital so that your treatment continuity is not broken. Pending Studies at Discharge: Yes Stand-Alone Forms: My [employer], Smoking Cessation Medications and DC Order Prescriptions: New diclofenac sodium [Voltaren Arthritis Pain] 1 % Gel 2 g EXT Q6H PRN (Reason: pain left shoulder) Qty: 100 0RF doxycycline hyclate 100 mg tablet 100 mg PO BID 14 Days Qty: 28 0RF Continued celecoxib [Celebrex] 200 mg Capsule 200 mg PO QAM aspirin 81 mg Tablet,Delayed Release (Dr/Ec) 81 mg PO QAM folic acid 1 mg Tablet 1 mg PO DAILY vitamin E 400 unit Capsule 200 unit PO DAILY rosuvastatin 20 mg Tablet 20 mg PO QPM coQ10 (ubiquinol) 200 mg Capsule 200 mg PO QPM latanoprost 0.005 % drops 1 drp OPB HS alendronate 70 mg tablet 70 mg PO WK Rx Instructions: tues famotidine 20 mg tablet 20 mg PO BID methotrexate sodium 2.5 mg tablet 17.5 mg PO WK Rx Instructions: 7 pills metoprolol succinate 25 mg tablet extended release 24 hr 25 mg PO BID Rx Instructions: 1/2 tab in AM, 1 tab in PM albuterol sulfate 90 mcg/actuation HFA aerosol inhaler 2 puff INHALATION BID PRN (Reason: wheeze) tramadol 50 mg Tablet 50 mg PO Q4H PRN (Reason: Pain) Qty: 12 0RF prednisone 10 mg tablet 10 mg PO DAILY abiraterone 250 mg tablet 1,000 mg PO QAM Discharge Orders: Discharge Order (Routine); Ordered 11/28/23 Ordered By: Fabiana Figueroa Admission Data Admit Date/Time: 11/26/23 17:12 Attending Provider: Fabiana Figueroa Admit Provider: Dony Crockett Primary Care Provider: Isaak Castro Other Providers: Kassidy Tai; Stanley Melton; Kassidy Ro; Kendall Claros; Keven Yusuf; Gio Newell; Carlos Ramirez; Tamera Tobar; Tomás Randolph; Marcos Martinez; Cierra Colby; Geoff Black; Kristi Cox; Marta MarshWayne; Carlos Navarro; Dony Crockett; Polina Anne; Marco A Villagomez; Martinez Longoria; Derek Del Valle; Steve Robles; Pradip Pitt; Ada Samayoa; Kassidy Crawford; Keiko Colin; Polina Coyne; Dieter Conn; Seamus Lewis; Maribell Wilson; Padmaja Colón; Lena Acosta; Golden Delacruz; Joel Alford; Gila Escalante; Geoff Colon
--- NOTE | 2023-11-28 13:59 | Cardiology Progress Note ---
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 Patient with known CAD, borderline Tachy-Omar Syndrome, and paroxysmal atrial fibrillation status post left atrial appendage clip. History is most suggestive of a vasovagal episode. Telemetry benign. Resting echocardiography on on 11/27/2023 revealed preserved LVEF, 55-60%, mild concentric LVH, moderate sized inferior and posterior wall motion abnormality with hypokinesis to akinesis of the segments (old, known), mild aortic valve sclerosis, and mild mitral regurgitation. Recommend outpatient Zio monitor post discharge. Continue metoprolol succinate as prescribed. Continue aspirin and statin. I spent a total of 32 minutes on the date of service in preparation, delivery, and documentation of the care provided to this patient excluding any time spent in the performance of separately billed services. This visit was a split-shared visit with the substantive portion of the medical decision making performed by the supervising inspector tool/billing provider. Admission and Anticipated Discharge Date Admission Date: November 26, 2023 Supervising Physician Co-Signing Physician Notes Case discussed with Pradip Pitt PA-C. Agree with assessment and plan as documented. Patient discharged prior to me having the opportunity to examine him in person. Isabela Villagomez DO 4:57 pm. Subjective Patient seen and examined. Chart, medications, and telemetry reviewed. at bedside. Feeling well. No complaints. Ready for discharge. Laying supine, denying chest pain, palpitations, unusual shortness of breath, orthopnea, PND, edema, dizziness, near syncope, or syncope. Telemetry: Sinus in the 60's to 80's, with an occasional PVC. Review of Systems Review of Systems: Complete Review of Systems is as stated above, negative, or noncontributory. Physical Exam Physical Exam: General: A&Ox3. NAD. HENT: Normocephalic. Atraumatic. Eyes: PER. Conjunctiva pink, sclera clear. Neck: Carotid bruits. No JVD. No HJR. Heart: Regular with an occasional ectopic beat. No murmur. Lungs: Clear to auscultation. Abdomen: +BS. Soft. Nontender. No masses or organomegaly. Extremities: No clubbing, cyanosis, or edema. Limited neurological examination is without focal deficits. Pulses: Posterior tibial=2/4. Results & Data Vital Signs (Past 12 Hours) Vital Signs Temp Pulse Pulse Resp BP BP Pulse Ox 11/28/23 12:13 36.7 C 72 18 119/77 128/76 96 11/28/23 11:35 36.7 C 72 18 119/77 96 11/28/23 08:00 82 11/28/23 07:03 36.6 C 67 19 137/82 95 11/28/23 02:36 36.6 C 71 19 125/77 95 O2 Del Method 11/28/23 12:13 11/28/23 11:35 Room Air 11/28/23 08:00 11/28/23 07:03 Room Air 11/28/23 02:36 Room Air Laboratory Results CBC 11/28/23 Range/Units 05:37 WBC 6.71 (4.8-10.8) K/ul RBC 3.94 L (4.70-6.10) M/uL Hgb 12.5 L (14.0-18.0) g/dl Hct 37.1 L (42.0-52.0) % Plt Count 157 (130-400) K/uL Comprehensive Metabolic Panel 11/28/23 Range/Units 05:37 Sodium 143 (136-145) mmol/L Potassium 3.9 (3.5-5.1) mmol/L Chloride 110 H (98-107) mmol/L Carbon Dioxide 29 (21-32) mmol/L BUN 20 (6-23) mg/dl Creatinine 0.86 (0.6-1.4) mg/dl Glucose 108 H (70-99(Fasting)) mg/dl Calcium 8.4 L (8.6-10.3) mg/dl Intake and Output 11/27/23 11/28/23 11/28/23 22:59 06:59 14:59 Intake Total 2132 60 / 60 Balance 2132 60 / 60 Intake: IV 983 / 983 60 / 60 Calcium Gluconate 1,000 mg In 60 / 60 60 ml @ 240 mls/hr IV NOW ONE Rx#:[id number] Sodium Chloride 0.9% 1,000 ml @ 933 / 933 150 mls/hr IV .[id number] ONE Rx#: [id number] cefTRIAXone SODIUM 2,000 mg In 50 / 50 50 ml @ 100 mls/hr IV Q24H ISAAC Rx#:[id number] Oral 1150 / 1250 100 / 1250 Other: Weight 83.5 kg 83.5 kg Patient Weight 11/29/23 06:59 Weight 83.5 kg (1) Syncope Syncope type: unspecified Qualified Code(s): R55 - Syncope and collapse (4) Coronary artery disease Associated angina: without angina Coronary Disease-Associated Artery/Lesion type: [place] artery [place] vs. transplanted heart: [place] heart Qualified Code(s): I25.10 - Atherosclerotic heart disease of [place] coronary artery without angina pectoris
--- NOTE | 2023-11-29 21:18 | Electrocardiogram Report ---
Test Reason : Blood Pressure : / mmHG Vent. Rate : 077 BPM Atrial Rate : 077 BPM P-R Int : 168 ms QRS Dur : 076 ms QT Int : 398 ms P-R-T Axes : 031 039 061 degrees QTc Int : 450 ms Normal sinus rhythm Normal ECG When compared with ECG of 28-FEB-2019 08:26, Premature ventricular complexes are no longer Present Confirmed by Jason Lofton ([id number]) on 11/29/2023 9:18:46 PM Referred By: REFERRED SELF Confirmed By:Jason Lofton
[2023-11-30 03:22] LABS: 18KDIGG Band REACTIVE; 23KDIGG Band NON-REACTIVE; 23KDIGM Band NON-REACTIVE; 28KDIGG Band REACTIVE; 30KDIGG Band NON-REACTIVE; 39KDIGG Band REACTIVE; 39KDIGM Band NON-REACTIVE; 41KDIGG Band REACTIVE; 41KDIGM Band NON-REACTIVE; 45KDIGG Band NON-REACTIVE; 58KDIGG Band REACTIVE; 66KDIGG Band NON-REACTIVE; 93KDIGG Band REACTIVE; Lyme Antibodies, WB IgG POSITIVE (NEGATIVE); Lyme Antibodies, WB IgM NEGATIVE (NEGATIVE)
== END 2023-11-28 14:16 | disposition home or self-care (01) | DRG 312 ==
LOC: ED 14:08 → SUATTDRO 17:12 → 4W 17:12